=== PATIENT | female | born 1950 | race Caucasian/White ===

== ENCOUNTER 2023-10-06 15:30 | Observation (INO) | payer MEDICARE, SELFPAY ==
[2023-10-06] VITALS (23 sets, daily range): BP systolic 102–136; BP diastolic 52–66; PULSE 75–94; RESP 16–20; TEMP 36.4–36.8; O2SAT 95–100; BMI 24.4; BMI 25.4
--- NOTE | 2023-10-06 16:07 | CRLHL7_ITS ---
For Patients: As a result of the Century Cures Act, medical imaging exams and procedure reports are released immediately into your electronic medical record. You may view this report before your referring provider. If you have questions, please contact your health care provider. CLINICAL HISTORY: Left facial droop. TECHNIQUE: Standard helical CT image acquisition through the head following the administration of intravenous contrast was performed. 3D and MIP reconstructions were performed at a separate workstation and permanently archived. COMPARISON: None available. FINDINGS: No intracranial proximal large vessel occlusion or flow-limiting luminal stenosis. No evidence of cerebral aneurysm. No findings to suggest an arterial-venous shunting lesion. IMPRESSION: No intracranial proximal large vessel occlusion, flow-limiting luminal stenosis, or cerebral aneurysm. Please note that all CT scans at this facility use dose modulation, iterative reconstruction, and/or weight-based dosing when appropriate to reduce radiation dose to as low as reasonably achievable. Dictated by Osmany Hope MD @ 10/06/2023 5:03:05 PM (Electronically Signed)
--- NOTE | 2023-10-06 16:07 | CRLHL7_ITS ---
For Patients: As a result of the Century Cures Act, medical imaging exams and procedure reports are released immediately into your electronic medical record. You may view this report before your referring provider. If you have questions, please contact your health care provider. CLINICAL HISTORY: Left facial droop. TECHNIQUE: Standard helical CT image acquisition through the neck was performed after intravenous contrast bolus enhancement. 3D and MIP reconstructions were performed at a separate workstation and permanently archived. COMPARISON: None available. FINDINGS: The origins of the great vessels from the aortic arch are patent. The common carotid arteries are patent. 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 No significant stenosis of the proximal right ICA. The more distal cervical segments of the ICAs are patent. The origins and cervical segments of the vertebral arteries are patent. Note is made of corrugated morphology of the mid to distal cervical ICAs which may reflect underlying fibromuscular dysplasia IMPRESSION: 1. 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 2. Findings in the cervical arterial vasculature are suggestive of fibromuscular dysplasia. Please note that all CT scans at this facility use dose modulation, iterative reconstruction, and/or weight-based dosing when appropriate to reduce radiation dose to as low as reasonably achievable. Dictated by Osmany Hope MD @ 10/06/2023 5:01:28 PM (Electronically Signed)
--- NOTE | 2023-10-06 16:07 | CRLHL7_ITS ---
For Patients: As a result of the Century Cures Act, medical imaging exams and procedure reports are released immediately into your electronic medical record. You may view this report before your referring provider. If you have questions, please contact your health care provider. CLINICAL HISTORY: Left facial droop. TECHNIQUE: Standard helical CT image acquisition through the head was performed. COMPARISON: None available. FINDINGS: No acute intracranial hemorrhage, extra-axial collection, mass effect or midline shift. Leonard-white matter differentiation is preserved. Very mild generalized parenchymal volume loss with resulting mild prominence of cerebral sulci and the ventricular system. Mild patchy hypoattenuation in the white matter of both hemispheres likely reflect sequela of chronic small vessel ischemia. Intracranial atherosclerotic calcification. The calvarium is unremarkable. Thinning of the ocular lenses. The paranasal sinuses and mastoid air cells are well aerated. IMPRESSION: No CT evidence of acute intracranial abnormality. Please note that all CT scans at this facility use dose modulation, iterative reconstruction, and/or weight-based dosing when appropriate to reduce radiation dose to as low as reasonably achievable. Dictated by Osmany Hope MD @ 10/06/2023 4:55:55 PM (Electronically Signed)
--- NOTE | 2023-10-06 16:09 | ED_ITS ---
HPI - General Adult General Date Seen: 10/06/23 Chief complaint: Neuro Symptoms/Altered Deficit Stated complaint: headache, painful, not feeling well Time Seen by Provider: 10/06/23 15:47 Source: patient Mode of arrival: ambulatory Limitations: no limitations History of Present Illness HPI narrative: Patient is a 73-year-old female presenting to emergency department for multiple complaints. Main complaint is a headache, nausea, heart racing, neck pain. Symptoms started last night around midnight and have persisted throughout the day. She also feels unsteady walking. When they arrived her friend noticed a left facial droop but states she was not pain and tension earlier in does not know this just occurred or has been going on since yesterday. Initially a code stroke was called by staff but this was canceled due to how long symptoms have been going on for. Patient states she initially thought this was a migraine but she now says this is not feel like previous migraines. Denies symptoms like this before. Denies fevers, chills, abdominal pain. Has not noticed any specific weakness in her extremities. Denies weakness, vision changes. Is having some chest pain that does not radiate. Neck pain is on the lateral aspect of the neck in does not hurt with movement or raising of the legs. No other concerns noted. Related Data Home Medications ?Medication ?Instructions ?Recorded ?Confirmed bupropion HCl 300 mg 24 hr tablet, 300 mg PO DAILY 10/06/23 10/06/23 extended release clonazepam 1 mg tablet 1 mg PO 3XD PRN 10/06/23 10/06/23 famotidine 40 mg tablet 40 mg PO QPM 10/06/23 10/06/23 lubiprostone 24 mcg capsule PO 10/06/23 metoclopramide HCl 10 mg tablet PO 10/06/23 omeprazole 40 mg capsule,delayed 40 mg PO BID 10/06/23 10/06/23 release potassium chloride 20 mEq oral 20 meq PO Q1D 10/06/23 10/06/23 packet (Klor-Con) topiramate 100 mg tablet 100 mg PO QPM 10/06/23 10/06/23 topiramate 25 mg tablet 25 mg PO DAILY 10/06/23 10/06/23 Allergies Allergy/AdvReac Type Severity Reaction Status Date / Time amoxicillin [From Augmentin] Allergy Verified 10/06/23 16:18 clavulanic acid Allergy Verified 10/06/23 16:18 [From Augmentin] duloxetine [From Cymbalta] Allergy Verified 10/06/23 16:18 nitrofurantoin Allergy Verified 10/06/23 16:18 [From Macrobid] Review of Systems Status of ROS: Reports: 10 or more systems reviewed and unremarkable except as noted in History and below [facility] Social History Smoking Status: Never smoker Do you use any of these nicotine containing products: None Second hand tobacco smoke exposure: No How often do you have a drink containing alcohol: never AUDIT-C Alcohol total score: 0 Non-prescribed substance use: denies use Exam Narrative: Exam Narrative: Const: Well-nourished, Well-developed, in moderate distress Eyes: PERRL, no conjunctival injection, and symmetrical lids HENT: Atraumatic external nose and ears. Moist mucous membranes. Neck: Symmetric, trachea midline, No thyromegaly. CVS: RRR, No murmurs or gallops. Peripheral pulses 2+ and equal in all extremities RESP: Unlabored respiratory effort. Clear to auscultation bilaterally. GI: Nontender/Nondistended, No rebound or guarding. MSK:Extremities w/o deformity, Normal Active ROM Skin: Warm, Dry. No rashes or lesions. Neuro: Normal Muscle tone, Cranial nerves 2-12 grossly intact other than noted left facial droop just involving the lower half of the face when she tries to smile, normal [id number], normal [id number], slight unsteady gait, normal strength 5/5 right upper and lower extremities. Left upper extremity 4+/5 strength, left lower extremity 3/5, normal sensation upper and lower extremities bilaterally, normal rapid alternating movements. Negative Kernig's and Brudzinski sign Psych: Awake, Alert, & Oriented x3. Appropriate mood and affect. Const: Vital Signs, click to edit/add: Vital Signs - 24 hr 10/06/23 15:40 Temperature 97.7 F Pulse Rate [Pulse Oximeter] 94 Respiratory Rate 20 Blood Pressure [Le ft Upper Arm] 136/62 Pulse Oximetry 95 Oxygen Delivery Me thod Room Air Course Vital Signs Vital signs: Initial Vital Signs Temperature 97.7 F 10/06/23 15:40 Temperature Source Temporal Artery Scan 10/06/23 15:40 Pulse Rate 94 10/06/23 15:40 Respiratory Rate 20 10/06/23 15:40 Blood Pressure 136/62 10/06/23 15:40 Blood Pressure Mean 86 10/06/23 15:40 Blood Pressure Position Semi-Fowlers 10/06/23 15:40 Pulse Oximetry 95 10/06/23 15:40 Oxygen Delivery Method Room Air 10/06/23 15:40 Vital Signs Temperature 97.7 F 10/06/23 15:40 Pulse Rate 94 10/06/23 15:40 Respiratory Rate 20 10/06/23 15:40 Blood Pressure 136/62 10/06/23 15:40 Pulse Oximetry 95 10/06/23 15:40 Oxygen Delivery Method Room Air 10/06/23 15:40 Temperature 97.7 F 10/06/23 15:40 Pulse Rate 94 10/06/23 15:40 Respiratory Rate 20 10/06/23 15:40 Blood Pressure 136/62 10/06/23 15:40 Pulse Oximetry 95 10/06/23 15:40 Oxygen Delivery Method Room Air 10/06/23 15:40 Medications Administered Medications: Discontinued Medications Generic Name Dose Route Start Last Admin Trade Name Freq PRN Reason Stop Dose Admin Diphenhydramine HCl 25 mg 10/06/23 16:07 10/06/23 16:42 Diphenhydramine 50 Mg/Ml Inj IVP 10/06/23 16:08 25 mg ONCE ONE Administration Lactated Ringer's 1,000 mls @ 1,000 mls/hr 10/06/23 16:07 10/06/23 16:42 Lactated Ringers 1000 Ml IV 10/06/23 17:06 1,000 mls/hr .Q1H ONE Administration Metoclopramide HCl 10 mg 10/06/23 16:07 10/06/23 16:42 Metoclopramide Hcl 5 Mg/Ml Inj IVP 10/06/23 16:08 10 mg ONCE ONE Administration Medical Decision Making MDM Narrative Medical decision making narrative: Patient is a 73-year-old female here for multiple complaints. When she 1st arrived there was some concern about left facial droop and a code stroke was called but this was canceled as her symptoms have been going on since at least midnight. She is not candidate for tPA at this time. She is also pleural headache, nausea, neck pain, heart racing. She has negative Kernig's and Brudzinski's and no obvious signs of meningitis at this time. Will treat her headache with a migraine cocktail including Reglan, Benadryl, 1 L of fluids. Also do CT scan of the head without contrast lung CTA of the head and neck. CBC, CMP, COVID/flu/RSV, magnesium, urinalysis, troponin, EKG all ordered. CBC, CMP returned showing no concerning abnormalities. COVID/flu/RSV is negative. Point of care troponin is 1.2 along with a point care troponin that is 0. EKG shows no concerning findings. Patient has finished her medications in the still having slight headache but states it is better. She is no longer noticing the chest discomfort. CT and CTA showed no acute abnormalities other than mild arthrosclerotic stenosis the proximal left ICA along with findings of the cervical arterial vascular dissect justify fibromuscular dysplasia. I spoke to [facility] about the patient's left leg weakness and left facial droop and while this seems like an odd combination for a stroke they do recommend MRI in the morning. The facial weakness does spare the forehead in seems unlikely to be Sams's palsy. Patient will be admitted to the hospitalist service Lab Data Labs: Lab Results 10/06/23 10/06/23 Range/Units 15:45 16:13 WBC 7.37 (4.50-11.00) K/uL RBC 3.99 L (4.00-5.20) m/uL Hgb 12.1 (12.0-16.0) gm/dL Hct 37.0 (33.0-51.0) % MCV 93 (80-100) fL MCH 30 (26-34) pg MCHC 33 (32-36) gm/dL RDW Coeff of Krystina 13.0 (11.5-15.5) % Plt Count 270 (140-440) K/uL Neut % (Auto) 56.6 (42.0-72.0) % Lymph % (Auto) 33.4 (20-44) % [place] % (Auto) 8.8 (0.0-11.0) % Eos % (Auto) 0.8 (0.0-7.0) % Baso % (Auto) 0.3 (0.0-3.0) % Neut # (Auto) 4.17 (1.7-7.0) K/uL Lymph # (Auto) 2.46 (0.90-2.90) K/uL [place] # (Auto) 0.60 (0.00-0.90) K/UL Eos # (Auto) 0.06 (0.00-0.50) K/uL Baso # (Auto) 0.02 (0.00-0.30) K/uL Abs Immat Gran (auto) 0.01 (0.00-0.30) K/uL Imm/Tot Granulo (auto) 0.1 % Sodium 137 (135-149) mmol/L Potassium 3.7 (3.6-5.1) mmol/L Chloride 105 (96-114) mmol/L Carbon Dioxide 21 (20-32) mmol/L Anion Gap 11 (7-15) mEq/L BUN 16 (7-30) mg/dL Creatinine 1.0 (0.5-1.5) mg/dL Estimated Creat Clear 42.07 Estimated GFR 60 ml/min Glucose 103 (60-115) mg/dL Calcium 9.6 (8.4-10.6) mg/dL Magnesium 1.9 (1.5-2.6) mg/dL Total Bilirubin 0.4 (0.1-1.5) mg/dL AST 35 (12-35) U/L ALT 22 (4-35) U/L Alkaline Phosphatase 70 (40-150) U/L Total Protein 7.4 (6.0-8.3) g/dL Albumin 4.6 (3.3-5.0) g/dL SARS-CoV-2 (PCR) Negative SARS-CoV-2 (Negative) Influenza Type A (PCR) Negative PCR FLU A (Negative) Influenza Type B (PCR) Negative PCR FLU B (Negative) RSV (PCR) Negative PCR RSV (Negative) POC Creatinine 1.2 (0.6-1.3) mg/dl POC Troponin I 0.00 L (0.01-0.04) ng/ml Imaging Data CT scan head: Attestation: I have reviewed the pertinent imaging results. Radiologist's impression: No CT evidence of acute intracranial abnormality. Please note that all CT scans at this facility use dose modulation, iterative reconstruction, and/or weight-based dosing when appropriate to reduce radiation dose to as low as reasonably achievable. Dictated by Osmany Hope MD @ 10/06/2023 4:55:55 PM CTA head: Attestation: I have reviewed the pertinent imaging results. Radiologist's impression: No intracranial proximal large vessel occlusion, flow-limiting luminal stenosis, or cerebral aneurysm. Please note that all CT scans at this facility use dose modulation, iterative reconstruction, and/or weight-based dosing when appropriate to reduce radiation dose to as low as reasonably achievable. Dictated by Osmany Hope MD @ 10/06/2023 5:03:05 PM CTA neck: Attestation: I have reviewed the pertinent imaging results. Radiologist's impression: 1. 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 2. Findings in the cervical arterial vasculature are suggestive of fibromuscular dysplasia. Please note that all CT scans at this facility use dose modulation, iterative reconstruction, and/or weight-based dosing when appropriate to reduce radiation dose to as low as reasonably achievable. Dictated by Osmany Hope MD @ 10/06/2023 5:01:28 PM ECG Data Attestation: I personally reviewed and interpreted this ECG as follows: Prior ECG tracings: not available for review Interpretation: Normal sinus rhythm with rate 91 beats per minute, normal intervals, normal axis, no ST or T-wave abnormalities Discharge Plan Discharge Clinical Impression: Left leg weakness, Facial droop Patient Disposition: Admitted As Observation Condition: Stable Prescriptions: No Action famotidine 40 mg tablet 40 mg PO QPM clonazepam 1 mg tablet 1 mg PO 3XD PRN topiramate 25 mg tablet 25 mg PO DAILY omeprazole 40 mg capsule,delayed release(DR/EC) 40 mg PO BID potassium chloride [Klor-Con] 20 mEq packet 20 meq PO Q1D topiramate 100 mg tablet 100 mg PO QPM metoclopramide HCl 10 mg tablet PO bupropion HCl 300 mg tablet extended release 24 hr 300 mg PO DAILY lubiprostone 24 mcg capsule PO Follow Up/Referrals: Maria Luisa Gant MD [Primary Care Provider] -
--- OUTSIDE RECORDS SUMMARY | 2023-10-06 16:18 | XMS_ITS | Continuity of Care Document ---
Author Organization [facility] Address [address] [place] [address] Phone Care Team Providers Care Transmitter Chief Name Role Phone Ryan Goldberg MD Unavailable Unavailable Advance Directives Directive Yes / No Effective Date File Name No Information Encounters Encounter Description Practice Location Reason(s) For Visit Diagnoses Date Provider Providers Copied on Encounter [facility], [address], [place], [address], [place] tel:[phone] [facility], No Information Jun-2 2-201 3 Ashlyn Davis. [facility] [address], [place], [address], [place]. tel:[phone] Family History Family Member Type Diagnosis Age At Onset No Information Payers Payer name Insurance type Covered republican ID Authoriza tion(s) No Information Social History Type Description Quantity Date Captured Comments Sex Female Smoking Status No Information Chief Complaint And Reason For Visit No Information Reason For Referral Reason For Referral No Information History Of Present Illness Encounter Date Complaint History Of Prese nt Illness No Information Functional Status Date Functional Assessmen t No Information Instructions Date Instruction Additional Infor mation No Information Assessments Type Assessment Date No Information Patient Care Teams Name Effective Dates (start - stop) Status Members No Information
--- OUTSIDE RECORDS SUMMARY | 2023-10-06 16:18 | XMS_ITS | Continuity of Care Document ---
Author Organization [facility] Address [address] [place] [address] Phone Care Team Providers Care Suction Roller Name Role Phone Fred Larkin Unavailable Unavailable Allergies, Adverse Reactions, Alerts Substance Reaction Status Criticality amitriptyline Active No Information nitrofurantoin Active No Informatio n duloxetine Active No Information codeine Active No Information Medications Medication Instructions Dosage Effective Dates (start - stop) Status Comments ZOMIG (unknown strength) Not Available - Active VALTREX (unknown strength) Not Available - Active TOPIRAMATE (unknown strength) Not Available - Active OMEPRAZOLE (unknown strength) Not Available - Active LEVOTHYROXINE SODIUM (unknown strength) Not Available - Active CLONAZEPAM (unknown strength) Not Available - Active VITAMIN D3 (unknown strength) Not Available - Active EXCEDRIN MIGRAINE (unknown strength) Not Available - Active TIZANIDINE HCL (unknown strength) Not Available - Active Procedures Procedure Date Office/Outpatient Visit,Est, Mod 2018 Office/Outpatient Visit,New, Mod 2018 Advance Directives Directive Yes / No Effective Date File Name No Information Encounters Encounter Description Practice Location Reason(s) For Visit Diagnoses Date Provider Providers Copied on Encounter [facility], [address], [place], [id number], [place] tel:[phone] [facility] No Information [address] [facility], [address], [place], [id number] , [place]. [phone] Office/Outpat ient Visit,Est, Mod [facility], [address], [place], [id number], [place] tel:[phone] [facility] Other spondylosis, cervical region 9 Julio Ibarra. [facility], [address] [facility] [address], [place], [place], [id number] , . [phone] Referring Provider: [facility] [address], [place], [address]. tel:[phone] Office/Outpat ient Visit,New, Mod [facility], [address], [place], [place], [id number], tel:[phone] [facility] Other spondylosis, cervical region [address] [facility], [address], [place], [place], [id number] , [place]. [phone] Referring Provider: [facility] Bello [facility] [address], [place], [address]. tel:[phone] Family History Family Member Type Diagnosis Age At Onset No Information Payers Payer name Insurance type Covered democrat ID Authoriza tion(s) No Information Social History [...]
[2023-10-06 16:19] LABS: Basophils Absolute Auto 0.02 K/uL (0.00-0.30); Basophils Percent Auto 0.3 % (0.0-3.0); Eosinophils Absolute Auto 0.06 K/uL (0.00-0.50); Eosinophils Percent Auto 0.8 % (0.0-7.0); Hemoglobin* 12.1 gm/dL (12.0-16.0); Immature Granulocytes Abs Auto 0.01 K/uL (0.00-0.30); Immature Granulocytes Pct Auto 0.1 %; Lymphocytes Absolute Auto 2.46 K/uL (0.90-2.90); Lymphocytes Percent Auto 33.4 % (20-44); Mean Corpuscular HGB Conc 33 gm/dL (32-36); Mean Corpuscular Hemoglobin 30 pg (26-34); Mean Corpuscular Volume 93 fL (80-100); Monocytes Percent Auto 8.8 % (0.0-11.0); Neutrophils Absolute Auto 4.17 K/uL (1.7-7.0); Neutrophils Percent Auto 56.6 % (42.0-72.0); Platelet Count* 270 K/uL (140-440); Red Blood Count 3.99 m/uL (4.00-5.20); White Blood Count* 7.37 K/uL (4.50-11.00)
--- OUTSIDE RECORDS SUMMARY | 2023-10-06 16:19 | XMS_ITS | Clinical Summary ---
Author Organization [facility] Address [place], [place] [address] Care Team Providers Care Safety Net Maker Name Role Phone Dawsonkaran Tameka Coello MANAGER GOVERNMENT Unavailable [phone] Larry Cole MD Unavailable Marcy Escobar RN Unavailable Hola Michael MD Unavailable Sadie Santana MANAGER GOVERNMENT Unavailable [phone] Malika Cortes TITLE CURATOR Unavailable [phone] Medardo Escamilla DO Unavailable Maria Luisa Gant MD Primary Care Provider Allergies Active Allergy Reactions Criticality Noted Date Comments Amitriptyline Mental Status Change,*Unknown - Follow up needed 03/02/2014 Amoxicillin-Pot Clavulanate Stomach Upset 01/28/2014 Duloxetine Anxiety 09/17/2011 Induced suicidal thoughts Duloxetine Hcl Emotional Disturbance 10/06/2012 Nitrofurantoin Palpitations High 07/16/2012 Other reaction(s): Adverse reaction heart races Ondansetron Other - Describe In Comment Field Not sure if allergic or not Medications Medication Sig Dispensed Refills Start Date End Date Status omeprazole (PRILOSEC) 40 mg Delayed-Release capsule Take one capsule twice a day. 0 02/16/2019 Active LINZESS 290 mcg cap capsule 12/27/2019 Active AMITIZA 24 mcg capsule 12/17/2019 Active metoclopramide HCl (REGLAN) 10 mg tablet Take 10 mg by mouth. 05/18/2020 Active cholecalciferol (Vitamin D) 1,000 unit capsuleIndications:Vi tamin D deficiency Take 2 Capsules (2,000 units) by mouth once daily. 180 Capsule 3 03/02/2021 Active acetaminophen (TYLENOL EXTRA STRGTH) 500 mg tablet MAY TAKE 1-2 TABLETS BY MOUTH EVERY 4-6 HOURS NEEDED FOR PAIN 03/14/2021 Active topiramate (TOPAMAX) 100 mg tablet Take 100 mg by mouth at bedtime. 06/06/2022 Active Nurtec ODT 75 mg orally disintegrating tablet DISSOLVE 1 TABLET ON THE TONGUE AT ONSET OF MIGRAINE. NO MORE THAN 1 TABLET IN 24 HOURS. NO MORE THAN 8 PILLS PER MONTH 05/31/2022 Active dextroamphetamine-amp hetamine (AdderalL) 10 mg tabletIndications:Dep ression, unspecified depression type Take 1 Tablet (10 mg) by mouth 2 times daily at 7 AM and Noon. 180 Tablet 08/15/2023 Active buPROPion (WELLBUTRIN XL) 300 mg Extended-Release tabletIndications:Dep ression, unspecified depression type Take 1 Tablet (300 mg) by mouth once daily. 90 Tablet 3 08/15/2023 Active clonazePAM (KLONOPIN) 1 mg tabletIndications:Gen eralized anxiety disorder Take 1 Tablet (1 mg) by mouth 3 times daily if needed for Anxiety or Agitation (akathisia). 270 Tablet 1 08/15/2023 Active sennosides-docusate (SENOKOT S) (8.6-50 mg) tabletIndications:S/P laparoscopic cholecystectomy Take 1 Tablet by mouth 2 times daily if needed for Constipation. 20 Tablet 08/15/2023 Active potassium chloride (K-RAO) 20 mEq packetIndications:Hyp okalemia Mix one packet with liquid and take by mouth every other day. 45 Packet 1 08/15/2023 Active cetirizine (ZYRTEC) 10 mg tabletIndications:[place] allergic rhinitis due to pollen Take 1 Tablet (10 mg) by mouth once daily if needed for Allergy Symptoms. 90 Tablet 08/15/2023 Active tiZANidine (ZANAFLEX) 2 mg tabletIndications:Chr onic TMJ pain TAKE 1 TABLET BY MOUTH DAILY FOR MUSCLE TIGHTNESS IN JAW AND NECK. MAY TAKE 1 ADDITIONAL TABLET DAILY NEEDED FOR HEADACHE OR TMJ PAIN. 30 Tablet 1 08/15/2023 Active valACYclovir (VALTREX) 500 mg tabletIndications:HSV -1 (herpes simplex virus 1) infection Take 1 Tablet (500 mg) by mouth once daily. 90 Tablet 2 08/15/2023 Active topiramate (TOPAMAX) 25 mg tabletIndications:[place] without status migrainosus, not intractable, unspecified migraine type 1 tablet daily with 100 mg tablet to make 125 mg daily 100 Tablet 3 08/15/2023 Active doxycycline 100 mg tabletIndications:Acu te non-recurrent maxillary sinusitis Take 1 Tablet (100 mg) by mouth two times daily before meals for 10 days. 20 Tablet 08/30/2023 4 Active Problems Problem Noted Date Diagnosed Date Chronic cholecystitis 07/23/2023 Persistent depressive disorder 05/16/2022 Steatosis 10/21/2021 Adenomatous polyp of colon 01/11/2020 Overview: Dec 2019- repeat 5 years. Prediabetes 12/30/2019 Overview: Dx Dec 2019. A1c 5.7 Esophageal dysmotility 04/27/2019 Overview: Nov 2018 swallow study: Esophageal dysmotility, Reflux Following with [facility] esophagus expert Dr. Sherman Chronic GERD 02/01/2019 Overview: Confirmed on endoscopy by GI. Ok to continue BID PPI> Actinic keratosis 02/02/2018 Overview: Derm exam with biopsies JAN 2018 and September 2018 TMJ (temporomandibular joint disorder) 8 Overview: Evaluated by ENT as well as TMJ specialist at [facility] 07/18/17. Depression, major, recurrent, mild 04/01/2017 Panic disorder without agoraphobia 05/08/2016 Sensorineural hearing loss, bilateral 08/30/2014 Overview: Has hearing aids Osteoporosis 06/02/2013 Overview: Dx 2013: started Reclast sometime after that. Improvement on subsequent Dexa scans (2015, 2017, 2019). Got Reclast yearly (2014, 2015, 2016, 2018, 2019) through immunology clinic but as of 2021 they were no longer doing this for an unknown reason. Transferred managemetn to PCP but as she had >5 years of Reclast this was not continued. Offered Endo consult to determine if other reason to continue medication. Dexa 2022 - 12% worsening in BMP at spine. Discussed referral to Endo for further review given hx. Chronic Pain Syndrome: effec mental health and is exacerbated by M.H. 05/26/2012 Migraine headache 05/22/2012 Overview: Follows with [facility]. Liver disease 11/26/2011 Overview: Moderated steatohepatitis based on 2017 biopsies Autoimmune hepatitis mananged through [place] (Dr Valero) Osteoarthritis 09/20/2011 Overview: Knees, feet, hands, neck. Not rheumatoid. HSV-1 (herpes simplex virus 1) infection 011 Overview: Takes Valtrex daily to prevent outbreak Degeneration of cervical intervertebral disc Overview: Has seen [facility] Sjogren's syndrome 04/26/2008 Overview: Follows with [facility] Dr Camacho every 6 months. Generalized anxiety disorder 2006 Selective IgA immunodeficiency Overview: Follows with [facility] Dr Camacho every 6 months. Fibromyalgia Resolved Problems Problem Noted Date Diagnosed Date Resolved Date Protein-calorie malnutrition , unspecified severity 10/21/2021 06/24/2023 Dysthymic disorder 10/15/2014 6 CRPS (complex regional pain syndrome), lower limb 03/02/2014 04/30/2014 Overview: EMG Right lower extremity Nov 2013: Normal. Anemia 06/25/2013 11/20/2013 Generalized anxiety disorder 11/19/2012 11/19/2012 Rule out Panic disorder without agoraphobia 05/26/2012 07/09/2014 Major depressive disorder in partial remission 09/20/2011 04/01/2017 Shoulder impingement syndrome 09/17/2011 04/27/2019 Mild right patellofemoral osteoarthritis 09/17/2011 09/20/2011 Headache(784.0) 09/17/2011 05/22/2012 Adjustment disorder with depressed mood 2006 09/20/2011 Encounters Date Type Department Care Team Description 09/25/2023 1:30 PM CDT Telemedicine [facility] [address] [place] [address] Hola Michael MD Telehealth; Medication Management (Follow up) 09/23/[address] [address] Hola Michael MD ETTA ([facility] for ANITRA Letter/) 09/21/2023 Travel 09/19/2023 11:30 AM CDT Ancillary Procedure [facility] [address] [place] [address] 09/19/2023 Telephone [facility] [address] [place] [address] Maria Luisa Gant MD Referral (stomach x-ray) 09/18/2023 1:00 PM CDT Telemedicine [facility] [address] [place] [address] Deepti Roberts PsyD, PÉREZ Telehealth; Trmt Plan 09/18/2023 Travel 09/05/2023 2:30 PM CDT Telemedicine [facility] [address] [place] [address] Hola Michael MD Telehealth; Medication List Update (Not using Senokot) 09/03/2023 Travel 08/30/2023 2:05 PM CDT Office Visit [facility] [address] [place] [address] Lisa Mclean PA URI 08/30/2023 Travel 08/19/2023 Telephone [facility] [address] [place] [address] Oswald Pastor AuD Hearing Aid (Batteries) 08/07/2023 10:45 AM CDT Office Visit [facility] [address] [place] [phone] Keyla Mtz PA Surgical Followup (GS S/P Lap Julieta) 08/06/2023 Travel 08/01/2023 2:30 PM CDT Telemedicine [facility] [address] [place] [address] Hola Michael MD Telehealth; Medication List Update 07/31/2023 Travel 07/29/2023 1:05 PM CDT Office Visit [facility] [address] [place] [address] Maria Luisa Gant MD Establish Care 07/29/2023 10:10 AM CDT Nurse/Clinic Staff Only [facility] [address] [facility] [address] [facility] [address] [place] [phone] Nurse, Yo Surgical Followup (07/23/23 ROBOTIC ASSISTED LAPAROSCOPIC CHOLECYSTECTOMY AND LYSIS OF ADHESIONS//) 07/29/2023 Travel 07/29/2023 Telephone [facility] [address] [facility] [address] [place] [phone] Moises Jain ra, MD Surgical Followup 07/26/2023 Travel 07/26/2023 Telephone [facility] [address] [place] [address] Rafal Rodríguez MD Package 07/25/2023 Telephone [facility] [address] [place] [address] Rafal Rodríguez MD Refill Request (Hearing aids) 07/23/2023 2:54 PM CDT Anesthesia Event [facility] [address] [place] [address] Donya Shipley, Joey Del Cid MD 07/23/2023 2:03 PM CDT - 07/23/2023 4:04 PM CDT Surgery [facility] [address] [place] [address] Moises Jain ra, MD ROBOTIC ASSISTED LAPAROSCOPIC CHOLECYSTECTOMY AND LYSIS OF ADHESIONS 07/23/2023 12:17 PM CDT - 07/23/2023 6:15 PM CDT Hospital Encounter [address] [place] [address] Moises Jain ra, MD S/P laparoscopic cholecystectomy (Primary Dx) Discharge Disposition: Home Self Care 07/23/2023 Travel 07/19/2023 Travel 07/18/2023 Telephone [facility] [address] [place] [address] Deepti Roberts PsyD, PÉREZ Virtual visit 07/16/2023 Travel 07/08/2023 3:05 PM CDT Preop Visit [facility] [address] [place] [address] Rafal Rodríguez MD Pre-Op Exam (DOS 07/22 Robotic assisted laparoscopic cholecystectomy @[facility] ) 07/08/2023 Travel from Last 3 Months Immunizations Name Administration Dates Next Due AMB Influenza, IIV3 (Age >=3 years)(Flu Clinic Only) 12/29/2012 AMB Influenza, IIV4 PF (=>6 mos Flulaval,Fluzone Fluarix)(Flu Clinic Only) 01/05/2014 COVID-19 vaccine (Pfizer-Bio NTech 30mcg/0.3mL) 12YO+ BIVALENT PF, MDV 02/05/2022 COVID-19 vaccine (Pfizer-Bio NTech 30mcg/0.3mL) 12YO+ STEFANIE-SUCROSE PF, MDV 07/25/2021 COVID-19 vaccine (Pfizer-Bio NTech 30mcg/0.3mL) PF, MDV 12/28/2020,07/09/2020,2020 Influenza A (H1N1), Inactiva lamont (Age >=3 Years) 02/08/2009 Influenza, IIV3 (Age 6-35 mos) 01/16/2011,2009 Influenza, IIV3 (Age >=3 years) 12/29/2012,02/24,02/05/2006 Influenza, IIV4 01/05/2016,01/20/2015,01/05/2014 Influenza, Inactivated AIIV4 (Age 65+ Years) Preserv Free 01/14/2023,02/05/2022,12/28/2020,2019 Influenza, Inactivated IIV3 (Age 65+ Years) Preserv Free 12/24/2018,01/01/2018,01/07/2017 Pneumococcal Poly,23-Valent (Pneumovax) 02/19/2018 Pneumococcal conj 13-Valent (Prevnar 13) 12/24/2018,01/07/2017 Pneumococcal, Unspecified 01/13/2017 Td (Age >=7 Years) 09/11/2017 Tdap 06/03/2006 Zoster (Shingrix-RZV, recombinant) 01/21/2019, Family History Medical History Relation Name Comments Alcohol/Drug Brother 1 oldest brother alcohol issues Diabetes Brother 2 Heart Disease Father Psychiatric illness Mother anxiety and depression symptoms Dystonia Other Cancer-breast No Family History Relation Name Status Comments Brother 1 Brother 2 Father Maternal Grandfather Maternal Grandmother Mother Other Alive Niece Paternal Grandfather Paternal Grandmother Sister Son 1 Alive Son 2 Alive Son 3 Alive Social History Tobacco Use Types Packs/Day Years Used Date Smoking Tobacco: Never Smokeless Tobacco: Never Tobacco Cessation:Counseling Given: Yes Alcohol Use Standard Drinks/Week Comments Not Currently 0 (1 standard drink = 0.6 oz pur e alcohol) does not drink alcohol PHQ-2 Answer Date Recorded PHQ-2 TOTAL SCORE 6 09/25/2023 Social Connections Answer Date Recorded Frequency of Communication with Friends and Fami ly 4 04/10/2023 Financial Resource Strain Answer Date R ecorded Difficulty of Paying Living Expenses 3 04/10/2023 Difficulty of Paying Living Expenses Not on file 04/10/2023 Food Insecurity Answer Date Recorded Worried About Running Out of Food in the Last Ye ar 1 04/10/2023 Transportation Needs Answer Date Record ed Lack of Transportation (Medical) 2 04/10/2023 Housing Stability Answer Date Recorded Unable to Pay for Housing in the Last Year 2 04/10/2023 Sex and Gender Information Value Date Recorded Sex Assigned at Not on file Gender Identity Not on file Sexual Orientation Not on file Obstetrics History Para Term AB IAB SAB Ectopic Multiple Livin g Live Births 5 3 3 0 2 1 1 0 0 3 0 Date Outcome GA Total Labor Labor/2nd/3rd Weight Sex Type Anes PTL Michaelle A1 A5 Name Clin Term Term Term SAB IAB Last Filed Vital Signs Vital Sign Reading Time Taken Comments Blood Pressure 113/75 08/30/2023 2:02 PM CDT Pulse 103 08/30/2023 2:02 PM CDT Temperature 37.2 ??C (99 ??F) 08/30/2023 2:02 PM CDT Respiratory Rate 14 08/07/2023 11:0 3 AM CDT Oxygen Saturation 97% 08/30/2023 2:02 PM CDT Inhaled Oxygen Concentration - - Weight 62.5 kg (137 lb 12.8 oz) 08/30/2023 2:02 PM CDT Height 160 cm (5' 3) 08/07/2023 11:03 AM CDT Body Mass Index 24.41 08/07/2023 11:03 AM CDT Plan of Treatment Upcoming Encounters Date Type Department Care Team (Late st Contact Info) Description 10/09/2023 8:00 AM CDT Office Visit [facility] [address] [place] [address] Dionte Jyotsna, [facility] [address] [place] [address] 10/24/2023 3:00 PM CDT Telemedicine [facility] [address] [place] [address] Deepti Roberts, Darek, [address] [place] [address] 10/28/2023 12:10 PM CDT Phone Office Visit [facility] [address] [place], [place] [phone] Medardo Escamilla DO [address] [place], [place] [phone] 11/05/2023 9:30 AM CDT Telemedicine [facility] [address] [place] [address] Hola Micahel MD [address] [place] [address] 12/05/2023 10:30 AM CDT Telemedicine [address] [address] Hola Michael MD [address] [place] [phone] 01/02/2024 10:30 AM CDT Telemedicine [address] [address] Hola Michael MD [address] [place] [phone] 01/30/2024 2:00 PM CDT Telemedicine [facility] [address] [place] [address] Deepti Roberts PsyD, [address] [place] [address] 05/19/2024 11:00 AM QUALITY DIRECTOR Office Visit [facility] [address] [facility] [address] [place] [address] Health Maintenance Due Date Last Done Comments Influenza for age 65+ 12/15/2023 01/14/2023 , 02/05/2022, 12/28/2020, Additional history exists Medicare Wellness for age 65+ 01/15/2024 01/14/2023, 10/18/2021, 12/28/2019, Additional history exists Mammogram for age 45-75 02/05/2024 02/05/20 23, 12/07/2021, 11/29/2020, Additional history exists BMI (ht and wt on same day) for age 18+ 08/06/2024 08/07/2023, 07/29/2023, 07/08/2023, Additional history exists Depression screening for age 12+ 09/24/2024 09/25/2023, 09/19/2023, 09/18/2023, Additional history exists Colonoscopy through age 75 01/03/202501/03, 07/07/2012 (Completed outside of [facility]) COVID-19 vaccine series (2022- season) 2025 02/04/2023, 02/05/2022, 07/25/2021, Additional history exists Postponed from 04/01/2023 (Other) Lipids for age 45-75 10/18/2026 10/18/2021, 10/19/2020, 01/05/2016, Additional history exists Tetanus booster 09/12/2027 09/11/2017, 05/16, 06/03/2006 (Completed outside of [facility]) Tdap Completed 06/03/2006 Hepatitis C screening for age 18-79 Completed 05/13/2013 Pneumococcal series for age 65+ Completed 12/24/2018, 02/19/2018, 01/13/2017, Additional history exists Zoster (shingles) series for age 50+ Completed 01/21/2019, 11/19/2018 DEXA/DXA scan for age 65+ Completed 2022, 02/16/2020, 01/20/2018, Additional history exists Procedures Procedure Name Priority Date/Time Associated Diagnosis Comments XR ABDOMEN 1 VIEW PAPITO 09/19/2023 11:34 AM CDT Bloating Diarrhea, unspecified type PATH TISSUE EXAM Today 07/23/2023 3:51 PM CDT ENDOTRACHEAL TUBE Routine 07/23/2023 3:2 3 PM CDT ENDOTRACHEAL TUBE Routine 07/23/2023 3:2 3 PM CDT ENDOTRACHEAL TUBE Routine 07/23/2023 3:2 3 PM CDT ROBOTIC ASSISTED LAPAROSCOPIC CHOLECYSTECTOMY XI Elective 07/23/2023 2:39 PM CDT Recurrent biliary colic Case Notes 90 MINS - T/FROBOTPA TO ASSIST Special Needs 5' 3 65.2 kg BMI 25.48 SCAN-CARDIAC STRIP 07/23/2023 12:00 AM CDT XR DXA BONE DENSITY 2 SITES AXIAL Routine 02/04/2023 1:48 PM CDT Osteoporosis, unspecified osteoporosis type, unspecified pathological fracture presence XR MAMMO PHILLY BILAT SCREEN Routine 02/04/2023 1:18 PM CDT Visit for screening mammogram LIPID PANEL Routine 10/18/2021 2:30 PM CDT Medicare annual wellness visit, subsequent SCAN-COLONOSCOPY 01/04/2020 1:00 PM CDT ANTI HCV Routine 05/13/2013 10:35 AM QUALITY DIRECTOR Need for hepatitis C screening test from Last 3 Months or Most Recently Relevant to Health Maintenance Results * XR ABDOMEN 1 VIEW (09/19/2023 11:34 AM CDT) Anatomical Region Laterality Modality Abdomen Computed Radiogr aphy 09/19/2023 3:25 PM CDT Narrative 09/19/2023 3:25 PM CDT For Patients: ??As a result of the Cures Act, medical imaging exams and procedure reports are released immediately into your electronic medical record. ??You may view this report before your referring provider. ??If you have questions, please contact your health care provider. Indication: Diarrhea, unspecified type Bloating Technique: 2 AP views of the abdomen. Comparison: 10/01/2022 Findings: Nonobstructive bowel gas pattern. No large pneumoperitoneum. Visualized lung bases are clear. Mild degenerative changes of the bilateral hips. Moderate degenerative changes of the visualized spine. Impression: Nonobstructive bowel gas pattern. No significant stool burden. Dictated by Jeff Mccoy MD @ 09/19/2023 3:25:34 PM (Electronically Signed) Procedure Note Osmany Mccoy MD - 06/06/2024 For Patients: As a result of the Cures Act, medical imagingexams and procedure reports are released immediately into your electronicmedical record. You may view this report before your referring provider.If you have questions, please contact your health care provider. Indication: Diarrhea, unspecified type Bloating Technique: 2 AP views of the abdomen. Comparison: 10/01/2022 Findings: Nonobstructive bowel gas pattern. No large pneumoperitoneum. Visualized lung bases are clear. Mild degenerative changes of the bilateral hips. Moderate degenerative changes of the visualized spine. Impression: Nonobstructive bowel gas pattern. No significant stool burden. Dictated by Jeff Mccoy MD @ 09/19/2023 3:25:34 PM (Electronically Signed) Sadie Santana NP GENERAL IMAGING * PATH TISSUE EXAM (07/23/2023 3:51 PM CDT) Case Report Pathology Report ?Case: [id number] ? Authorizing Provider: ??Moises Mcqueen ? Collected: ? 07/23/2023 1551 ? MD Jeff ? Ordering Location: ? [facility] ?Received: ?07/24/2023 0717 ? Pathologist: ? Danielito Tyler, ? MD ? Specimen: ?Gallbladder ? 07/25/2023 2:24 PM CDT [facility] Final Diagnosis A) GALLBLADDER, CHOLECYSTECTOMY: 1. Chronic cholecystitis 2. Cholelithiasis 3. Negative for dysplasia and malignancy 07/25/2023 2:24 PM T [facility] Clinical Information Chronic cholecystitis 07/25/2023 2:24 PM CDT [facility] Gross Description A) Received fresh labeled with the patient's name and gallbladder, is an intact gallbladder with attached cystic duct, 9.0 x 4.0 x 4.0 cm. The lumen contains multiple dark green smooth stones, 5.0 x 3.0 x 0.9 cm in aggregate. The mucosa is dark green and velvety. The wall is uniformly 0.1 cm in thickness. No polyp or mass is identified. No lymph node is identified. [employer] Builder sections to include inked en face cystic duct margin are submitted in 1 cassette. TTP 07/24/2023 07/25/2023 2:[address] [facility] Microscopic Description The final diagnosis is based on microscopic examination of appropriate sections of all specimens. 07/25/2023 2:24 PM CDT [facility] Additional Information Interpreted at [facility], Central Laboratory - [address], [place] [address] 07/25/2023 2:24 PM CDT [facility] Tissue SPECIMEN FROM GALLBLADDER / Unknown 07/23/2023 3:51 PM CDT 07/24/2023 7:17 AM CDT Moises Campos MD PATHOLOGY/ CYTOLOGY [facility] [address] [place] [address], [facility] SENDOUT INTERNAL ZIP [id number] [place] [id number] * HCHG TUBE PR1, HCHG STYLET PR1, HCHG MOUTHPIECE PR1 (07/23/2023 3:23 PM CDT) Narrative Donya Shipley CRNA - 07/23/2023 3:23 PM CDT Donya Shipley CRNA ? 07/23/2023 ??3:24 PM Procedure: ETT Patient location during procedure: OR ETT Properties Mask Ventilation: easy Final Technique: direct laryngoscopy Type: straight Location: oral Cuffed: yes Tube Size: 7.0 mm Stylet: yes Laryngoscope Blade: Roldan Blade Size: 2 Cormack-Lehane Grade View: 1 Insertion Attempts: 1 Placement Verification: auscultation, end tidal CO2 and symmetrical chest wall movement Assessment: pharynx clear, atraumatic and dentition unchanged Secured at: 23 Measured From: teeth Tooth guard used and removed: yes Difficulty: 0 (not difficult) Gila Nelsno MD ANESTHESIA PX NOTE ORDERABLES * SCAN-CARDIAC STRIP (07/23/2023 12:00 AM CDT) Narrative 07/23/2023 12:00 AM CDT Ordered by an unspecified provider. Other Clinical Staff OTHER * XR DXA BONE DENSITY 2 SITES AXIAL (02/04/2023 1:48 PM CDT) Anatomical Region Laterality Modality Spine, HIPS, HIPL, HIPR Computed Radiography 02/04/2023 1:48 PM CDT Impressions 02/05/2023 7:33 AM CDT OSTEOPOROSIS. T-score meets the WHO criteria for osteoporosis at one or more measured sites. The risk of osteoporotic fracture increases approximately two-fold for each standard deviation decrease in T-score. Narrative 02/05/2023 7:33 AM CDT For Patients: As a result of the Cures Act, medical imaging exams and procedure reports are released immediately into your electronic medical record. You may view this report before your referring provider. If you have questions, please contact your health care provider. EXAM: XR DXA BONE DENSITY 2 SITES AXIAL LOCATION: [facility] DATE: 02/04/2023 INDICATION: D. osteoporosis (must be documented by previous exam) - m81.0 Osteoporosis, Unspecified Osteoporosis Type, Unspecified Pathological Fracture Presence DEMOGRAPHICS: Age- 72 years. Gender- Female. Menopausal status- Postmenopausal. COMPARISON: 02/16/2020 TECHNIQUE: Dual-energy x-ray absorptiometry (DXA) performed with routine technique. FINDINGS: DXA RESULTS -Lumbar Spine: L1-L4: BMD: 0.876 g/cm2. T-score: -2.5. Z-score: -0.4. -RIGHT Hip Total: BMD: 0.829 g/cm2. T-score: -1.4. Z-score: 0.4. -RIGHT Hip Femoral neck: BMD: 0.780 g/cm2. T-score: -1.9. Z-score: 0.2. -LEFT Hip Total: BMD: 0.698 g/cm2. T-score: -2.5. Z-score: -0.6. -LEFT Hip Femoral neck: BMD: 0.721 g/cm2. T-score: -2.3. Z-score: -0.3. WHO T-SCORE CRITERIA -Normal: T-score at or above -1 SD -Osteopenia: T-score between -1 and -2.5 SD -Osteoporosis: T-score at or below -2.5 SD The World Health Organization (WHO) criteria is applicable to perimenopausal females, postmenopausal females, and men aged 50 years or older. INTERVAL CHANGE -There has been a 12% decrease in lumbar spine BMD. -There has been a 4% decrease in the right hip BMD. -There has been a 1% increase in the left hip BMD. FRACTURE RISK -FRAX Results: The 10 year probability of major osteoporotic fracture is 20.6%, and of hip fracture is 8.5%, based on left femoral neck BMD. RECOMMENDATIONS: Consider treatment if major osteoporotic fracture score is greater than or equal to 20%, or if the hip fracture score is greater than or equal to 3%. Procedure Note Rivera Singh MD - 02/05/2023 For Patients: As a result of the Cures Act, medical imagingexams and procedure reports are released immediately into your electronicmedical record. You may view this report before your referring provider.If you have questions, please contact your health care provider. EXAM: XR DXA BONE DENSITY 2 SITES AXIAL LOCATION: [facility] DATE: 02/04/2023 INDICATION: D. osteoporosis (must be documented by previous exam) - m81.0Osteoporosis, Unspecified Osteoporosis Type, Unspecified PathologicalFracture Presence DEMOGRAPHICS: Age- 72 years. Gender- Female. Menopausal status-Postmenopausal. COMPARISON: 02/16/2020 TECHNIQUE: Dual-energy x-ray absorptiometry (DXA) performed with routinetechnique. FINDINGS: DXA RESULTS -Lumbar Spine: L1-L4: BMD: 0.876 g/cm2. T-score: -2.5. Z-score: -0.4. -RIGHT Hip Total: BMD: 0.829 g/cm2. T-score: -1.4. Z-score: 0.4. -RIGHT Hip Femoral neck: BMD: 0.780 g/cm2. T-score: -1.9. Z-score: 0.2. -LEFT Hip Total: BMD: 0.698 g/cm2. T-score: -2.5. Z-score: -0.6. -LEFT Hip Femoral neck: BMD: 0.721 g/cm2. T-score: -2.3. Z-score: -0.3. WHO T-SCORE CRITERIA -Normal: T-score at or above -1 SD -Osteopenia: T-score between -1 and -2.5 SD -Osteoporosis: T-score at or below -2.5 SD The World Health Organization (WHO) criteria is applicable toperimenopausal females, postmenopausal females, and men aged 50 years orolder. INTERVAL CHANGE -There has been a 12% decrease in lumbar spine BMD. -There has been a 4% decrease in the right hip BMD. -There has been a 1% increase in the left hip BMD. FRACTURE RISK -FRAX Results: The 10 year probability of major osteoporotic fracture is20.6%, and of hip fracture is 8.5%, based on left femoral neck BMD. RECOMMENDATIONS: Consider treatment if major osteoporotic fracture scoreis greater than or equal to 20%, or if the hip fracture score is greaterthan or equal to 3%. IMPRESSION: OSTEOPOROSIS. T-score meets the WHO criteria for osteoporosis at one ormore measured sites. The risk of osteoporotic fracture increasesapproximately two-fold for each standard deviation decrease in T-score. Rafal Rodríguez MD DEXA * XR MAMMO PHILLY BILAT SCREEN (02/04/2023 1:18 PM CDT) Anatomical Region Laterality Modality BREASTS, Breast Left, Breast Right Bilateral Mammography Impressions 02/05/2023 11:32 AM CDT ??There is no radiographic evidence for malignancy. ??Recommend annual mammograms. MAMMOGRAM ASSESSMENT: ??ACR 1 Negative PATIENTS: You will also receive a letter with your examination results in an easy to read format. ??If you have questions about your results, please contact your referring provider. Narrative 02/05/2023 11:32 AM CDT For Patients: As a result of the 21st Century Cures Act, medical imaging exams and procedure reports are released immediately into your electronic medical record. You may view this report before your referring provider. If you have questions, please contact your health care provider. XR MAMMO PHILLY BILAT SCREEN [[id number]] CLINICAL HISTORY: ??This is an asymptomatic 72 y.o. patient. INDICATION FOR EXAM: Mammogram Screening. TECHNIQUE: CC & MLO views were obtained. ??This study was evaluated with the assistance of Computer-Aided Detection. Breast Tomosynthesis was used in interpretation. COMPARISON FILM: Yes 12/07/21 [employer] [facility] 11/29/20 [employer] FINDINGS: ??The breasts have scattered areas of fibroglandular density. There are no dominant masses, suspicious micro calcifications or areas of architectural distortion. Rafal Rodríguez MD MAMMO * (ABNORMAL) LIPID PANEL (10/18/2021 2:30 PM CDT) CHOLESTEROL,TOTAL 203(H) 100 - 199 mg/dL 10/18/2021 9:02 PM CDT [facility] TRIGLYCERIDES 73 <150 mg/dL 10/18/2021 9:02 PM CDT [facility] HDL CHOLESTEROL 75 >40 mg/dL 9:02 PM CDT [facility] NON-HDL CHOLESTEROL 128 <145 mg/dl 10/18/2021 9:02 PM CDT [facility] CHOL/HDL RATIO 2.71 <4.50 10/18/2021 9:02 PM CDT [facility] LDL CHOLESTEROL 113 <=130 mg/dL 10/18/2021 9:02 PM CDT [facility] VLDL CHOLESTEROL 15 <=30 mg/dL 10/18/2021 9:02 PM CDT [facility] PROVIDER ORDERED STATUS RANDOM 10/18/2021 9:02 PM CDT [facility] Blood BLOOD SPECIMEN / Unknown Venipuncture / Unknown 10/18/2021 2:30 PM CDT 10/18/2021 2:31 PM CDT Rafal Rodríguez MD CHEMISTRY [facility] [address] [place] [address], [place] * SCAN-COLONOSCOPY (01/04/2020 1:00 PM CDT) Narrative Procedure Note Nirmala Ellison MD - 01/04/2020 12:10 PM CDT [facility] [address], [address], [place] [address] Patient Name: Elizabeth Peñaloza Gender: Female Exam Date: 01/04/2020 Visit Number: [id number] Age: 69 Years Date of : 1950 Attending MD: Nirmala Ellison MD Medical Record#: [id number] Procedure: Colonoscopy Indications: Constipation Abdominal pain Family history of polyps in patient's mother. Age diagnosed: 50-59. Referring MD: Referral Self Primary MD: Rafal Rodríguez MD Medications: Admitting Medications: 0.9% Normal Saline at [employer] Intra Procedure Medications: Patient received monitored anesthesia care. Complications: No immediate complications Procedure: An examination of the heart and lungs was performed and found to be withinacceptable limits. The patient was therefore deemed a reasonablecandidate for endoscopy and sedation. The risks and benefits of the procedure were explained to the patient.After obtaining informed consent, the patient received monitoredanesthesia care and I passed the scope without difficulty via the rectum to the ileum. The appendiceal orificeand ic valve were identified. The scope was retroflexed during theexamination The quality of the prep was good (Miralax/Gatorade DoublePrep). This was a complete examination throughout the entire colon. Findings: Polyp location: rectum. Quantity: 2. Size: 2 mm. Polyp shape:sessile. Maneuver: polypectomy was performed with a cold biopsy forceps. Removal: complete. Retrieval: complete. Bleeding: none. Melanosis coli. Location - entire colon. Remainder of the exam is normal. Impression: Colorectal polyps Melanosis coli Preliminary Plan: Repeat colonoscopy in 5 years Pathology Results: A: RECTUM, POLYPS: 1. Hyperplastic polyps (2) MICROSCOPIC A: Performed Electronically signed by: Osmani Mcknight MD Interpreted at [facility] Digestive [facility], [address] [place], [place] [id number] Orders Instruction(s)/Education: Instruction/Education Timeframe Assessment Colon Cancer Prevention K63.5 Colon Polyps K63.5 Final Plan: Return for a colonoscopy in 5 years. We will attempt to contact you at appropriate intervals via U.S. mail. Wemay not be able to find you or contact you at that time, therefore youshould know that the responsibility for following our recommendation restswith you. If you don't hear from us at the time your procedure is due,please contact our office to schedule an appointment. If your contactinformation should change, please contact our office so that we can updateyour record. _Electronically signed by: Nirmala Ellison MD 01/04/2020 cc: Rafal Rodríguez MD cc: Referral Self cc: Tameka Barrow NP Nirmala Ellison MD OTHER * ANTI HCV [[id number]] (05/13/2013 10:35 AM QUALITY DIRECTOR) ANTI HCV Non-reacti ve [facility] Blood specimen (specimen) BLOOD SPECIMEN / Unknown 05/13/2013 10:35 AM QUALITY DIRECTOR 05/13/2013 10:32 AM QUALITY DIRECTOR Drea Carrizales DO SEND OUTS [facility] INTERNAL ZIP [id number] [place] [phone] from Last 3 Months or Most Recently Relevant to Health Maintenance Advance Directives Documents on File Type Date Recorded 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 Healthcare Directive 07/23/2023 12:25 PM Healthcare Directive 05/05/2019 11:29 AM * Full Code (Latest Code Status on File) Date Activated Date Inactivated Comments 07/23/2023 12:39 PM 07/23/2023 8:20 PM Question Answer Comments Code Status Discussion: Reviewed Preferences Care Teams Safety Net Maker Relationship Specialty Start Date End Date Maria Luisa Gant MD [address] [place] [address] PCP - General Family Practice 07/29/23 Tameka Barrow NP Rheumatology Nurse Practitioner 09/11/17 Larry Cole MD Neurology Neurology 09/11/17 Marcy Escobar, RN [address] [place], [place] [id number] Registered Nurse 07/30/19 Hola Michael MD [address] [place], [place] [phone] Psychiatry Psychiatry 12/28/19 Sadie Santana, RAHEL [address] [place], [place] [id number] Gastroenterology Gastroenterology 12/28/19 Malika Cortes TITLE CURATOR [address] [place], [place] [phone] Nickel Plant Operator 06/01/20 Medardo Escamilla DO [address] [facility] [address] [place] [address] Endocrinology 04/16/23
--- OUTSIDE RECORDS SUMMARY | 2023-10-06 16:19 | XMS_ITS | Clinical Summary ---
Author Organization [facility] Address [address] [place] [address]. [place] [address] Care Team Providers Care Plant Chief Name Role Phone aRfal Rodríguez MD Primary Care Provider [phone] Allergies Active Allergy Reactions Criticality Noted Date Comments Amitriptyline 09/20/2014 Amoxicillin-Pot Clavulanate GI Disturbance 11/2014 Codeine 09/20/2014 Duloxetine Hcl 09/20/2014 Fentanyl 09/20/2014 Nitrofurantoin 09/20/2014 Ondansetron 09/20/2014 Medications Medication Sig Dispensed Refills Start Date End Date Status Cholecalciferol (VITAMIN D3 PO) Take 4,000 Units by mouth every evening Active clonazePAM (KLONOPIN) 0.5 MG tablet Take 0.5 mg by mouth 3 times daily as needed for anxiety Active Multiple Vitamins-Minerals (MULTIVITAMIN PO) Take by mouth daily Active polyethylene glycol (MIRALAX/GLYCOLAX ) powder Take 17 g by mouth daily as needed Active valACYclovir (VALTREX) 500 MG tablet Take 500 mg by mouth At Bedtime Active cycloSPORINE (RESTASIS) 0.05 % ophthalmic emulsion Place 1 drop into both eyes At Bedtime Active levothyroxine (SYNTHROID/LEVOTH ROID) 25 MCG tablet Take 25 mcg by mouth daily Active tiZANidine (ZANAFLEX) 2 MG tablet Take 2 mg by mouth 3 times daily as needed for muscle spasms Active LATUDA 20 MG TABS tablet Take 60 mg by mouth At Bedtime 01/28/2020 Active NURTEC 75 MG TBDP Take 75 mg by mouth as needed for migraine 05/23/2020 Active methylphenidate (METADATE ER) 20 MG CR tablet Take 20 mg by mouth daily AT 1000 DAILY 05/19/2020 Active methylphenidate (RITALIN) 10 MG tablet Take 10 mg by mouth 2 times daily as needed AT 0700 & 1200 03/28/2020 Active topiramate (TOPAMAX) 100 MG tablet Take 100 mg by mouth At Bedtime Active buPROPion (WELLBUTRIN XL) 300 MG 24 hr tablet Take 300 mg by mouth every morning Active LINZESS 290 MCG capsule Take 290 mcg by mouth every morning 06/03/2020 Active AMITIZA 24 MCG capsule Take 24 mcg by mouth every morning 04/19/2020 Active metoclopramide (REGLAN) 10 MG tablet Take 10 mg by mouth as needed for nausea 06/08/2020 Active pyridostigmine (MESTINON) 60 MG tablet Take 120 mg by mouth 2 times daily 05/11/2020 Active omeprazole (PRILOSEC) [address] capsule Take 1 capsule (20 mg) by mouth daily 31 capsule 12/31/2022 Active promethazine (PHENERGAN) [address] 1 suppository (25 mg) rectally every 6 hours as needed for nausea (ab pain, vomiting) 5 suppository 12/31/2022 Active Active Problems Problem Noted Date Diagnosed Date Dehydration 06/13/2020 Hypokalemia 06/13/2020 Dizziness 06/13/2020 Weakness 06/13/2020 Prolonged QT interval 06/13/2020 Social History Tobacco Use Types Packs/Day Years Used Date Smoking Tobacco: Never Adolescent Education Answer Date Record ed Getting School Help Needed Not on file 01/04 Sex and Gender Information Value Date Recorded Sex Assigned at Not on file Gender Identity Not on file Sexual Orientation Not on file Last Filed Vital Signs Vital Sign Reading Time Taken Comments Blood Pressure 125/59 12/31/2022 6:30 PM CDT Pulse 79 12/31/2022 6:30 PM CDT Temperature 37.3 ??C (99.2 ??F) 12/31/2022 3:04 PM CD T Respiratory Rate 16 12/31/2022 3:04 PM CDT Oxygen Saturation 100% 12/31/2022 6:30 PM CDT Inhaled Oxygen Concentration - - Weight 61.7 kg (136 lb) 05/22/2023 12:54 PM PLATE PUT IN WORKER Height 160 cm (5' 3) 12/31/2022 3:04 PM CDT Body Mass Index 24.09 12/31/2022 3:04 PM CDT Plan of Treatment Health Maintenance Due Date Last Done Comments ANNUAL REVIEW OF HM ORDERS 1950 CT COLONOGRAPHY 1950 DEXA 1950 FIT 1950 FLEX SIG 1950 sDNA (Cologuard) 1950 COLONOSCOPY 06/17/1961 COLORECTAL CANCER SCREENING 06/17/1961 HEPATITIS C SCREENING 06/17/1969 LIPID 1991 RSV VACCINE ( & 60+) (1 - 1-dose 60+ series) 2011 FALL RISK ASSESSMENT 06/17/2016 TSH W/FREE T4 REFLEX 06/13/2021 06/13/2020 PHQ-2 (once per calendar year) 2023 COVID-19 Vaccine ( season) 2023 02/04/2023, 02/05/2022, 07/25/2021, Additional history exists MEDICARE ANNUAL WELLNESS VISIT 01/15/2024 01/14/2023, 10/18/2021, 12/28/2019 MAMMO SCREENING 02/04/2025 02/04/2023, 01/14, 12/07/2021, Additional history exists ADVANCE CARE PLANNING 06/30/2025 06/30/2020 GLUCOSE 12/31/2025 12/31/2022, 0305/2020, 06/13/2020, Additional history exists DTAP/TDAP/TD IMMUNIZATION (3 - Td or Tdap) 09/12/2027 09/11/2017, 06/03/2006 Pneumococcal Vaccine: 65+ Years Completed 12/24/2018, 02/19/2018, 01/13/2017, Additional history exists ZOSTER IMMUNIZATION Completed 01/21/2019, 9 INFLUENZA VACCINE Completed 01/14/2023, , 12/28/2020, Additional history exists HPV IMMUNIZATION Aged Out No longer e ligible based on patient's age to complete this topic IPV IMMUNIZATION Aged Out No longer e ligible based on patient's age to complete this topic MENINGITIS IMMUNIZATION Aged Out No l onger eligible based on patient's age to complete this topic RSV MONOCLONAL ANTIBODY Aged Out No l onger eligible based on patient's age to complete this topic Procedures Procedure Name Priority Date/Time Associated Diagnosis Comments MA SCREENING BILATERAL W/ PHILLY Routine 02/04/2023 1:18 PM CDT COMPREHENSIVE METABOLIC PANEL STAT 12/31/2022 4:12 PM CDT TSH WITH FREE T4 REFLEX STAT 06/13/2020 2:39 PM PLATE PUT IN WORKER Prolonged QT interval from Last 3 Months or Most Recently Relevant to Health Maintenance Results * (ABNORMAL) Comprehensive metabolic panel (12/31/2022 4:12 PM CDT) Sodium 145 136 - 145 mmol/L 12/31/2022 4:47 PM T [facility] Potassium 3.8 3.4 - 5.3 mmol/L 12/31/2022 4:47 PM T [facility] Chloride 111(H) 98 - 107 mmol/L 12/31/2022 4:47 PM CDT [facility] Carbon Dioxide (CO2) 25 22 - 29 mmol/L 12/31/2022 4:47 PM CDT [facility] Anion Gap 9 7 - 15 mmol/L 12/31/2022 4:47 PM CDT [facility] Urea Nitrogen 7.5(L) 8.0 - 23.0 mg/dL 12/31/2022 4:47 PM T [facility] Creatinine 1.09(H) 0.51 - 0.95 mg/dL 12/31/2022 4:47 PM CDT [facility] Calcium 9.6 8.8 - 10.2 mg/dL 12/31/2022 4:47 PM T [facility] Glucose 83 70 - 99 mg/dL 12/31/2022 4:47 PM CDT [facility] Alkaline Phosphatase 70 35 - 104 U/L 12/31/2022 4:47 PM CDT [facility] AST 27 0 - 45 U/L 12/31/2022 4:[address] [facility] Comment:Reference intervals for this test were updated on 09/24/2022 to more accurately reflect our healthy population. There may be differences in the flagging of prior results with similar values performed with this method. Interpretation of those prior results can be made in the context of the updated reference intervals. ALT 12 0 - 50 U/L 12/31/2022 4:47 PM T [facility] Comment:Reference intervals for this test were updated on 09/24/2022 to more accurately reflect our healthy population. There may be differences in the flagging of prior results with similar values performed with this method. Interpretation of those prior results can be made in the context of the updated reference intervals. Protein Total 7.1 6.4 - 8.3 g/dL 12/31/2022 4:47 PM CDT [facility] Albumin 4.6 3.5 - 5.2 g/dL 12/31/2022 4:47 PM T [facility] Bilirubin Total 0.3 <=1.2 mg/dL 12/31/2022 4:47 PM T [facility] GFR Estimate 54(L) >60 mL/min/1. 73m2 12/31/2022 4:47 PM CDT [facility] Blood VENOUS LINE / Unknown Venipuncture / Unknown 12/31/2022 4:12 PM CDT 12/31/2022 4:15 PM CDT Natacha De Oliveira MD LAB - BLOOD ORDERABL ES [facility] [address] [facility] [place] [address], [facility] [phone] * TSH with free T4 reflex (06/13/2020 2:39 PM PLATE PUT IN WORKER) TSH 0.46 0.40 - 4.00 mU/L 06/13/2020 3:52 PM PLATE PUT IN WORKER [facility] Blood specimen (specimen) 06/13/2020 2:39 PM PLATE PUT IN WORKER 06/13/2020 3:06 PM PLATE PUT IN WORKER Rivera Allen MD LAB - BLOOD ORDERABL ES [facility] [address] [place], [place] [address] [phone] from Last 3 Months or Most Recently Relevant to Health Maintenance Advance Directives For more information, please contact: [phone] Documents on File Type Date Recorded Patient Accounts Payable Analyst Expl anation Advance Directives and Living Will 06/30/2020 11:38 AM Invalid Directive datred 04-27-19 received * Full Code (Latest Code Status on File) Date Activated Date Inactivated Comments 06/14/2020 12:02 PM 12/31/2022 2:58 PM Question Answer Comments Code status determined by: Discussion with kennethe nt/ legal decision maker * Full Code Date Activated Date Inactivated Comments 06/13/2020 7:35 PM 06/14/2020 12:02 PM All basic and advanced life-sustaining interventions are performed as appropriate Question Answer Comments Code status determined by: Discussion with patie nt/ legal decision maker Care Teams Plant Chief Relationship Specialty Start Date End Date Rafal Rodríguez MD PCP - General 10/26/18
--- OUTSIDE RECORDS SUMMARY | 2023-10-06 16:19 | XMS_ITS | Continuity of Care Document ---
Author Organization [facility] Address [address] [address] [place] [address] Phone Care Team Providers Care Mentally Impaired Teacher Name Role Phone Esther MCGINNIS, Sadie Unavailable Unavailable Allergies, Adverse Reactions, Alerts Substance Reaction Status Criticality AMOXICILLIN TRIHYDRATE Sick Active No In formation POTASSIUM CLAVULANATE Sick Active No Inf ormation amitriptyline Unknown Active No Information DULOXETINE HCL Suicidal Active No Informatio n NITROFURANTOIN MACROCRYSTALLINE Adverse reaction Activ e No Information nitrofurantoin Adverse reaction Active No Inform ation Medications Medication Instructions Dosage Effective Dates (start - stop) Status Comments lactulose 10 gram/15 mL oral solution take 30 milliliter by oral route three times per week - Active Linzess 290 mcg capsule take 1 Tablet by Oral route every day 1 Tablet - Active Reglan 10 mg tablet Take 1 tablet twice daily before breakfast and dinner - Active omeprazole 40 mg capsule,delayed release take 1 capsule by oral route 2 times every day before a meal 40 MG - Active Amitiza 24 mcg capsule take 1 capsule by oral route 2 times every day with food and water 24 MCG - Active famotidine 40 mg tablet take 1 tablet by oral route every day at bedtime 40 MG - Active guanfacine 1 mg tablet take 1 tablet by oral route every day at bedtime 1 MG - Active metoclopramide 10 mg tablet take one tablet before breakfast and dinner. - Active Prozac 20 mg capsule take 1 capsule by oral route every day in the morning 20 MG - Active BUPROPION HCL (unknown strength) take 350 mg one time aily Not Available - Active clonazepam 1 mg tablet take 1 tablet by ORAL route 3 times every day as needed 1 MG - Active topiramate 100 mg tablet take 1 Tablet by oral route every day 100 MG - Active ipratropium bromide 42 mcg (0.06 %) nasal spray spray 2 spray by intranasal route 4 times every day in each nostril 2 spray - Active tizanidine 2 mg capsule take 1 capsule by oral route every day 2 MG - Active valacyclovir 500 mg tablet take 1 tablet by oral route every day 500 MG - Active Vitamin D3 100 mcg (4,000 unit) capsule take 1 tablet by oral route every day - Active Procedures Procedure Date Offic/outpt E&m Estab Mod-hi 4 24 Established Level 5 Offic/outpt E&m Estab Mod-hi 4 24 Offic/outpt E&m Estab Mod-hi 4 23 Established Level 5 Ugi Endo; W/insrt Guide Wire Ugi Endo; W/bx 1/mx Level Iv-surg Path Gross/micro Special Stains; Grp I Microorg 23 Offic/outpt E&m Estab Low-mod 3 Routine Serum Collection Offic/outpt E&m Estab Mod-hi 2 23 Offic/outpt E&m Estab Mod-hi 4 23 Established Level 4 FibroScan Offic/outpt E&m Estab Low-mod 2 Routine Serum Collection Established Level 3 Established Level 4 Offic/outpt E&m Estab Low-mod 1 Established Level 3 Telephone E&M II 11-20 Min MD ALYSE Established Level 3 Established Level 3 or 15-24 min 2019 Established Level 4 or 25-39 min 2019 Established Level 4 or 25-39 min 2019 Established Level 4 or 25-39 min 2019 Dietitian New Virtual Visit Telephone E&M II 11-20 Min MD ALYSE Colonoscopy Flex; W/bx /mx Level Iv-surg Path Gross/micro 20 Established Level 3 or 15-24 min 2019 Routine Serum Collection Bld Ct; Hg & Platelet Ct Autom Comp Metabolic Panel Prothrombin Time Established Level 5 or 40 min 0 Telephone E&M II 11-20 Min MD ALYSE Offic/outpt E&m Estab Mod-hi 2 19 Najera PH Monitor Najera Placement Offic/outpt E&m Estab Mod-hi 2 19 Esophageal Motility Study Offic/outpt E&m Estab Mod-hi 2 19 Ugi Endo; W/bx 1/mx Level Iv-surg Path Gross/micro 19 Offic/outpt E&m Estab Mod-hi 2 19 Routine Serum Collection Hepatic Function Panel Offic/outpt E&m Estab Mod-hi 2 17 Routine Serum Collection Thyroid Stim Hormone Offic/outpt E&m Estab Mod-hi 2 17 Routine Serum Collection Gg; Iga, Igd, Igg, Igm, Ea Hepatic Function Panel Offic/outpt E&m Estab Low-mod 6 Routine Serum Collection Iron Iron Binding Capacity Thyroid Stim Hormone Vitamin D; 25 Hydroxy Cyanocobalamin Hepatic Function Panel Offic/outpt E&m Estab Mod-hi 2 14 Routine Serum Collection Bld Ct; Hg/pltlt Ct Auto/compl 14 Bilirubin; Direct Comp Metabolic Panel Prothrombin Time Offic/outpt E&m Estab Mod-hi 2 13 Routine Serum Collection Bld Ct; Hg/pltlt Ct Auto/compl 13 Hepatic Function Panel Basic Metabolic Panel Prothrombin Time Offic/outpt E&m Estab Mod-hi 2 13 Routine Serum Collection Bld Ct; Hg/pltlt Ct Auto/compl 13 Hepatitis C Antibody; Hepatitis A Antibody; Igg & Ig 13 Ag-immunoassay; Hep B Surface 3 Hepatic Function Panel Basic Metabolic Panel Lipid Panel Colonoscopy Flex; Dx (dec Pro) 13 Advance Directives Directive Yes / No Effective Date File Name No Information Encounters Encounter Description Practice Location Reason(s) For Visit Diagnoses Date Provider Providers Copied on Encounter [facility], [address] [address], [place], [place], [id number], [place] tel:[phone] [facility] No Information 4 Esther Noel. [address], [id number], [place]. tel:[phone] Offic/outpt E&m Estab Mod-nh 4 [facility], [address] [address], [place], [place], [id number], [place] tel:[phone] [facility] GI Symptoms or Concerns (chief complaint) Irritable bowel syndrome with constipationG astroparesisG astroesophage al reflux disease, unspecified whether esophagitis presentNausea 4 Esther Noel. 3001 [facility] [address], [place], [id number], [place]. tel:[phone] Tameka Barrow NP. tel:[phone] erring Provider: Referral Self, USE FOR SELF REFERRALS. [facility], [address] [address], [place], [id number], [place] tel:[phone] [facility] BloatingDiarr hea, unspecified Ian-0 4 Esther Noel. 3001 [facility], [facility] [address], [place], [place], [id number], [place]. tel:[phone] [facility], [address] [address], [place], [address], [place] tel:[phone] [place] [address] No Information 4 Spilman PAC Catia. [address] [place] [address], [id number], [place]. tel:[phone] [facility], [address] [address], [place], [id number], [place] tel:[phone] [place] [address] No Information 4 Esther Noel. [address] [place] [address], [id number], [place]. tel:[phone] Established Level 5 [facility], [address] [address], [place], [address], [place] tel:[phone] [place] [address] GI Symptoms or Concerns (chief complaint) Irritable bowel syndrome with constipationG astroparesisB loating Apr-2 4 Esther Noel. [address] [place] [address], [id number], [place]. tel:[phone] Tameka Barrow NP. tel:[phone] erring Provider: Referral Self, USE FOR SELF REFERRALS. [facility], [address] [address], [place], [id number], [place] tel:[phone] [facility] Gallstones Fe- 4 Esther Noel. 3001 [facility], [address], [id number], [place]. tel:[phone] [facility], [address] [address], [place], [id number], [place] tel:[phone] [facility] No Information 4 Jairo Casiano. [address] [place] [address], [id number], [place]. tel:[phone] Offic/outpt E&m Estab Mod-hi 4 [facility], [address] [address], [place], [id number], [place] tel:[phone] [facility] GI Symptoms or Concerns (chief complaint) NauseaGastrop aresisIrritab le bowel syndrome with constipationC onstipation, unspecified constipation typeVitamin D deficiencyVit eric B12 deficiencySlo w transit constipationB loating 4 Jairo Casiano. [address] [place] [address], [id number], [place]. tel:[phone] Tameka Barrow NP. tel:[phone] erring Provider: Referral Self, USE FOR SELF REFERRALS. [facility], [address] [address], [place], [id number], [place] tel:[phone] [facility] Right upper quadrant pain 4 Esther Noel. [facility], [id number], [place]. tel:[phone] [facility], [address] [address], [place], [id number], [place] tel:[phone] [place] [address] No Information 3 Esther Noel. [address] [place] [address], [id number], [place]. tel:[phone] Offic/outpt E&m Estab Mod-hi 4 [facility], [address] [address], [place], [id number], [place] tel:[phone] [facility] GI Symptoms or Concerns (chief complaint) Gastroesophag eal reflux disease, unspecified whether esophagitis presentBloati ngIrritable bowel syndrome with constipationE pigastric painGastropar esis 3 Esther Noel. [address] [place] [address], [id number], [place]. tel:[phone] Tameka Barrow NP. tel:[phone] erring Provider: Referral Self, USE FOR SELF REFERRALS. [facility], [address] [address], [place], [id number], [place] tel:[phone] [facility] No Information 3 Esther Noel. [address] [place] [address], [id number], [place]. tel:[phone] Established Level 5 [facility], [address] [address], [place], [address], [place] tel:[phone] [facility] GI Symptoms or Concerns (chief complaint) Esophageal dysphagiaIrri table bowel syndrome with constipationG astroesophage al reflux disease, unspecified whether esophagitis presentGastro paresis 3 Esther Noel. [address] [place] [address], [id number], [place]. tel:[phone] Tameka Barrow NP. tel:[phone] erring Provider: Referral Self, USE FOR SELF REFERRALS. [facility], [address] [address], [place], [id number], [place] tel:[phone] [facility] GI Symptoms or Concerns (chief complaint) Esophageal dysphagiaOthe r dysphagia 3 Franklyn Briceno. [address] [place] [address], [id number], [place]. tel:[phone] Tameka Barrow NP. tel:[phone] sulting Provider: Alberto Quick MD, [address] [place] [address], [facility] [place], [address]. tel:[phone] erring Provider: Referral Self, USE FOR SELF REFERRALS. Offic/outpt E&m Estab Low-mod [facility], [address] [address], [place], [id number], [place] tel:[phone] [facility] GI Symptoms or Concerns (chief complaint) Elevated liver enzymes August-0 3 Fara Bernardo. [address], [id number], [place]. tel:[phone] Tameka Barrow NP. tel:[phone] erring Provider: Referral Self, USE FOR SELF REFERRALS. Offic/outpt E&m Estab Mod-hi 2 [facility], [address] [address], [place], [id number], [place] tel:[phone] [facility] GI Symptoms or Concerns (chief complaint) Esophageal dysmotilityGa stroesophagea l reflux disease, unspecified whether esophagitis present 3 Abdelrahman Dominguez. [address] [address], [place], [address], [place]. tel:[phone] Tameka Barrow NP. tel:[phone] erring Provider: Referral Self, USE FOR SELF REFERRALS. [facility], [address] [address], [place], [id number], [place] tel:[phone] [facility] No Information 3 Esther Noel. [address] [address], [place], [place], [id number], [place]. tel:[phone] Offic/outpt E&m Estab Mod-hi 4 [facility], [address] [address], [place], [id number], [place] tel:[phone] [facility] GI Symptoms or Concerns (chief complaint) Gastroesophag eal reflux disease, unspecified whether esophagitis presentEsopha geal dysmotilityAb normal liver function testIrritable bowel syndrome with constipationN ausea Apr- 3 Esther Noel. [address], [id number], [place]. tel:[phone] Tameka Barrow NP. tel:[phone] erring Provider: Referral Self, USE FOR SELF REFERRALS. [facility], [address] [address], [place], [id number], [place] tel:[phone] [facility] No Information 3 Esther Noel. [address], [id number], [place]. tel:[phone] [facility], [address] [address], [place], [id number], [place] tel:[phone] [facility] Constipation, unspecified constipation type 2 Esther Noel. [address] [place] [address], [id number], [place]. tel:[phone] Referring Provider: Referral Self, USE FOR SELF REFERRALS. Established Level 4 [facility], [address] [address], [place], [id number], [place] tel:[phone] [facility] GI Symptoms or Concerns (chief complaint) Irritable bowel syndrome with constipationS low transit constipationN ausea 2 Esther Noel. [facility], [id number], [place]. tel:[phone] Tameka Barrow NP. tel:[phone] erring Provider: Referral Self, USE FOR SELF REFERRALS. [facility], [address] [address], [place], [id number], [place] tel:[phone] [facility] Fatty (change of) liver, not elsewhere classified 2 Fara Bernardo. [address], [id number], [place]. tel:[phone] Tameka Barrow NP. tel:[phone] erring Provider: Referral Self, USE FOR SELF REFERRALS. Offic/outpt E&m Estab Low-mod [facility], [address] [address], [facility] [place], [id number], [place] tel:[phone] [facility] GI Symptoms or Concerns (chief complaint) TAPIA (nonalcoholic steatohepatit is) 2 Fara Bernardo. 3001 [facility], [address], [id number], [place]. tel:[phone] Tameka Barrow NP. tel:[phone] erring Provider: Referral Self, USE FOR SELF REFERRALS. [facility], [address] [address], [facility] [place], [id number], [place] tel:[phone] [facility] No Information 2 Kendell Ardon. [address], [id number], [place]. tel:[phone] Established Level 3 [facility], [address] [address], [facility] [place], [id number], [place] tel:[phone] [facility] GI Symptoms or Concerns (chief complaint) Elevated liver enzymesGastro esophageal reflux disease, unspecified whether esophagitis present 2 Maryellen Noel. [facility], [id number], [place]. tel:[phone] Tameka Barrow NP. tel:[phone] erring Provider: Rafal Rodríguez MD L, [address], [place], [address]. tel:[phone] Established Level 4 [facility], [address] [address], [facility], [address], [place] tel:[phone] [facility] GI Symptoms or Concerns (chief complaint) Irritable bowel syndrome with constipationN auseaBloating Weight loss 1 Esther Noel. [address], [id number], [place]. tel:[phone] Barrow NP. tel:[phone] erring Provider: Referral Self, USE FOR SELF REFERRALS. [facility], [address] [address], [place], [id number], [place] tel:[phone] [facility] No Information 1 Maryellen Noel. 3001 [facility], [facility] 500, [place], [place], [id number], [place]. tel:[phone] Offic/outpt E&m Estab Low-mod [facility], [address] [address], [place], [id number], [place] tel:[phone] [facility] Comment (chief complaint) Gastroesophag eal reflux disease, unspecified whether esophagitis presentFatty liverBloating Irritable bowel syndrome with constipation Jul- 1 Esther Noel. 3001 [facility], [facility] 500[place], [place], [id number], [place]. tel:[phone] Tameka Barrow NP. tel:[phone] erring Provider: Referral Self, USE FOR SELF REFERRALS. Established Level 3 [facility], [address] [address], [place], [id number], [place] tel:[phone] [facility] GI Symptoms or Concerns (chief complaint) Dysphagia, oropharyngeal phase Jun- 1 Maryellen Noel. 3[address] [facility], [address], [id number], [place]. tel:[phone] Tameka Barrow NP. tel:[phone] erring Provider: Referral Self, USE FOR SELF REFERRALS. [facility], [address] [address], [place], [id number], [place] tel:[phone] [facility] No Information 1 Maryellen Noel. 3001 [facility], [facility] [address], [place], [id number], [place]. tel:[phone] Telephone E&M II 11-20 Min MD ALYSE [facility], [address] [address], [place], [id number], [place] tel:[phone] [facility] GI Symptoms or Concerns (chief complaint) Dysphagia, oropharyngeal phase 1 Maryellen Noel. [address], [id number], [place]. tel:[phone] [facility] Tameka Barrow FI[employer] APPLICATIONS SPECIALIST. tel:[phone] erring Provider: Rafal Darden, [address], [place], [address]. tel:[phone] Established Level 3 [facility], [address] [address], [place], [id number], [place] tel:[phone] [facility] Comment (chief complaint) Irritable bowel syndrome with constipationN auseaBloating Fatty liverGastroes ophageal reflux disease, unspecified whether esophagitis present 1 Esther Noel. [address] [place] [address], [id number], [place]. tel:[phone] [facility] Tameka Barrow NP. tel:[phone] erring Provider: Referral Self, USE FOR SELF REFERRALS. Established Level 3 or 15-24 min [facility], [address] [address], [place], [address], [place] tel:[phone] [facility] Comment (chief complaint) Fatty liver 0 Tracie Fernando. [address], [id number], [place]. tel:[phone] [facility] Tameka Barrow FI[employer] APPLICATIONS SPECIALIST. tel:[phone] erring Provider: Rafal Darden, [address], [place], [address]. tel:[phone] Established Level 4 or 25-39 min [facility], [address] [address], [place], [id number], [place] tel:[phone] [facility] GI Symptoms or Concerns (chief complaint) Dysphagia, oropharyngeal phase 0 Maryellen Noel. 3001 [facility], [place] [address], [place], [id number], [place]. tel:[phone] Tameka Barrow NP. tel:[phone] erring Provider: Referral Self, USE FOR SELF REFERRALS. Established Level 4 or 25-39 min [facility], [address] [address], [place], [id number], [place] tel:[phone] [facility] GI Symptoms or Concerns (chief complaint) Esophageal dysphagiaFatt y liver Oct-2 0 Maryellen Noel. [address] [facility], [place] [address], [place], [id number], [place]. tel:[phone] Tameka Barrow NP. tel:[phone] erring Provider: Rafal Rodríugez MD L, [address], [place], [address]. tel:[phone] [facility], [address] [address], [place], [id number], [place] tel:[phone] [facility] No Information Jan- 0 Esther Noel. [address] [facility], [facility] [address], [place], [id number], [place]. tel:[phone] Established Level 4 or 25-39 min [facility], [address] [address], [place], [id number], [place] tel:[phone] [facility] Comment (chief complaint) Constipation, unspecifiedNa useaIrritable bowel syndrome with constipationD ysphagia, unspecified typeNAFLD (nonalcoholic fatty liver disease) Jan-2 0 Esther Noel. [address] [facility], [facility] [address], [place], [id number], [place]. tel:[phone] Tameka Barrow NP. tel:[phone] erring Provider: Referral Self, USE FOR SELF REFERRALS. [facility], [address] [address], [place], [id number], [place] tel:[phone] [facility] Gastroparesis 0 Jean Longyn. 3001 [facility], [address], [id number], [place]. tel:[phone] Tameka Barrow NP. tel:[phone] erring Provider: Rafal Rodríguez MD L, [address], [place], [address]. tel:[phone] Telephone E&M II 11-20 Min ALYSE [facility], [address] [address], [facility] [place], [id number], [place] tel:[phone] [facility] Comment (chief complaint) Dysphagia, unspecified typeGastropar esisElevated liver enzymes Dec- 0 Maryellen Noel. [address], [id number], [place]. tel:[phone] Tameka Barrow FI[employer] APPLICATIONS SPECIALIST. tel:[phone] erring Provider: Referral Self, USE FOR SELF REFERRALS. [facility], [address] [address], [facility], [address], [place] tel:[phone] [facility] Colorectal polypsMelanos is coliUnspecifi ed abdominal painConstipat ion, unspecifiedUn specified abdominal painPolyp of colonConstipa tion, unspecified Dec- 0 Scot Silvestre. [address], [id number], [place]. tel:[phone] Tameka Barrow FIELD APPLICATIONS SPECIALIST. tel:[phone] erring Provider: Referral Self, USE FOR SELF REFERRALS. Established Level 3 or 15-24 min [facility], [address] [address], [place], [id number], [place] tel:[phone] [facility] GI Symptoms or Concerns (chief complaint) Abnormal liver chemistryNAFL D (nonalcoholic fatty liver disease) Dec- 0 Karl Swain. [address], [id number], [place]. tel:[phone] Barrow NP. tel:[phone] erring Provider: Referral Self, USE FOR SELF REFERRALS. [facility], [address] [address], [place], [place], [id number], [place] tel:[phone] [facility] No Information Dec- [address] [place] [address], [address], [id number], [place]. tel:[phone] [facility], [address] [address], [place], [id number], [place] tel:[phone] [facility] Abnormal LFTs Dec- 0 Esther Noel. [address] [place] [address], [id number], [place]. tel:[phone] Tameka Barrow NP. tel:[phone] [facility], [address] [address], [place], [place], [id number], [place] tel:[phone] [place] [address] Nausea Dec- 0 Esther Noel. [address] [place] [address], [address], [id number], [place]. tel:[phone] Tameka Barrow NP. tel:[phone] erring Provider: Referral Self, USE FOR SELF REFERRALS. Established Level 5 or 40 min [facility], [address] [address], [place], [place], [id number], [place] tel:[phone] [facility] Additional Narrative (chief complaint) NauseaGastroe sophageal reflux disease, esophagitis presence not specifiedDysp hagia, unspecified typeSlow transit constipationS teatosisLeft upper quadrant painFamily history of colon cancer 0 Esther Noel. [address]001 [facility], [address], [id number], [place]. tel:[phone] Barrow NP. tel:[phone] erring Provider: Referral Self, USE FOR SELF REFERRALS. Telephone E&M II 11-20 Min ALYSE [facility], [address] [address], [place], [id number], [place] tel:[phone] [facility] GI Symptoms or Concerns (chief complaint) Gastroesophag eal reflux disease, esophagitis presence not specifiedEsop hageal dysmotilityGa stroparesis 0 Brayan Aguilar. 3001 [facility], [facility] [address] [place], [id number], [place]. tel:[phone] Tameka Barrow NP. tel:[phone] erring Provider: Rafal Rodríguez MD L, [address], [place], [address]. tel:[phone] Offic/outpt E&m Estab Mod-hi 2 [facility], [address] [address], [place], [id number], [place] tel:[phone] [facility] GI Symptoms or Concerns (chief complaint) GERD without esophagitisDi etary counseling and surveillanceE ssential (primary) hypertension 9 Brayan Aguilar. [address] [facility], [facility] [address], [place], [id number], [place]. tel:[phone] Tameka Barrow NP. tel:[phone] erring Provider: Referral Self, USE FOR SELF REFERRALS. [facility], [address] [address], [place], [id number], [place] tel:[phone] [facility] No Information 9 Leda Chambers. [address] [facility], [facility] [address], [place], [id number], [place]. tel:[phone] [facility], [address] [address], [place], [id number], [place] tel:[phone] [facility] Cough 9 Noe Art. [address] [facility], [facility] [address], [place], [id number], [place]. tel:[phone] Tameka Barrow NP. tel:[phone] erring Provider: Referral Self, USE FOR SELF REFERRALS. [facility], [address] [address], [place], [id number], [place] tel:[phone] [facility] Dysphagia, unspecifiedCo ugh 9 Cindy Ibarra. [address], [id number], [place]. tel:[phone] Tameka Barrow FI[employer] APPLICATIONS SPECIALIST. tel:[phone] erring Provider: Referral Self, USE FOR SELF REFERRALS. Offic/outpt E&m Estab Mod-hi 2 [facility], [address] [address], [place], [id number], [place] tel:[phone] [facility] GI Symptoms or Concerns (chief complaint) HeartburnEsop hageal dysphagiaDiet julianna counseling and surveillance 9 Shaheen Carvalho. [address] [place] [address], [id number], [place]. tel:[phone] Referring Provider: Referral Self, USE FOR SELF REFERRALS. [facility], [address] [address], [place], [id number], [place] tel:[phone] [facility] GI Symptoms or Concerns (chief complaint) Dysphagia, oropharyngeal phase 9 Noe Art. [address] [facility], [address], [id number], [place]. tel:[phone] Referring Provider: Rafal Rodríguez MD L, [address], [place], [address]. tel:[phone] [facility], [address] [address], [place], [id number], [place] tel:[phone] [facility] Oropharyngeal dysphagia Dec-0 9 Leda Chambers. [address] [facility], [address], [id number], [place]. tel:[phone] [facility], [address] [address], [place], [id number], tel:[phone] [facility] CoughOrophary ngeal dysphagia Shaheen Carvalho. [address], [id number], [place]. tel:[phone] Offic/outpt E&m Estab Mod-hi 2 [facility], [address] [address], [place], [place], [id number], tel:[phone] [facility] GI Symptoms or Concerns (chief complaint) CoughUnspecif ied constipationO ropharyngeal dysphagia Shaheen Carvalho. [address] [place] [address], [id number], [place]. tel:[phone] Referring Provider: Rafal Rodríguez MD L, [address], [place], [address]. tel:[phone] [facility], [address] [address], [place], [place], [id number], tel:[phone] [facility] Hiatal herniaGastrit is without bleeding, unspecified chronicity, unspecified gastritis typeDiarrhea, unspecifiedOt her specified congenital malformations of stomachGastri tis, unspecified, without bleedingOther specified congenital malformations of stomachDiarrh ea, unspecifiedDi aphragmatic hernia without obstruction or gangrene Shaheen Carvalho. [address] [place] [address], [id number], [place]. tel:[phone] Referring Provider: Referral Self, USE FOR SELF REFERRALS. Offic/outpt E&m Estab Mod-hi 2 [facility], [address] [address], [place], [place], [id number], [place] tel:[phone] [facility] GI Symptoms or Concerns (chief complaint) Dietary counseling and surveillanceE levated blood-pressur e reading, w/o diagnosis of htnHeartburnU nspecified constipationE levated liver enzymesCough 9 Shaheen Carvalho. [address] [place] [address], [id number], [place]. tel:[phone] Referring Provider: Rafal Rodríguez MD L, [address], [place], [address]. tel:[phone] Offic/outpt E&m Estab Mod-hi 2 [facility], [address] [address], [place], [id number], [place] tel:[phone] [facility] GI Symptoms or Concerns (chief complaint) Abnormal laboratory testDietary counseling and surveillance Shaheen Carvalho. [address] [place] [address], [id number], [place]. tel:[phone] Rick Jerez MD. tel:[phone] erring Provider: Floridalma HILL, [address] [place] [address], [address]. tel:[phone] [facility], [address] [address], [place], [id number], [place] tel:[phone] [facility] Abnormal LFTs Candelaria Haroahim. [address] [place] [address], [id number], [place]. tel:[phone] Rick Jerez MD. tel:[phone] Offic/outpt E&m Estab Mod-hi 2 [facility], [address] [address], [place], [id number], [place] tel:[phone] [facility] GI Symptoms or Concerns (chief complaint) HepatitisAbno rmal LFTsDietary counseling and surveillance Candelaria Lim. [address] [place] [address], [id number], [place]. tel:[phone] Rick Jerez MD. tel:[phone] erring Provider: Referral Self, USE FOR SELF REFERRALS. [facility], [address] [address], [place], [id number], [place] tel:[phone] [facility] Elevated liver enzymes 7 No Information Offic/outpt E&m Estab Low-mod [facility], [address] [address], [place], [id number], [place] tel:[phone] [facility] GI Symptoms or Concerns (chief complaint) Elevated liver enzymesFatigu e, unspecified typeDietary counseling and surveillanceV itamin D deficiencyVit eric B12 deficiency 6 No Information Rick Jerez MD. tel:[phone] erring Provider: Thai Camacho MD S, [address], [place], [address]. tel:[phone] Offic/outpt E&m Estab Mod-hi 2 [facility], [address] [address], [place], [id number], [place] tel:[phone] [facility] Liver Symptoms or Concerns (chief complaint) Abn Blood Chemistry Nec 4 No Information Rick Jerez MD. tel:[phone] erring Provider: Referral Self, USE FOR SELF REFERRALS. Offic/outpt E&m Estab Mod-hi 2 [facility], [address] [address], [place], [id number], [place] tel:[phone] [facility] Abnormal LFT's (chief complaint) Abn Blood Chemistry Nec 3 No Information Referring Provider: Thai Camacho MD S, [address], [place], [address]. tel:[phone] Offic/outpt E&m Estab Mod-hi 2 [facility], [address] [address], [facility] [place], [id number], [place] tel:[phone] [facility] Abnormal LFT's (chief complaint) Abn Blood Chemistry Nec 3-201 3 No Information Referring Provider: Thai Camacho MD S, [address], [place], [address]. tel:[phone] [facility], [address] [address], [place], [place], [id number], [place] tel:[phone] [facility] Colon Cancer ScreeningProc tosigmoiditis /melanosis ColiColon Cancer ScreeningProc tosigmoiditis /melanosis Coli Mar-2 0 3 Adolfo Stock. [address] [facility], [address], [place], [place], [id number], [place]. tel:[phone] Referring Provider: Thai Camacho MD S, [address], [place], [address]. tel:[phone] Family History Family Member Type Diagnosis Age At Onset Brother Problem (finding) alcoholism Brother Problem (finding) Maternal histo ry of diabetes mellitus Problem (finding) Family history of Diabetes mellitus Sister Problem (finding) Maternal histo ry of diabetes mellitus Brother Problem (finding) Renal disease Maternal grandmother Problem (finding) Cancer, unknown Brother Problem (finding) malignant neoplasm of p harynx Sister Problem (finding) Cancer, unknown Father Problem (finding) Cardiovascular disease Son Problem (finding) Liver disease Brother Problem (finding) malignant neop lasm of urinary bladder Mother Problem (finding) diverticulitis of colon Son Problem (finding) Alive and well Mother Problem (finding) Colon polyps Maternal uncle Problem (finding) Leukemia Brother Problem (finding) Cancer, unknown Mother Problem (finding) gallbladder disease Immunizations Vaccine Date Status Comments SARS-COV-2 (COVID-19) vaccin e, mRNA, spike protein, LNP, preservative free, stefani-sucrose, 30 mcg/0.3 mL dose administered Note: [facility] bi-direct ional interface ; Source: Other Registry influenza, seasonal vaccine, quadrivalent, adjuvanted, 0.5mL dose, preservative free administered Note: [facility] bi-di rectional interface ; Source: Other Registry SARS-COV-2 (COVID-19) vaccin e, mRNA, spike protein, LNP, bivalent, preservative free, 30 mcg/0.3 mL dose, stefani-sucrose formulation administered Note: [facility] bi-direct ional interface ; Source: Other Registry influenza, seasonal vaccine, quadrivalent, adjuvanted, 0.5mL dose, preservative free administered Note: [facility] bi-di rectional interface ; Source: Other Registry influenza, seasonal vaccine, quadrivalent, adjuvanted, .5mL dose, preservative free administered Note: [facility] bi-di rectional interface ; Source: Other Registry SARS-COV-2 (COVID-19) vaccin e, mRNA, spike protein, LNP, bivalent booster, preservative free, 30 mcg/0.3 mL dose, stefani-sucrose formulation administered Note: [facility] bi-d irectional interface ; Source: Other Registry SARS-COV-2 (COVID-19) vaccin e, mRNA, spike protein, LNP, preservative free, 30 mcg/0.3mL dose, stefani-sucrose formulation administered Note: MII C bi- directional interface ; Source: Other Registry influenza, seasonal vaccine, quadrivalent, adjuvanted, 0.5mL dose, preservative free administered Note: [facility] bi-di rectional interface ; Source: Other Registry influenza, seasonal vaccine, quadrivalent, adjuvanted, .5mL dose, preservative free administered Note: [facility] bi-di rectional interface ; Source: Other Registry SARS-COV-2 (COVID-19) vaccin e, mRNA, spike protein, LNP, preservative free, 30 mcg/0.3mL dose administered Note: [facility] bi-direct ional interface ; Source: Other Registry SARS-COV-2 (COVID-19) vaccin e, mRNA, spike protein, LNP, preservative free, 30 mcg/0.3mL dose administered Note: [facility] bi-direct ional interface ; Source: Other Registry SARS-COV-2 (COVID-19) vaccin e, mRNA, spike protein, LNP, preservative free, 30 mcg/0.3mL dose administered Note: [facility] bi-direct ional interface ; Source: Other Registry influenza, seasonal vaccine, quadrivalent, adjuvanted, 0.5mL dose, preservative free administered Note: [facility] bi-di rectional interface ; Source: Other Registry influenza, seasonal vaccine, quadrivalent, adjuvanted, .5mL dose, preservative free administered Note: [facility] bi-di rectional interface ; Source: Other Registry zoster vaccine recombinant administered N ote: [facility] bi-directional interface ; Source: Other Registry Seasonal trivalent influenza vaccine, adjuvanted, preservative free administered Note: [facility] bi-direct ional interface ; Source: Other Registry Prevnar 13 administered Note: [facility] bi-d irectional interface ; Source: Other Registry zoster vaccine recombinant administered S ource: Other Provider Pneumovax 23 administered Note: [facility] bi-d irectional interface ; Source: Other Registry Pneumo (2 yrs or older)(PPV) administered Source: Other Provider Influenza, injectable, MDCK, preservative free Flucelvax Quad 2017-2018Y administered Source: Other Provid er Seasonal trivalent influenza vaccine, adjuvanted, preservative free administered Note: [facility] bi-direct ional interface ; Source: Other Registry tetanus and diphtheria toxoi ds, adsorbed, preservative free, for adult use (2 Lf of tetanus toxoid and 2 Lf of diphtheria toxoid) administered Note: [facility] bi-direct ional interface ; Source: Other Registry Seasonal trivalent influenza vaccine, adjuvanted, preservative free administered Note: [facility] bi-direct ional interface ; Source: Other Registry Prevnar 13 administered Note: [facility] bi-d irectional interface ; Source: Other Registry Pneumococcal conjugate PCV 13 administere d Source: Other Provider Afluria Qd administered Note: M [facility] bi-directional interface ; Source: Other Registry Afluria Qd administered Note: M [facility] bi-directional interface ; Source: Other Registry Fluzone Quad 6mo or older administered Note: [facility] bi-direct ional interface ; Source: Other Registry Influenza, injectable, quadrivalent, preservative free, 3 yrs or older administered Source: Other Provi yaneli Afluria Qd administered Note: M [facility] bi-directional interface ; Source: Other Registry Afluria Qd administered Note: M [facility] bi-directional interface ; Source: Other Registry Fluzone Quad 6mo or older administered Note: [facility] bi-direct ional interface ; Source: Other Registry Afluria Qd administered Note: M [facility] bi-directional interface ; Source: Other Registry Afluria Qd administered Note: M [facility] bi-directional interface ; Source: Other Registry Fluzone Quad 6mo or older administered Note: [facility] bi-direct ional interface ; Source: Other Registry Flu (split) (3 yrs or older) administered Note: Invalid documented admin date was . ; Source: Other Provider Influenza, seasonal, injectable, preservative free administered Note: [facility] bi-directional interface ; Source: Other Registry Influenza, seasonal, injectable, preservative free administered Note: [facility] bi-directional interface ; Source: Other Registry Novel [id number], injectable administered Note: [facility] bi-direct ional interface ; Source: Other Registry tetanus toxoid, reduced diphtheria toxoid, and acellular pertussis vaccine, adsorbed administered Note: [facility] bi-direct ional interface ; Source: Other Registry Influenza, seasonal, injectable administe red Note: [facility] bi- directional interface ; Source: Other Registry Payers Payer name Insurance type Covered green party ID Authoriza tijohn(s) [facility] [id number] Social History Type Description Quantity Date Captured Comments Sex Female Smoking Status No Information Chief Complaint And Reason For Visit No Information Reason For Referral Reason For Referral No Information Plan Of Treatment Date Type Action Status Goal Lifestyle education regardin g diet completed Goal Lifestyle education regardin g diet completed Goal Lifestyle education regardin g diet completed Goal Lifestyle education regardin g diet completed Goal Lifestyle education regardin g diet completed Goal Lifestyle education regardin g diet completed Referral Ordered: referred to Surgery [facility] Appointment date/timeframe: 06/26/2023 ordered Referral Ordered: Xray Abdomen; Limited (AP View Only) (KUB) Appointment date/timeframe: 09/25/2022 ordered Referral Ordered: EGD With Dilation Appointment date/timeframe: 08/27/2022 ordered Referral Ordered: follow-up visit with az chaudhari md liver team 1 Day Appointment date/timeframe: 1 Day ordered Referral Ordered: FibroScan With CAP Appointment date/timeframe: First Available ordered Referral Ordered: follow-up visit with liver clinic first available ordered Referral Ordered: follow-up visit with Sadie HUGHES in 1 Year or by 07/13/2021 Appointment date/timeframe: 1 Year ordered Referral Ordered: follow-up visit with Sadie Bojorquez PAC in 2 Months or by 07/09/2020 Appointment date/timeframe: 2 Months ordered Referral Ordered: Hepatic Function Panel Appointment date/timeframe: 09/28/2020 ordered Referral Ordered: follow-up visit with Sadie Bojorquez PAC in 2 Months or by 05/09/2020 Appointment date/timeframe: 2 Months ordered Referral Ordered: follow-up visit with Maryellen peoples in 1 Month or by 03/07/2020 Appointment date/timeframe: 1 Month ordered Referral Ordered: follow-up visit with Melissa televisit in 1 Month or by 03/07/2020 Appointment date/timeframe: 1 Month ordered Referral Ordered: referred to housing counselor gastroparesis ordered Referral Ordered: Ultrasound Abdomen Appointment date/timeframe: 01/13/2020 ordered Referral Ordered: Colonoscopy Appointment date/timeframe: 01/04/2020 ordered Referral Ordered: Gastric Emptying Study (4 Hours) Appointment date/timeframe: 04/06/2019 ordered Referral Ordered: referred to Rivka Willis, TROUBLE CLERK at [place] Speech pathologist OP TROUBLE CLERK for dysphagia ordered Referral Ordered: Esoph Motility Study; Appointment date/timeframe: 01/13/2019 ordered Referral Ordered: Najera PH Monitor Appointment date/timeframe: 01/27/2019 ordered Referral Ordered: Video Swallow With Speech Pathologist/Occupational Therapist Appointment date/timeframe: 12/10/2018 ordered Referral Ordered: Liver Biopsy Image Guided Appointment date/timeframe: -today ordered Referral Ordered: follow-up visit with Raphael Gaona MD 6 Months Appointment date/timeframe: 6 Months ordered Referral Ordered: PT/INR Appointment date/timeframe: -today ordered Referral Ordered: follow-up visit 6 Months Appointment date/timeframe: 6 Months ordered Referral Ordered: FibroScan Appointment date/timeframe: -today ordered History Of Present Illness Encounter Date Complaint History Of Prese nt Illness GI Symptoms or Concerns This is a 73-year-old female who is present today in the [facility]. Forty minutes were spent on this encounter. Her medical history includes migraine headaches, Sjogren's disease, connective tissue disease, irritable bowel syndrome, constipation predominant, esophageal dysmotility, chronic nausea, gastroesophageal reflux disease and gastroparesis. She follows with her hepatology team for fatty liver. She has significant depression that is poorly controlled and follows with Psychiatry. She is not sleeping well at night. She has been under more stress recently moving into her own place in [place]. She no longer has a car. She was living with her son. Her weight has been stable. Due to GI symptoms, she recently underwent a cholecystectomy for potential biliary dyskinesia and this has not changed her symptoms.Her most problematic symptom is nausea with bloating, which is worse in the evening. She has been started on metoclopramide taking 10 mg in the morning and 10 mg before di GI Symptoms or Concerns This is a 73-year-old female who is present today via a virtual visit in the [facility] 42 minutes were spent on this encounter. Her medical history includes migraine headaches, Sjogren's, connective tissue disease. She has irritable bowel syndrome constipation predominant, esophageal dysmotility, chronic nausea, gastroesophageal reflux disease, and gastroparesis. She was followed in the liver clinic with Dr. Az Valencia for abnormal liver functioning and is followed in the esophageal Clinic for ineffective esophageal swallowing on therapy. She is currently under more stress since her son is requesting that she move into her own place with plans to relocate to [place]. She will no longer have a car. She is concerned about her 20 lb weight gain but BMI within normal range. She has been following in our clinic for intermittent bouts of right upper quadrant pain and ongoing bowel irregularity. She also has chronic bloating that is not changed with bowel cleanses. Her constipation continues to be poorly managed. She reports that she has daily bowel movements that are loose. She passes about 3-5 stools throughout the morning. The bowel frequency incapacitated her until about 1 p.m.. Despite this she does not leave the house very often. Her constipation patient therapies have included is parabola, Senokot, miralax, milk of magnesia, suppository, lactulose, benefiber. She currently is on Linzess 290 micrograms daily and Amitiza 24 micrograms 2 times daily. she has tried to stop and decreased the dose of both the Linzess and Amitiza which have resulted in worsening constipation. She did undergo a cholecystectomy 2 weeks ago and feels postop pain. the severe incapacitating pain worse after eating is better but she continues to feel bloating. the bloating incapacitating. Can be worse with eating but is present all of the time. No change with dicyclomine or two weeks of doxycycline. No correlation with bowel pattern. She has used metoclopramide occasionally but has not noted benefit. HIDA scan normal. US showed gallstones, CT scan showed normal GI tract and gallstones. CTE negative. GI Symptoms or Concerns 72-year- old female with history of migraine headaches, Sjogren's, connective tissue disease presenting to [facility] for follow-up. She is also seen by our liver clinic. 1. Reflux. She takes omeprazole 40 milligrams twice a day and famotidine 40 milligrams once daily with good control of her symptoms. 2. Gastroparesis. Symptoms of nausea intermittently. Gastric emptying study in 2019 showed 20 percent retention at 4 hours. Reglan improves her symptoms and she likes to take this intermittently. Erythromycin did not improve her symptoms, promethazine did not improve her symptoms. There is note in the chart of tardive dyskinesia from another medication. Patient does not remember having any such side effect, nor does her son Rogerio with her today. She does note a history of TMJ. She has tolerated Reglan in the past. 3. Irritable bowel syndrome with constipation. She is taking Amitiza 24 micrograms twice a day and Linzess 290 micrograms daily. With this she is carmen GI Symptoms or Concerns Elizabeth fulton is a 72-year-old female who is present today via virtual visit in the [facility] for ongoing management of nausea, esophageal dysmotility, gastroesophageal reflux disease, irritable bowel syndrome constipation predominant, and gastroparesis. She is followed in Liver Clinic with Dr. Az Chaudhari for abnormal liver functioning and is followed in the Esophageal Clinic for ineffective esophageal swallowing on therapy.She follows up for management of IBS-C poorly controlled, nausea. She has chronic migraine headaches for which she has been using excederine daily up until her ER visit this weekend where she was noted to be dehydrated, given reglan and IV fluids and discharged to home. She continues to have significant bowel irregularity with post prandial bloating. She had a recent xray due to diarrhea and found to have formed stool on linzess 290 mcg daily and amitiza 24 mcg two times daily. Her diet is low in fiber, appetite poor. She has been using dicyclomine which helps with abdominal pain. She has days without a bowel movement. The pain is typically in the upper abdomen. This pain is incapacitating at times. Worse in the evening and present but less severe if not eating. She has 2 to 5 BM per day that are loose with a sense of incomplete defecation. She completed a miralax bowel cleanse last saturday which did not change the bloating or pain. She always has a sense of incomplete emptying. She has tried benefiber which worsens bloating. When the bloating is severe she has difficulty burping. She has tried suppositories which fall out. She has sjogrens. she has metoclopramide prescribed for nausea which she rarely uses. She has tardive dyskinesia from psychiatric medications. Given her severe nausea responds to metoclopramide she chooses to continue this sparingly. She carries a history of gastroparesis found on GES in 2019 with a four hour retention of 20% retention. Gastric neurostimulator deferred due to irregular bowel pattern. Erythromycin has been deferred due to liver abnormalities. Past constipation therapies include senna, lactulose, miralax. Colonoscopy in 2019 normal. no fecal incontinence. Depression poorly controlled. Her son is supportive and present with her. 40 minutes spent on this encounter. GI Symptoms or Concerns Elizabeth fulton is a 72-year-old female who is present today via virtual visit in the [facility] for ongoing management of nausea, esophageal dysmotility, gastroesophageal reflux disease, irritable bowel syndrome constipation predominant, and gastroparesis. She is followed in Liver Clinic with Dr. Az Chaudhari for abnormal liver functioning and has been followed in the Esophageal Clinic for ineffective esophageal swallowing.Her symptoms have impacted her quality of life. Irritable bowel syndrome with diarrhea predominance has been an ongoing problem. She uses dicyclomine as needed for abdominal cramping, which is helpful. She has diarrhea on a daily basis using Linzess and Amitiza 2 times daily. If she tries to decrease the dose of Amitiza, then she will go without a bowel movement. She has a sense of incomplete emptying and feels bloated.She has been evaluated for ineffective swallowing with our esophageal team, previously on bethanechol and then switched to Mestinon. GI Symptoms or Concerns GI Symptoms or Concerns CHIEF CO MPLAINTFollowup abnormal liver enzymes and likely ilfw-yk-dswdwwal fibrosis.HISTORY OF PRESENT ILLNESSI had the pleasure of seeing Ms. Elizabeth Peñaloza in an established patient consultation. Seen here specifically today for elevations in liver enzymes and concern for fibrosis. She has had issues with dysphagia and slow transit constipation addressed by Dr. Quick and we can direct respectively, I refer to their documentation for these issues. We did discuss these briefly and previous impressions were confirmed. As such, we spent a lot of today discussing her liver enzymes. Of importance, however, for the past 2-3 weeks, the patient has had issues with low blood pressure. In addition to this, she has had dizziness and lightheadedness. She has had times where she has had presyncopal episodes with standing. She has been eating and drinking, and it has been somewhat less than normal, although not significantly. She has not had any recent illnesses and denies fever GI Symptoms or Concerns Elizabeth fulton is a 72-year-old female who is an established patient of our GI practice, who comes in for followup visit regarding gastroesophageal reflux disease and esophageal dysmotility.Elizabeth was last seen in the Esophageal Clinic for telephone consultation on July 07, 2021, by my colleague, SAUL Solano, please see her note from that date for details.Briefly, Elizabeth has a longstanding history of GI symptoms including a diagnosis of gastroparesis, gastroesophageal reflux disease, ineffective esophageal dysmotility. In addition, she also suffers from chronic constipation, fibromyalgia, IgA deficiency, Sjogren's disease, and also has been documented to have hepatic steatosis with the possible fibrosis.At this point, she does follow up in the [facility] with my colleague, Sadie Santana NP, for management of her chronic constipation as well as gastroparesis, and is scheduled for a followup appointment coming up next month. She was actually last seen in GI Symptoms or Concerns Elizabeth fulton is a 71-year-old female, who is present today with her son, Rogerio, to discuss symptoms on esophageal dysmotility, GERD, gastroparesis, irritable bowel syndrome with constipation, abnormal liver function testing, and nausea.She is very frustrated over her symptoms and the impact that they have on her life. She follows in our Hepatology Clinic with Dr. Az Chaudhari for abnormal liver function tests and with Sadie Bojorquez for esophageal dysmotility and GERD management. She follows with me in the clinic for management of irritable bowel syndrome, constipation predominant and gastroparesis. She has chronic nausea as well.Her constipation has been very difficult to manage, her current bowel regimen is Linzess 290 mcg daily and Amitiza 24 mcg 2 times daily. She reports with this regimen, she will have bowel movements that are urgent and loose with frequent trips to the bathroom over a couple of hour period before she completes a defecation. She will skip her m GI Symptoms or Concerns Elizabeth fulton is a 71-year-old female who is present today via virtual visit. She has verified her date and address consented to this visit. In a private location, able to conduct this visit privately. Twenty-five minutes were spent on this encounter. She follows with me in the clinic for management of irritable bowel syndrome, constipation predominant, and intermittent nausea. She is followed in the Esophageal Clinic for gastroesophageal reflux disease and esophageal dysmotility on bethanechol. She follows in our Liver Clinic for fatty liver management.She carries a history of gastroparesis diagnosed with gastric emptying study that showed a 4-hour retention of 20%, gastroesophageal reflux disease, ineffective esophageal motility, fibromyalgia, IgA deficiency, Sjogren's disease, hepatic steatosis, anxiety and depression, which is poorly controlled. She was having difficulties with weight loss secondary to poor mental health management. On 01/04/2020, she weighed 1 GI Symptoms or Concerns CHIEF CO MPLAINTFollowup metabolic associated liver disease.I had the pleasure of seeing Ms. Elizabeth Peñaloza along with her son in established patient consultation. She is referred to our clinic from Sadie Bojorquez PA-C, for evaluation of elevation in liver enzymes and concerned for fatty liver disease. Ms. Peñaloza is a 71-year-old female with complex past medical history who has a longstanding diagnosis of metabolic associated liver disease. She states she had a liver biopsy performed in 2017 for elevations in liver enzymes. Also noted in her history was heterozygosity for gepny-[id number] with MZ phenotype and a low level of [id number] and the serum at 69. She has had stable elevations in liver enzymes far back as 2013. She has had a serologic workup for other forms of liver disease that are similarly unremarkable. Her last liver biopsy again approximately 5 years ago showed steatohepatitis with moderate steatosis and actually minimal necroinflammatory acti GI Symptoms or Concerns This is a very pleasant 71-year-old female who I am seeing today via televisit. She has a history of abdominal pain, nausea, constipation, gastroparesis, gastroesophageal reflux disease, ineffective esophageal motility, fibromyalgia, IgA deficiency, Sjogren''s disease, hepatic steatosis with possible fibrosis, anxiety, depression, and aspiration pneumonia related to GERD. She follows in [facility] Clinic with regards to the constipation and gastroparesis. She just had a colonoscopy on January 04, 2020 that showed 2 hyperplastic polyps.Today, I am seeing her in esophageal clinic because of continued difficulty swallowing liquids and pills. Solids are typically not problematic. She is taking omeprazole 40 mg twice daily and is doing well from a heartburn standpoint. She had a Najera pH study in 2019 that showed a DeMeester score of 56 and 16% acid exposure time. High resolution manometry in 2019 showed ineffective esophageal motility. I started her on bethanechol 25mg BID but she didn't think she's noticed a difference. She tried increasing to 50mg BID but didn't notice any improvement. Mestinon was then tried at 60mg TID which has helped a little, no side effects. We tried up to 120mg TID but she got jittery so she has settled on 120mg BID.She is overall doing well with her swallowing. There are minor problems with pills and liquids but it's manageable and she feels like she's settled on an appropriate dose. There's no abd pain and no n/v. GI Symptoms or Concerns Elizabeth fulton is a 70-year-old female who is present today for telephone consult. She has verified her date, address, consented to this visit, in a private location, able to conduct this visit safely. She follows up today with me for ongoing management of IBS-C and intermittent nausea. She is followed in our Esophageal Clinic for gastroesophageal reflux disease and esophageal dysmotility. She is followed in our Liver Clinic for fatty liver. She carries a history of gastroparesis diagnosed with gastric emptying study that showed a 4-hour retention of 20%, gastroesophageal reflux disease, ineffective esophageal motility, fibromyalgia, IgA deficiency, Sjogren's disease, hepatic steatosis, and possibly fibrosis. Her history also includes anxiety and depression, which is poorly controlled.Her constipation is currently managed with Linzess 290 mcg and Amitiza 24 mcg 2 times daily. She finds that MiraLax is not beneficial for stimulating larger bowel movements. She has go Comment Elizabeth Peñaloza i s a 70-year-old female who is present today for a telephone consult for ongoing management of symptoms most consistent with constipation-predominant irritable bowel syndrome and intermittent nausea. She is followed in our Esophageal Clinic for gastroesophageal reflux disease and esophageal dysmotility. She is also followed in our Liver Clinic for fatty liver. She carries a history of gastroparesis diagnosed with a gastric emptying study with a 4-hour retention of 20%, gastroesophageal reflux disease, ineffective esophageal motility, fibromyalgia, IgA deficiency, Sjogren's disease, hepatic steatosis and possibly fibrosis, anxiety and depression which she reports are poorly controlled.She has verified her birthday and address and has consented to this visit.She feels her constipation, bloating, and nausea symptoms are fairly well controlled at this time. She is having 2 to 3 soft mushy stools per day. She takes dicyclomine in the morning and does not niles GI Symptoms or Concerns This is a 70-year-old female who I am seeing today via televisit. She has a history of abdominal pain, nausea, constipation, gastroparesis, gastroesophageal reflux disease, ineffective esophageal motility, fibromyalgia, IgA deficiency, Sjogren''s disease, hepatic steatosis with possible fibrosis, anxiety, depression, and aspiration pneumonia related to GERD. She follows in [facility] with regards to the constipation and gastroparesis. She just had a colonoscopy on January 04, 2020 that showed 2 hyperplastic polyps.Today, I am seeing her in esophageal clinic because of continued difficulty swallowing liquids and pills. Solids are typically not problematic. She is taking omeprazole 40 mg twice daily and is doing well from a heartburn standpoint. She had a Najera pH study in 2019 that showed a DeMeester score of 56 and 16% acid exposure time. High resolution manometry in 2019 showed ineffective esophageal motility. I started her on bethanechol 25mg BID but she didn't think she's noticed a difference. She tried increasing to 50mg BID but didn't notice any improvement. Mestinon was then tried at 60mg TID which has helped a little, no side effects. We tried up to 120mg TID but she got jittery so she has settled on 120mg BID.She is overall doing well with her swallowing. There are minor problems with pills and liquids but it's manageable and she feels like she's settled on an appropriate dose. There's no abd pain and no n/v. GI Symptoms or Concerns This is a 69-year-old female who I am seeing today via televisit. She has a history of abdominal pain, nausea, constipation, gastroparesis, gastroesophageal reflux disease, ineffective esophageal motility, fibromyalgia, IgA deficiency, Sjogren''s disease, hepatic steatosis with possible fibrosis, anxiety, depression, and aspiration pneumonia related to GERD. She follows in [facility] with regards to the constipation and gastroparesis. She just had a colonoscopy on January 04, 2020 that showed 2 hyperplastic polyps.Today, I am seeing her in esophageal clinic because of continued difficulty swallowing liquids and pills. Solids are typically not problematic. She is taking omeprazole 40 mg twice daily and is doing well from a heartburn standpoint. She had a Najera pH study in 2018 that showed a DeMeester score of 56 and 16% acid exposure time. High resolution manometry in 2019 showed ineffective esophageal motility. I started her on bethanechol 25mg BID but she didn't think she's noticed a difference. She tried increasing to 50mg BID but didn't notice any improvement. Mestinon was then tried at 60mg TID which has helped a little, no side effects. Comment Elizabeth Peñaloza i s a 69-year-old female who is present today via a telephone consult for ongoing management of symptoms most consistent with constipation predominant irritable bowel syndrome and intermittent nausea. She carries a history of gastroparesis diagnosed with a gastric emptying study 4 hour retention of 20%, gastroesophageal reflux disease, ineffective esophageal motility, followed by our esophageal team, fibromyalgia, IgA deficiency, Sjogren's disease, hepatic steatosis and possibly fibrosis followed by our Hepatology team, anxiety, depression, and aspiration pneumonia related to GERD. She has been seen in our Motility Clinic in the past and presents to the general GI Clinic today. She has verified her date and address and has consented to this visit.She was reporting migratory abdominal pain and ongoing incidence of bowel irregularity when I saw her in the clinic in January. She was placed on Benefiber and dicyclomine. She presents today reporting that Comment The patient is a very pleasant 69-year-old woman whom I had a telephone visit with today for her history of fatty liver and elevated liver tests.Of note, the patient also follows in our GI Motility Clinic as well as our Esophageal Clinic for problems with ongoing abdominal pain and dysphagia.The patient's past medical history includes Sjogren's syndrome, selective IgA immunodeficiency, osteoarthritis, depression, esophageal dysmotility, and diabetes.Over the years, she has been seen by our Liver Clinic several times for elevation in liver tests. She has undergone 3 total liver biopsies and the 1st two never showed specific cause. It was thought her liver tests at that time could be elevated due to trazodone. However, her most recent liver biopsy was completed in November 2016. That biopsy did show steatohepatitis with minimal inflammatory activity grade 0 to 1/3 and no sign of fibrosis stage 0/4.The patient has been told she is prediabetic and says diabetes runs GI Symptoms or Concerns This is a 69-year-old female who I am seeing today via tele visit. She has a history of abdominal pain, nausea, constipation, gastroparesis, gastroesophageal reflux disease, ineffective esophageal motility, fibromyalgia, IgA deficiency, Sjogren''s disease, hepatic steatosis with possible fibrosis, anxiety, depression, and aspiration pneumonia related to GERD. She follows in [facility] Clinic with regards to the constipation and gastroparesis. She just had a colonoscopy on January 04, 2020 that showed 2 hyperplastic polyps.Today, I am seeing her in esophageal clinic because of continued difficulty swallowing liquids and pills. Solids are typically not problematic. She is taking omeprazole 40 mg twice daily and is doing well from a heartburn standpoint. She had a Najera pH study in 2019 that showed a DeMeester score of 56 and 16% acid exposure time. High resolution manometry in 2019 showed ineffective esophageal motility. I started her on bethanechol 25mg BID but she doesn't think she's noticed a difference. She tried increasing to 50mg BID, although only for 2 weeks, but didn't notice any improvement. GI Symptoms or Concerns This is a 69-year-old female who I am seeing today via tele visit. She has a history of abdominal pain, nausea, constipation, gastroparesis, gastroesophageal reflux disease, ineffective esophageal motility, fibromyalgia, IgA deficiency, Sjogren''s disease, hepatic steatosis with possible fibrosis, anxiety, depression, and aspiration pneumonia related to GERD. She follows in [facility] with regards to the constipation and gastroparesis. She just had a colonoscopy on January 04, 2020 that showed 2 hyperplastic polyps.Today, I am seeing her in esophageal clinic because of continued difficulty swallowing liquids and pills. Solids are typically not problematic. She is taking omeprazole 40 mg twice daily and still occasionally has heartburn and nausea. There is no vomiting. She has had hiccups lately and her voice has been more hoarse, along with cough. She had a Najera pH study in 2019 that showed a DeMeester score of 56 and 16% acid exposure time. High resolution manometry in 2019 showed ineffective esophageal motility. I started her on bethanechol 25mg BID but she doesn't think she's noticed a difference. Comment Elizabeth Peñaloza i s a 69-year-old female, who was present today for a telephone consult. She is alone and has consented to this visit. She is following up for symptoms of constipation predominant irritable bowel syndrome, nausea and carries a diagnosis of constipation. She also follows in our Esophageal Clinic for dysplasia and our Hepatology Clinic for fatty liver. She carries a history of fibromyalgia, IgA deficiency, Sjogren's disease. Her anxiety and depression is managed on clonazepam and Wellbutrin. She also has hypothyroidism managed on levothyroxine.She was last seen in the clinic the middle of November. At that time, she was given instructions for a GoLYTELY bowel cleanse and to start Linzess at 290 mcg daily. She is currently on Linzess 290 mcg in addition to Amitiza 24 mcg 2 times per day. She reports the consistency of the stool is from loose to watery 2 times per day with a sense of complete defecation. She does report sometimes she has urgent stools. She describ Comment This is a 69-yea r-old female who I am seeing today via tele visit. She has a history of abdominal pain, nausea, constipation, gastroparesis, gastroesophageal reflux disease, ineffective esophageal motility, fibromyalgia, IgA deficiency, Sjogren''s disease, hepatic steatosis with possible fibrosis, anxiety, depression, and aspiration pneumonia related to GERD. She follows in [facility]ility Clinic with regards to the constipation and gastroparesis.Today, I am seeing her in esophageal clinic because of continued difficulty swallowing liquids and pills. Solids are typically not problematic. She is taking omeprazole 40 mg twice daily and still occasionally has heartburn and nausea. There is no vomiting. She has had hiccups lately and her voice has been more hoarse, along with cough. She had a Najera pH study in 2019 that showed a DeMeester score of 56 and 16% acid exposure time. High resolution manometry in 2019 showed ineffective esophageal motility.In addition to this, she does GI Symptoms or Concerns Telemedi cine visit held via a telephone call. Verbal consent was obtained prior to the visit. Visit attended by the patient and the physician. Total time spent in medical discussion was 15 minutes.A 69-year-old female with extensive medical history including fibromyalgia, IgA deficiency, Sjogrens disease, hepatic steatosis, mood/anxiety disorder, chronic constipation, prior history of aspiration pneumonia, gastroesophageal reflux disease, and esophageal dysphagia secondary to ineffective esophageal motility with telemedicine visit today for evaluation of elevated liver chemistry.Patient usually followed by various [facility] providers in gastroparesis and esophageal clinics for ongoing GI symptoms. She also carries prior history of elevated liver chemistry at least since 2012. Extensive prior work up for chronic liver disease notable for positive GUSTAVO and A1AT phenotype of MZ. Liver biopsy in 2017 with moderate steatosis and negative for fibrosis - stage 0. MR elastography in 2017 with diffuse hepatic steatosis with possible early stages of fibrosis. Patient with persistent mild elevation of AST and ALT in 40-50 range until recent blood work with AST 76 and ALT 83 with normal ALP 102 and T.Bili 0.3. Normal CBC and PT/INR. Patient without any current or prior history of clinical liver decompensation. Denies jaundice, overt GI bleeding, or confusion. Notes mild lower extremity swelling that resolved after initiation of hydrochlorothiazide by primary care provider. Prior EGD in 07/2018 with hiatal hernia but no evidence of varices. No history of ascites on prior imaging.Regarding chronic constipation, patient currently on Linzess once daily in the morning along with Amitiza twice daily. Reports bowel habits have improved and currently having twice daily bowel movements. Stools loose but not watery. No overt GI bleeding. Over the past few days, patient also reports a small amount of stool passage with every episode of urination. Separately patient reports chronic upper abdominal pressure has improved but not resolved. Nausea has also improved and no episode of emesis. Remains on Omeprazole twice daily and Famotidine as needed at night time. No typical heartburn. Has stable history of dysphagia with increased work of swallowing with large bites of food or eating/drinking too fast. Patient has an outpatient colonoscopy scheduled for the next week. Additional Narrative Elizabeth granda is a 69 year old female who is present today for a telephone consult for symptoms of abdominal pain, nausea, constipation. She carries a history of fibromyalgia, IGA deficiency, sjogrens disease, hepatic steatosis with possible fibrosis, anxiety/depression on clonazepam, chronic constipation, aspiration pneumonia related to GERD, esophageal dysphagia with high resolution esophageal manometry consistent with ineffective esophageal motility. She presents today via a telephone consult, she has verified her birthdate and address. She has consented to this visit. She was seen by Dr. Schmidt for dysphagia, increased reflux and aspiration pneumonia 07/2019. Her PPI was increased to 40 mg two times daily. She reports this has helped with the reflux symptoms but she continues to struggle with dysphagia to solids and liquids. She inquires about seeing an esophageal provider at [facility] for further recommendations. She has been following reflux precautions. She has lost about 25 lbs due to GI symptoms over the last few months. EGD 08/11/2018 with findings of gastritis and small HH with normal small bowel and gastric biopsies. She has difficulties with left upper quadrant pain that waxes and wanes, worse after eating, lasting up to three hours. She underwent a gastric emptying study with findings of four hour retention of 20% with normal being less than 10%. She reports nausea every morning, usually improving later in the day. No vomiting. She has an allergy to zofran. She complains of bloating and gas with sense of incomplete defecation despite senna on a daily basis with almost daily bowel movements.She has known history of fatty liver previously evaluated by Dr. Crump with thoughts of autoimmune hepatitis, Alpha 1 anti tripsyn deficiency. But liver biopsy in 2017 confirmed steatosis. She denies alcohol or tobacco. She currently walks one mile per day and eats a low fat diet. She has limited fiber due to her post prandial pain. MRI elastography in 2017 with findings of diffuse hepatic steatosis with elastography findings of steatohepatitis with possible early stages of fibrosis. There was also some concerns of celiac disease but she did not improve on a gluten free diet and eventually small bowel biopsies on gluten were normal.Family history of colon cancer in her Aunt. Colonoscopy normal in 2012. GI Symptoms or Concerns Violeta g [employer] for Ms. Darrell Johnson, consent was obtained over the phone for the televisit. The patient agreed with this and the limitations of it. Total time spent in the televisit was 15 minutes. Reason for calling is reflux, esophageal dysmotility, gastroparesis.A 69-year-old female with history of Sjogren's with oropharyngeal dysphagia as well as significant reflux, who underwent high resolution esophageal manometry test that showed ineffective esophageal motility and significant amount of reflux who has been well controlled on omeprazole 40 mg twice a day. Overall, the patient states that she has been doing really well. Denies any odynophagia and no dysphagia, no regurgitation, no nausea, no vomiting. Occasionally, when she eats quickly, she will feel things go down slowly, but does not have any consistent recurrent reproducible symptoms of dysphagia, odynophagia. She did have a gastric emptying study, which showed mild delay in emptying and overall has been w GI Symptoms or Concerns This is a 68-year-old female with scleroderma who has been having significant gastroesophageal reflux as well as cough for which she has undergone an extensive workup including upper endoscopy, high resolution esophageal manometry as well as Najera studies and esophagram and video swallow studies which showed significant amount of reflux mainly in the recumbent position up to the cervical area with positive Najera and high DeMeester score as well as high-resolution esophageal manometry showing ineffective esophageal motility. She is here to establish care at the [facility]. The patient was significantly worse while doing all this testings as she had to be off the low-dose PPI that she was on. She says that she has had this for several years and has gradually gotten worse. She has symptoms of regurgitation, reflux, burning, backup that leads her to have this cough that she has been having. She denies any melena, hematochezia, or vomiting, no coffee-ground emesis either. O GI Symptoms or Concerns This is a 68-year-old female who comes back in the clinic for a cough and esophageal dysphagia, regurgitation. EGD from 08/11/2018 showed a small hiatal hernia, no esophagitis. She has been on a PPI (omeprazole 40 mg a day), which has helped. She notes that when she bends over she gets free fluid regurgitating upwards. She has had problems with dysphagia to solids occurring intermittently. Video swallowing study done on 12/11/2018 shows mild delayed emptying of the esophagus with intraesophageal reflux. Mild penetration without aspiration. Supine reflux is seen. Prominent passage of a 13 mm barium tablet. They noted that with a chin tuck, this did not achieve full laryngeal closure, did not seem to help much. She has been given some exercises to continue trying at home. Esophageal manometry study just read today shows LES pressure normal at 21.9 mmHg. Resting LES pressure normal at 13.5 mmHg. However, there is ineffective esophageal motility with 60% failed or hypotensive swa GI Symptoms or Concerns GI Symptoms or Concerns This is a 68-year-old female, who comes back in for followup for several issues including cough, altered bowel habits with mainly constipation and choking after swallowing. She had EGD done by me on August 11, 2018. There was a small hiatal hernia, otherwise minimal gastritis seen. Biopsies obtained from the stomach were normal, no H. pylori. Duodenal biopsies did not show any evidence of celiac (there was potential concern regarding this because of a minimally elevated tTG, no symptoms on gluten, please refer to my previous clinic note for further details).The patient reports that she had pneumonia recently. She is unsure why that was. She is IgA deficient. She was on antibiotics and while on antibiotics, reports that her cough got better. The cough has been occurring again. She also relates that she chokes once or twice a week after swallowing. She reports other episodes where she will have an episode of choking or coughing that comes up out of the blue and she has di GI Symptoms or Concerns This is a 68-year-old female who was referred by Dr. Rafal Rodríguez for consultation for a variety of symptoms. Her main issue is coughing. This has apparently been a chronic cough, but it has been worsening. She also has wheezing when she exerts herself. The coughing and also choking can worsen with laughing. When she laughs, this can cause choking. She also reports nocturnal episodes of regurgitation, waking up coughing and choking at that time. She has gained quite a bit of weight, about 35 pounds. Apparently has underactive thyroid, but has been started on thyroid replacement. She has been less active, as well. She notes when she talks she gets hoarse and also short of breath. She states she has bad heartburn. She feels burning coming up. She takes omeprazole 40 mg in the morning and has been on that for a few years. She also takes a lot of Tums. She does not have any esophageal dysphagia. She does cough after drinking liquids and that has been occurring intermittently over GI Symptoms or Concerns This is a 66-year-old female with longstanding issues with her liver, possibly autoimmune liver disease or other etiology. Recently, she has been seen by Dr. Gaona who is helping to investigate this. She had recent MRI with elastography and also repeat liver biopsy. Results are pending. As part of her workup, she had tTG IgG that was slightly elevated at 6 (normal 0 to 5). She has IgA deficiency. She did have EGD by Dr. Refugio Crump in 2003 and duodenal biopsies obtained at that time were normal. There was suspicion of possible celiac because of the IgA deficiency. She has been on a gluten-containing diet for many years. When she got the results of the tTG IgG back in late November, she was told to be on a gluten-free diet. She did somewhat restrict her gluten, but still has not been very good about that and continues on a gluten-containing diet for the most part. She does not have diarrhea. In fact, she is usually constipated and takes senna for that (MiraLax does not help GI Symptoms or Concerns Ms. Jaspreet granda is a pleasant 66-year-old woman who presents for followup to elevated liver enzymes AST/ALT x1-2 ULN. She has been seen by Dr. Refugio Crump for many years, and more recently was seen by [facility]. She has undergone two liver biopsies in the past. These have revealed mild lobular hepatitis, but without specific cause. At one point, the biopsy revealed that trazodone as an issue. This was discontinued with no major improvement in LFTs. She continues to have abnormal AST and ALT x1-2 ULN. 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 Antinuclear antibodies were also noted to be positive, but without a ratio given. SMA negative. The patient presents to clinic feeling overall okay at baseline, although she does complain of extreme fatigue. She is up to date on her colonoscopy which was done in 2012 and she is not due for repeat 2022. She reports feeling fatigued all the time. She has not, however, had any issues with jaundice, scleral icterus, abdominal distention, or leg edema. She was seen by rheumatology for what appears to be fibromylagia for which she's currently on prednisone 20 mg daily. The possibilty of treatment with MTX has been raised but no proceeded due to abnormal liver tests. Patient's BMI is 28, and has gained 10 pounds over the past year or so. GI Symptoms or Concerns Ms. Jaspreet granda is a pleasant 65-year-old female who presents to Hepatology Clinic today for followup to elevated liver enzymes. She has been seen by Dr. Refugio Crump for many years, but he is no longer with [facility], so she is now establishing care with a new provider.She has been followed by him last being seen in 2013 for elevated liver enzymes for many years. She has undergone two liver biopsies in the past. These have revealed mild lobular hepatitis, but without specific cause. At one point, the biopsy revealed that trazodone as an issue. This was discontinued. The patient also has a history of an IgA deficiency and is being followed by Immunology for this. Her transaminases continue to fluctuate. 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 Antinuclear antibodies were also noted to be positive, but w Liver Symptoms or Concerns This is a 63-year-old female seen in the accompany of her son on 12/28/2013. She initially presented to me eight or nine years ago to evaluate abnormal liver tests. Workup at that time revealed mild lobular hepatitis on a biopsy, but no specific cause was found. Whether this was related to medication was considered and the only possibility was trazodone. This would be a very uncommon cause of liver abnormalities. She does have other medical issues and is being followed by Dr. Camacho because of her IgA deficiency and is being managed by him for this. The transaminases have fluctuated. However, her liver function as measured by albumin, bilirubin, and INR has remained normal. There is no evidence of hepatitis B or C positive serologies. Other cause of liver disease were negative and her hematology including a platelet count remains normal. She is a carrier. She does have a positive antinuclear antibody, the significance of which is unclear in a female of this age. Her alpha-1 Functional Status Date Functional Assessmen t No Information Instructions Date Instruction Additional Infor alysha 1. Elevation in live r enzymes:Recheck laboratories today.FibroScan in 2-3 years.Continue to avoid alcohol. Keep normal weight and increase physical activity.2. Dizziness, presyncopal, and orthostasis:CBC, BMP, and additional laboratory. She is to seek care either at Urgent Care or clinic and she will need evaluation and improvement of this condition before she could have an upper endoscopy.Follow up with me in 6 months. Related to Elevated liver enzymes 1. She will disconti nue the Mestinon as discussed.2. She should eat small bites and chew her food well as well as drink plenty of water with meals.3. We will be scheduling her for an upper endoscopy for possible esophageal dilation as well as esophageal biopsies as discussed with her.4 She will continue the omeprazole 1 pill twice a day 30 minutes prior to breakfast and dinner. 5. She will use Pepcid or famotidine at bedtime. 6. She can certainly use Reglan or metoclopramide as needed. She will follow up in the clinic with Sadie Santana, nurse practitioner, as well as Dr. Az Chaudhari as scheduled. 7. She will call or e-mail with questions or concerns and will follow up with her primary provider as scheduled. Related to Esophageal dysmotility Gastroesophageal Reflux Disease Related to Gastroesophageal reflux disease, unspecified whether esophagitis present 1. Elevated liver en zymes, suspect steatohepatitis.2. FibroScan with CAP.3. Repeat liver enzymes.4. Up to 4 cups of regular coffee daily.5. Especially if she has evidence of advanced or progressive fibrosis, we did discuss enrolling in a clinical trial for fatty liver disease.6. Follow up with me in 6 months. Related to TAPIA (nonalcoholic steatohepatitis) 1. Continue Mestinon 120 mg b.i.d.2. Continue omeprazole 40 mg b.i.d.3. Follow up in both Motility Clinic and Liver Clinic.4. Follow up in Esophageal Clinic in 1 year. Related to Gastroesophageal reflux disease, unspecified whether esophagitis present Continue Linzess 290 mcg daily Continue Amitiza 24 mcg two times daily Start Benefiber 1 tablespoon one time daily- if still with problems then two times daily Start magnesium 400 mg - 1 to 2 tablets two times daily update me in a couple of weeks, if still with problems then I will start Lactulose 30 ml daily Consider again evaluation through the pelvic center. diet of frequent high protein meals, if needed ensure or boost 1 to 2 bottles per day Related to Irritable bowel syndrome with constipation Continue dicyclomine one time daily - can take up to four times daily as needed for abdominal paincontinue linzess 290 mcg daily continue Amitiza 24 mcg daily continue miralax as neededfollow up in 6 months, contact me if you continue to have problems with potassium levels, we would then need to consider alternative medications for your bowels Related to Irritable bowel syndrome with constipation 1. Continue Mestinon 120 mg b.i.d.2. Continue omeprazole 40 mg b.i.d.3. Follow up in both Motility Clinic and Liver Clinic.4. Follow up in Esophageal Clinic in 1 year. Related to Dysphagia, oropharyngeal phase 1. Increase the Mest inon to 180mg BID2. Continue omeprazole 40 mg b.i.d.3. Follow up in both Motility and Liver Clinic.4. Plan for an appointment in Esophageal Clinic in 2 months. Related to Dysphagia, oropharyngeal phase continue fatty liver management with the hepatology group and esophageal disorder management with Sadie HUGHES. continue dicyclomine two times daily, metoclopramide two times weekly ( black box warnings discussed)continue linzess 290 mcg daily, amitiza 24 mcg two times daily start miralax one capful every day to every other dayincrease fiber to three tabs ( chews) two times daily continue dietary fiber as you are talk to your psychiatrist regarding nortriptyline use for abdominal pain/nausea. Related to Irritable bowel syndrome with constipation 1. Repeat liver test s in about 6 months2. Keep up the good work with walking and diet with goal of weight loss3. If liver tests improved, they can be checked annually Related to Fatty liver 1. Stop the bethanec hol.2. Trial of Mestinon 60 mg t.i.d.3. Continue omeprazole 40 mg b.i.d.4. Follow up in both Motility and Liver Clinic.5. Plan for an appointment in Esophageal Clinic in 2 months. Related to Dysphagia, oropharyngeal phase 1. Continue omeprazo le 40mg twice daily2. Increase bethanechol to 50mg twice daily3. Schedule another televisit with me in one month4. Schedule a televisit with liver clinic to discuss fatty liver Related to Esophageal dysphagia Start benefiber 1 ta blespoon daily start dicyclomine 10 to 20 mg before breakfast every morning then up to four times daily as needed for nausea and bowel urgency. continue metoclopramide as needed for nausea. continue linzess 290 mcg daily and amitiza 24 mcg two times daily Follow up in the hepatology clinic in 6 months as plannedFollow up in the esophageal clinic in one month as planned for ongoing management of dysphagia Related to Constipation, unspecified Gastroparesis Folder Related to Gastroparesis 1. Continue omeprazo le 40mg twice daily2. Start bethanechol 25mg twice daily3. Schedule an appt with our dietician4. Schedule a follow up televisit in 4 weeks Related to Dysphagia, unspecified type Gastroparesis Soft Diet Related to Gastroparesis Gastroparesis Folder Related to Gastroparesis Colon Polyps Related to Color ectal polyps Colon Cancer Prevention Related to Colorectal polyps 1. Abdominal ultraso und for evaluation of elevated liver chemistry. No recent abdominal imaging.2. Repeat liver chemistry every 3 to 6 months.3. No other acute interventions indicated from hepatology standpoint. Given patient without any symptoms of decompensating liver disease. No prior radiologic or laboratory evidence of liver cirrhosis. Liver biopsy in 2017 with steatosis but no fibrosis.4. Continue follow up with other [facility] providers for ongoing and chronic symptoms of slow transit constipation and ineffective esophageal manometry.5. Follow up with me or hepatology clinic for management of NAFLD in 6 months. Related to Abnormal liver chemistry bowel cleanse with g olytely drinking 8 oz every 15 minutes until gonereglan 10 mg before the cleanse then every 6 hours as neededthen start linzess 290 mcg 1/2 hour before breakfast. You will have 3 to 4 BM per day for the first week then daily, if less than this then amitiza 24 mcg two times daily fatty liver of diet, exercisecolonoscopy for family history of colon cancercontinue omeprazole 40 mg two times daily - if sill with reflux problems after the bowel regulation then will add famotidine at bedtime. for ongoing symptoms I would review a gastroparesis diet. Related to Nausea Dyspepsia Related to Nause a fatty liver Related to Nause a reflux disease Related to Nause a Lifestyle education regarding di et Related to Dietary counseling and surveillance Lifestyle education regarding di et Related to Dietary counseling and surveillance 1. Check video swall ow study.2. Set up Najera study (off acid victorino medications).3. Try increasing Miralx to 1 1/2 capfuls each morning. Related to Cough Gastritis Related to Gastr itis without bleeding, unspecified chronicity, unspecified gastritis type Hiatal Hernia Related to Hiata l hernia At this point, we wi ll set up an upper endoscopy to assess her cough, see if she has evidence of reflux, has a hiatal hernia. We will get small bowel biopsies to look for possible celiac, if that is positive then a comprehensive celiac panel. We will try flushing out her colon with MiraLax-Gatorade prep and then after that continue on MiraLax daily. She should stop the Tums. If she is having ongoing heartburn, reflux-type symptoms, we may need to change the timing of the medication, use something else, etc. I will set up a followup appointment in clinic. Related to Heartburn Lifestyle education regarding di et Related to Dietary counseling and surveillance Constipation Bowel Cleanse (Adul t) Related to Unspecified constipation 1. Check labs today. 2. Resume gluten. Set up EGD for ~3 weeks w/ SB biopsies.3. F/U in celiac clinic to discuss results. Related to Abnormal laboratory test Lifestyle education regarding di et Related to Dietary counseling and surveillance Lifestyle education regarding di et Related to Dietary counseling and surveillance MRI Elastography WIT HOUT And WITH Contrast Ms. Peñaloza presents to clinic today for followup to elevated liver enzymes. Her liver enzymes have continued to fluctuate over the past several years, but biopsy has never revealed any cause. Her son does have fatty liver and was also present today and it is possible that she has some degree, even though this has not been noted on biopsy.Last year, it was recommended that she have a FibroScan for further evaluation to see if there is any fibrosis and she deferred. I did discuss MR elastography with her and she will be willing as long as her insurance covers this. We would have to check.I asked her today we will check labs to include iron studies, TSH, vitamin B12, and vitamin D. INR will be ordered as well and liver functions will be repeated. Depending on those results, I may suggest MR elastography, although not clear. I will update her once I have the labs available to me. Related to Elevated liver enzymes Lifestyle education regarding di et Related to Dietary counseling and surveillance Assessments Type Assessment Date No Information Patient Care Teams Name Effective Dates (start - stop) Status Members No Information
--- OUTSIDE RECORDS SUMMARY | 2023-10-06 16:19 | XMS_ITS | Continuity of Care Document ---
Author Organization [facility] Address [address] [place] [address] Phone Care Team Providers Care Trade Specialist Name Role Phone Ryan Goldberg MD Unavailable Unavailable Advance Directives Directive Yes / No Effective Date File Name No Information Encounters Encounter Description Practice Location Reason(s) For Visit Diagnoses Date Provider Providers Copied on Encounter [facility], [address], [place], [address], [place] tel:[phone] [facility], No Information Jun-2 2-201 3 Ashlyn Davis. [facility] [address], [place], [address], [place]. tel:[phone] Family History Family Member Type Diagnosis Age At Onset No Information Payers Payer name Insurance type Covered constitution party ID Authoriza tion(s) No Information Social History [...]
--- OUTSIDE RECORDS SUMMARY | 2023-10-06 16:19 | XMS_ITS | Referral Summary ---
Author Organization [facility] Address [address] [place] [address]. [place] [address] Care Team Providers Care Assistance Representative Name Role Phone Rafal Rodríguez MD Primary Care Provider [phone] Allergies Active Allergy Reactions Criticality Noted Date [...] 61.7 kg (136 lb) 05/22/2023 12:54 PM CLOTH TEARER Height 160 cm (5' 3) 12/31/2022 3:04 PM CDT Body Mass Index 24.09 12/31/2022 3:04 PM CDT Plan of Treatment Not on file Procedures Procedure Name Priority Date/Time Associated Diagnosis Comments MA SCREENING BILATERAL W/ PHILLY Routine 02/04/2023 1:18 PM CDT COMPREHENSIVE METABOLIC PANEL STAT 12/31/2022 4:12 PM CDT TSH WITH FREE T4 REFLEX STAT 06/13/2020 2:39 PM CLOTH TEARER Prolonged QT interval from Last 3 Months or Most Recently Relevant to Health Maintenance Results * (ABNORMAL) Comprehensive metabolic panel (12/31/2022 4:12 PM CDT) Sodium 145 136 - 145 mmol/L 12/31/2022 4:47 PM [facility] Potassium 3.8 3.4 - 5.3 mmol/L 12/31/2022 4:47 PM [facility] Chloride 111(H) 98 - 107 mmol/L 12/31/2022 4:47 PM [facility] Carbon Dioxide (CO2) 25 22 - 29 mmol/L 12/31/2022 4:47 PM [facility] Anion Gap 9 7 - 15 mmol/L 12/31/2022 4:47 PM [facility] Urea Nitrogen 7.5(L) 8.0 - 23.0 mg/dL 12/31/2022 4:47 PM [facility] Creatinine 1.09(H) 0.51 - 0.95 mg/dL 12/31/2022 4:47 PM [facility] Calcium 9.6 8.8 - 10.2 mg/dL 12/31/2022 4:47 PM [facility] Glucose 83 70 - 99 mg/dL 12/31/2022 4:47 PM [facility] Alkaline Phosphatase 70 35 - 104 U/L 12/31/2022 4:47 PM [facility] AST 27 0 - 45 U/L 12/31/2022 4:47 PM [facility] Comment:Reference intervals for this test were updated on 09/24/2022 to more accurately reflect our healthy population. There may be differences in the flagging of prior results with similar values performed with this method. Interpretation of those prior results can be made in the context of the updated reference intervals. ALT 12 0 - 50 U/L 12/31/2022 4:47 PM [facility] Comment:Reference intervals for this test were updated on 09/24/2022 to more accurately reflect our healthy population. There may be differences in the flagging of prior results with similar values performed with this method. Interpretation of those prior results can be made in the context of the updated reference intervals. Protein Total 7.1 6.4 - 8.3 g/dL 12/31/2022 4:47 PM CDT [facility] Albumin 4.6 3.5 - 5.2 g/dL 12/31/2022 4:47 PM T [facility] Bilirubin Total 0.3 <=1.2 mg/dL 12/31/2022 4:47 PM T [facility] GFR Estimate 54(L) >60 mL/min/1. 73m2 12/31/2022 4:47 PM CDT [facility] Blood VENOUS LINE / Unknown Venipuncture / Unknown 12/31/2022 4:12 PM CDT 12/31/2022 4:15 PM CDT Natacha De Oliveira MD LAB - BLOOD ORDERABL ES Performing Organization Address City/[facility]/ZIP Co de Phone Number [facility] [address] [phone] * TSH with free T4 reflex (06/13/2020 2:39 PM CLOTH TEARER) TSH 0.46 0.40 - 4.00 mU/L 06/13/2020 3:[address] [facility] Blood specimen (specimen) 06/13/2020 2:39 PM CLOTH TEARER 06/13/2020 3:06 PM CLOTH TEARER Rivera Allen MD LAB - BLOOD ORDERABL ES Performing Organization Address City/[facility]/ZIP Co de Phone Number [facility] [address] [place] [address], [facility] [phone] from Last 3 Months or Most Recently Relevant to Health Maintenance Advance Directives For more information, please contact: [phone] Documents on File Type Date Recorded Patient Media Associate Expl anation Advance Directives and Living Will 06/30/2020 11:38 AM Invalid Directive datred 04-27-19 received * Full Code (Latest Code Status on File) Date Activated Date Inactivated Comments 06/14/2020 12:02 PM 12/31/2022 2:58 PM Question Answer Comments Code status determined by: Discussion with sen nt/ legal decision maker * Full Code Date Activated Date Inactivated Comments 06/13/2020 7:35 PM 06/14/2020 12:02 PM All basic and advanced life-sustaining interventions are performed as appropriate Question Answer Comments Code status determined by: Discussion with sen nt/ legal decision maker Care Teams Assistance Representative Relationship Specialty Start Date End Date Rafal Rodríguez MD PCP - General 10/26/18
--- OUTSIDE RECORDS SUMMARY | 2023-10-06 16:20 | XMS_ITS | Continuity of Care Document ---
Author Organization [facility] Address [address] [place] [address] Phone Care Team Providers Care Fruit Worker Name Role Phone Fred Larkin Unavailable Unavailable Allergies, Adverse Reactions, Alerts Substance Reaction Status Criticality amitriptyline Active No Information nitrofurantoin Active No Informatio n duloxetine Active No Information codeine Active No Information Medications Medication Instructions Dosage Effective Dates (start - stop) Status Comments TIZANIDINE HCL (unknown strength) Not Available - Active EXCEDRIN MIGRAINE (unknown strength) Not Available - Active VITAMIN D3 (unknown strength) Not Available - Active CLONAZEPAM (unknown strength) Not Available - Active LEVOTHYROXINE SODIUM (unknown strength) Not Available - Active OMEPRAZOLE (unknown strength) Not Available - Active TOPIRAMATE (unknown strength) Not Available - Active VALTREX (unknown strength) Not Available - Active ZOMIG (unknown strength) Not Available - Active Procedures Procedure Date Office/Outpatient Visit,Est, Mod 2018 Office/Outpatient Visit,New, Mod 2018 Advance Directives Directive Yes / No Effective Date File Name No Information Encounters Encounter Description Practice Location Reason(s) For Visit Diagnoses Date Provider Providers Copied on Encounter [facility], [address], [place], [id number], [place] tel:[phone] [facility] No Information 9 Julio Ibarra. [facility], [address], [place], [id number] , [place]. [phone] Office/Outpat ient Visit,Est, Mod [facility], [address], [place], [id number], [place] tel:[phone] [facility] Other spondylosis, cervical region 9 Julio Ibarra. [facility], [address], [place], [place], [id number] , . [phone] Referring Provider: [facility] [address], [place], [address]. tel:[phone] Office/Outpat ient Visit,New, Mod [facility], [address], [place], [place], [id number], tel:[phone] [facility] Other spondylosis, cervical region 9 Julio Ibarra. [facility], [address], [place], [place], [id number] , [place]. [phone] Referring Provider: [facility] [address], [place], [address]. tel:[phone] Family History Family Member Type Diagnosis Age At Onset No Information Payers Payer name Insurance type Covered alliance party ID Authoriza tion(s) No Information Social [...]
--- OUTSIDE RECORDS SUMMARY | 2023-10-06 16:20 | XMS_ITS | Continuity of Care Document ---
Author Organization [facility] Address [address] [address] [place] [address] Phone Care Team Providers Care Chronic Care Nurse Name Role Phone Esther MCGINNIS, Sadie Unavailable [...] Diagnoses Date Provider Providers Copied on Encounter [facility], [address] [address], [place], [place], [id number], [place] tel:[phone] [facility] No Information 4 Esther Noel. [address], [id number], [place]. tel:[phone] Offic/outpt E&m Estab Mod-nd 4 [facility], [address] [address], [place], [place], [id number], [place] tel:[phone] [facility] GI Symptoms or Concerns (chief complaint) Irritable bowel syndrome with constipationG astroparesisG astroesophage al reflux disease, unspecified whether esophagitis presentNausea 4 Esther Noel. 3001 [facility] [address], [place], [address], [place]. tel:[phone] Tameka Barrow NP. tel:[phone] erring Provider: Referral Self, USE FOR SELF REFERRALS. [facility], [address] [address], [place], [address], [place] tel:[phone] [facility] BloatingDiarr hea, unspecified Ian-0 4 Esther Noel. [address]001 [facility], [facility] [address], [place], [place], [address], [place]. tel:[phone] [facility], [address] [address], [place], [address], [place] tel:[phone] [place] [address] No Information 4 [facility] Catia. [address] [place] [address], [id number], [place]. tel:[phone] [facility], [address] [address], [place], [address], [place] tel:[phone] [place] [address] No Information 4 Esther Noel. [address] [place] [address], [id number], [place]. tel:[phone] Established Level 5 [facility], [address] [address], [place], [address], [place] tel:[phone] [place] [address] GI Symptoms or Concerns (chief complaint) Irritable bowel syndrome with constipationG astroparesisB loating Apr-2 4 Esther Noel. [address] [place] [address], [id number], [place]. tel:[phone] Tameka Barrow NP. tel:[phone] erring Provider: Referral Self, USE FOR SELF REFERRALS. [facility], [address] [address], [place], [address], [place] tel:[phone] [facility] Gallstones Fe- 4 Esther Noel. [address]001 [facility], [address], [id number], [place]. tel:[phone] [facility], [address] [address], [place], [id number], [place] tel:[phone] [facility] No Information 4 Jairo Casiano. [address] [place] [address], [id number], [place]. tel:[phone] Offic/outpt E&m Estab Mod-hi 4 [facility], [address] [address], [place], [id number], [place] tel:[phone] [facility] GI Symptoms or Concerns (chief complaint) NauseaGastrop aresisIrritab le bowel syndrome with constipationC onstipation, unspecified constipation typeVitamin D deficiencyVit eric B12 deficiencySlo w transit constipationB loating 4 Jairo Casiano. [address] [place] [address], [id number], [place]. tel:[phone] Tameka Barrow NP. tel:[phone] erring Provider: Referral Self, USE FOR SELF REFERRALS. [facility], [address] [address], [place], [id number], [place] tel:[phone] [facility] Right upper quadrant pain 4 Esther Noel. [facility] [address], [id number], [place]. tel:[phone] [facility], [address] [address], [place], [id number], [place] tel:[phone] [place] [address] No Information 3 Esther Noel. [address] [place] [address], [id number], [place]. tel:[phone] Offic/outpt E&m Estab Mod-hi 4 [facility], [address] [address], [place], [id number], [place] tel:[phone] [facility] GI Symptoms or Concerns (chief complaint) Gastroesophag eal reflux disease, unspecified whether esophagitis presentBloati ngIrritable bowel syndrome with constipationE pigastric painGastropar esis 3 Esther Noel. [address] [place] [address], [id number], [place]. tel:[phone] Tameka Barrow NP. tel:[phone] erring Provider: Referral Self, USE FOR SELF REFERRALS. [facility], [address] [address], [place], [address], [place] tel:[phone] [facility] No Information 3 Esther Noel. [address] [place] [address], [id number], [place]. tel:[phone] Established Level 5 [facility], [address] [address], [place], [address], [place] tel:[phone] [facility] GI Symptoms or Concerns (chief complaint) Esophageal dysphagiaIrri table bowel syndrome with constipationG astroesophage al reflux disease, unspecified whether esophagitis presentGastro paresis 3 Esther Noel. [address] [place] [address], [id number], [place]. tel:[phone] Tameka Barrow NP. tel:[phone] erring Provider: Referral Self, USE FOR SELF REFERRALS. [facility], [address] [address], [place], [address], [place] tel:[phone] [facility] GI Symptoms or Concerns (chief complaint) Esophageal dysphagiaOthe r dysphagia 3 Franklyn Briceno. [address] [place] [address], [id number], [place]. tel:[phone] Tameka Barrwo NP. tel:[phone] sulting Provider: Alberto Quick MD, [address] [place] [address], [place], [address]. tel:[phone] erring Provider: Referral Self, USE FOR SELF REFERRALS. Offic/outpt E&m Estab Low-mod [facility], [address] [address], [place], [id number], [place] tel:[phone] [facility] GI Symptoms or Concerns (chief complaint) Elevated liver enzymes August-0 3 Fara Bernardo. [address], [id number], [place]. tel:[phone] Tameka Barrow NP. tel:[phone] erring Provider: Referral Self, USE FOR SELF REFERRALS. Offic/outpt E&m Estab Mod-hi 2 [facility], [address] [address], [place], [id number], [place] tel:[phone] [facility] GI Symptoms or Concerns (chief complaint) Esophageal dysmotilityGa stroesophagea l reflux disease, unspecified whether esophagitis present 3 Abdelrahman Dominguez. [address] [address], [place], [address], [place]. tel:[phone] Tameka Barrow NP. tel:[phone] erring Provider: Referral Self, USE FOR SELF REFERRALS. [facility], [address] [address], [place], [id number], [place] tel:[phone] [facility] No Information 3 Esther Noel. [address] [address], [place], [place], [address], [place]. tel:[phone] Offic/outpt E&m Estab Mod-hi 4 [facility], [address] [address], [place], [address], [place] tel:[phone] [facility] GI Symptoms or Concerns (chief complaint) Gastroesophag eal reflux disease, unspecified whether esophagitis presentEsopha geal dysmotilityAb normal liver function testIrritable bowel syndrome with constipationN ausea Apr- 3 Esther Noel. [address], [id number], [place]. tel:[phone] Tameka Barrow NP. tel:[phone] erring Provider: Referral Self, USE FOR SELF REFERRALS. [facility], [address] [address], [place], [address], [place] tel:[phone] [facility] No Information 3 Esther Noel. [address], [id number], [place]. tel:[phone] [facility], [address] [address], [place], [address], [place] tel:[phone] [facility] Constipation, unspecified constipation type 2 Esther Noel. [address] [place] [address], [id number], [place]. tel:[phone] Referring Provider: Referral Self, USE FOR SELF REFERRALS. Established Level 4 [facility], [address] [address], [place], [address], [place] tel:[phone] [facility] GI Symptoms or Concerns (chief complaint) Irritable bowel syndrome with constipationS low transit constipationN ausea 2 Esther Noel. [facility] [address], [id number], [place]. tel:[phone] Tameka Barrow NP. tel:[phone] erring Provider: Referral Self, USE FOR SELF REFERRALS. [facility], [address] [address], [place], [address], [place] tel:[phone] [facility] Fatty (change of) liver, not elsewhere classified 2 Fara Bernardo. [address], [id number], [place]. tel:[phone] Tameka Barrow NP. tel:[phone] erring Provider: Referral Self, USE FOR SELF REFERRALS. Offic/outpt E&m Estab Low-mod [facility], [address] [address], [place], [address], [place] tel:[phone] [facility] GI Symptoms or Concerns (chief complaint) TAPIA (nonalcoholic steatohepatit is) 2 Fara Bernardo. 3001 [facility], [address], [id number], [place]. tel:[phone] Tameka Barrow NP. tel:[phone] erring Provider: Referral Self, USE FOR SELF REFERRALS. [facility], [address] [address], [place], [address], [place] tel:[phone] [facility] No Information 2 Kendell Arodn. [address], [id number], [place]. tel:[phone] Established Level 3 [facility], [address] [address], [place], [address], [place] tel:[phone] [facility] GI Symptoms or Concerns (chief complaint) Elevated liver enzymesGastro esophageal reflux disease, unspecified whether esophagitis present 2 Maryellen Noel. [facility] [address], [id number], [place]. tel:[phone] Tameka Barrow NP. tel:[phone] erring Provider: Rafal Rodríguez MD L, [address], [place], [address]. tel:[phone] Established Level 4 [facility], [address] [address], [place] [facility], [address], [place] tel:[phone] [facility] GI Symptoms or Concerns (chief complaint) Irritable bowel syndrome with constipationN auseaBloating Weight loss 1 Esther Noel. [address], [id number], [place]. tel:[phone] Barrow NP. tel:[phone] erring Provider: Referral Self, USE FOR SELF REFERRALS. [facility], [address] [address], [place], [id number], [place] tel:[phone] [facility] No Information 1 Maryellen Noel. [address] [facility], [facility] [address], [place], [place], [address], [place]. tel:[phone] Offic/outpt E&m Estab Low-mod [facility], [address] [address], [place], [id number], [place] tel:[phone] [facility] Comment (chief complaint) Gastroesophag eal reflux disease, unspecified whether esophagitis presentFatty liverBloating Irritable bowel syndrome with constipation Jul- 1 Esther Noel. [address] [facility], [facility] [address], [place], [address], [place]. tel:[phone] Tameka Barrow NP. tel:[phone] erring Provider: Referral Self, USE FOR SELF REFERRALS. Established Level 3 [facility], [address] [address], [place], [id number], [place] tel:[phone] [facility] GI Symptoms or Concerns (chief complaint) Dysphagia, oropharyngeal phase Jun- 1 Maryellen Noel. [address] [facility], [address], [id number], [place]. tel:[phone] Tameka Barrow NP. tel:[phone] erring Provider: Referral Self, USE FOR SELF REFERRALS. [facility], [address] [address], [place], [id number], [place] tel:[phone] [facility] No Information 1 Maryellen Noel. [address] [facility], [facility] [address], [place], [address], [place]. tel:[phone] Telephone E&M II 11-20 Min MD ALYSE [facility], [address] [address], [place], [id number], [place] tel:[phone] [facility] GI Symptoms or Concerns (chief complaint) Dysphagia, oropharyngeal phase 1 Maryellen Noel. [address], [id number], [place]. tel:[phone] [facility] Tameka Barrow MANAGEMENT INFORMATION SYSTEMS DIRECTOR. tel:[phone] erring Provider: Rafal Darden, [address], [place], [address]. tel:[phone] Established Level 3 [facility], [address] [address], [place], [address], [place] tel:[phone] [facility] Comment (chief complaint) Irritable bowel syndrome with constipationN auseaBloating Fatty liverGastroes ophageal reflux disease, unspecified whether esophagitis present 1 Esther Noel. [address] [place] [address], [id number], [place]. tel:[phone] [facility] Tameka Barrow NP. tel:[phone] erring Provider: Referral Self, USE FOR SELF REFERRALS. Established Level 3 or 15-24 min [facility], [address] [address], [place], [address], [place] tel:[phone] [facility] Comment (chief complaint) Fatty liver 0 Tracie Fernando. [address], [id number], [place]. tel:[phone] [facility] Tameka Barrow MANAGEMENT INFORMATION SYSTEMS DIRECTOR. tel:[phone] erring Provider: Rafal Darden, [address], [place], [address]. tel:[phone] Established Level 4 or 25-39 min [facility], [address] [address], [place], [address], [place] tel:[phone] [facility] GI Symptoms or Concerns (chief complaint) Dysphagia, oropharyngeal phase 0 Maryellen Noel. [address] [facility], [place] [address], [place], [address], [place]. tel:[phone] Tameka Barrow NP. tel:[phone] erring Provider: Referral Self, USE FOR SELF REFERRALS. Established Level 4 or 25-39 min [facility], [address] [address], [place], [address], [place] tel:[phone] [facility] GI Symptoms or Concerns (chief complaint) Esophageal dysphagiaFatt y liver Oct-2 0 Maryellen Noel. [address] [facility], [place] [address], [place], [address], [place]. tel:[phone] Tameka Barrow NP. tel:[phone] erring Provider: Rafal Rodríguez MD L, [address], [place], [address]. tel:[phone] [facility], [address] [address], [place], [address], [place] tel:[phone] [facility] No Information Jan- 0 Esther Noel. [address] [facility], [facility] [address], [place], [address], [place]. tel:[phone] Established Level 4 or 25-39 min [facility], [address] [address], [place], [address], [place] tel:[phone] [facility] Comment (chief complaint) Constipation, unspecifiedNa useaIrritable bowel syndrome with constipationD ysphagia, unspecified typeNAFLD (nonalcoholic fatty liver disease) Jan-2 0 Esther Noel. [address] [facility], [facility] [address], [place], [address], [place]. tel:[phone] Tameka Barrow NP. tel:[phone] erring Provider: Referral Self, USE FOR SELF REFERRALS. [facility], [address] [address], [place], [address], [place] tel:[phone] [facility] Gastroparesis 0 Jean Longyn. [address] [facility], [address], [id number], [place]. tel:[phone] Tameka Barrow NP. tel:[phone] erring Provider: Rafal Rodríguez MD L, [address], [place], [address]. tel:[phone] Telephone E&M II 11-20 Min ALYSE [facility], [address] [address], [place] [facility], [address], [place] tel:[phone] [facility] Comment (chief complaint) Dysphagia, unspecified typeGastropar esisElevated liver enzymes Dec- 0 Maryellen Noel. [address], [id number], [place]. tel:[phone] Tameka Barrow MANAGEMENT INFORMATION SYSTEMS DIRECTOR. tel:[phone] erring Provider: Referral Self, USE FOR SELF REFERRALS. [facility], [address] [address], [place] [facility], [address], [place] tel:[phone] [facility] Colorectal polypsMelanos is coliUnspecifi ed abdominal painConstipat ion, unspecifiedUn specified abdominal painPolyp of colonConstipa tion, unspecified Dec- 0 Scot Silvestre. [address], [id number], [place]. tel:[phone] Tameka Barrow MANAGEMENT INFORMATION SYSTEMS DIRECTOR. tel:[phone] erring Provider: Referral Self, USE FOR SELF REFERRALS. Established Level 3 or 15-24 min [facility], [address] [address], [place], [address], [place] tel:[phone] [facility] GI Symptoms or Concerns (chief complaint) Abnormal liver chemistryNAFL D (nonalcoholic fatty liver disease) Dec- 0 Karl Swain. [address], [id number], [place]. tel:[phone] Barrow NP. tel:[phone] erring Provider: Referral Self, USE FOR SELF REFERRALS. [facility], [address] [address], [place], [address], [place] tel:[phone] [facility] No Information Dec- 0 Esther Noel. [address] [place] [address], [address], [id number], [place]. tel:[phone] [facility], [address] [address], [place], [id number], [place] tel:[phone] [facility] Abnormal LFTs Dec- 0 Esther Noel. [address] [place] [address], [id number], [place]. tel:[phone] Tameka Barrow NP. tel:[phone] [facility], [address] [address], [place], [address], [place] tel:[phone] [place] [address] Nausea Dec- 0 Esther Noel. [address] [place] [address], [address], [id number], [place]. tel:[phone] Tameka Barrow NP. tel:[phone] erring Provider: Referral Self, USE FOR SELF REFERRALS. Established Level 5 or 40 min [facility], [address] [address], [place], [id number], [place] tel:[phone] [facility] Additional Narrative (chief complaint) NauseaGastroe sophageal reflux disease, esophagitis presence not specifiedDysp hagia, unspecified typeSlow transit constipationS teatosisLeft upper quadrant painFamily history of colon cancer 0 Esther Noel. [address] [facility], [address], [id number], [place]. tel:[phone] Barrow NP. tel:[phone] erring Provider: Referral Self, USE FOR SELF REFERRALS. Telephone E&M II 11-20 Min ALYSE [facility], [address] [address], [place], [id number], [place] tel:[phone] [facility] GI Symptoms or Concerns (chief complaint) Gastroesophag eal reflux disease, esophagitis presence not specifiedEsop hageal dysmotilityGa stroparesis 0 Brayan Aguilar. [address] [facility], [facility] [address], [place], [address], [place]. tel:[phone] Tameka Barrow NP. tel:[phone] erring Provider: Rafal Rodríguez MD L, [address], [place], [address]. tel:[phone] Offic/outpt E&m Estab Mod-hi 2 [facility], [address] [address], [place], [id number], [place] tel:[phone] [facility] GI Symptoms or Concerns (chief complaint) GERD without esophagitisDi etary counseling and surveillanceE ssential (primary) hypertension 9 Brayan Aguilar. [address] [facility], [facility] [address], [place], [address], [place]. tel:[phone] Tameka Barrow NP. tel:[phone] erring Provider: Referral Self, USE FOR SELF REFERRALS. [facility], [address] [address], [place], [id number], [place] tel:[phone] [facility] No Information 9 Leda Chambers. [address] [facility], [facility] [address], [place], [address], [place]. tel:[phone] [facility], [address] [address], [place], [id number], [place] tel:[phone] [facility] Cough 9 Noe Art. [address] [facility], [facility] [address], [place], [address], [place]. tel:[phone] Tameka Barrow NP. tel:[phone] erring Provider: Referral Self, USE FOR SELF REFERRALS. [facility], [address] [address], [place], [address], [place] tel:[phone] [facility] Dysphagia, unspecifiedCo ugh 9 Cindy Ibarra. [address], [id number], [place]. tel:[phone] Tameka Barrow MANAGEMENT INFORMATION SYSTEMS DIRECTOR. tel:[phone] erring Provider: Referral Self, USE FOR SELF REFERRALS. Offic/outpt E&m Estab Mod-hi 2 [facility], [address] [address], [place], [address], [place] tel:[phone] [facility] GI Symptoms or Concerns (chief complaint) HeartburnEsop hageal dysphagiaDiet julianna counseling and surveillance 9 Shaheen Carvalho. [address] [place] [address], [id number], [place]. tel:[phone] Referring Provider: Referral Self, USE FOR SELF REFERRALS. [facility], [address] [address], [place], [address], [place] tel:[phone] [facility] GI Symptoms or Concerns (chief complaint) Dysphagia, oropharyngeal phase 9 Noe Art. [address] [facility], [address], [id number], [place]. tel:[phone] Referring Provider: Rafal Rodríguez MD L, [address], [place], [address]. tel:[phone] [facility], [address] [address], [place], [address], [place] tel:[phone] [facility] Oropharyngeal dysphagia Dec-0 9 Leda Chambers. [address] [facility], [address], [id number], [place]. tel:[phone] [facility], [address] [address], [place], [address], tel:[phone] [facility] CoughOrophary ngeal dysphagia Shaheen Carvalho. [address], [id number], [place]. tel:[phone] Offic/outpt E&m Estab Mod-hi 2 [facility], [address] [address], [place], [place], [address], tel:[phone] [facility] GI Symptoms or Concerns (chief complaint) CoughUnspecif ied constipationO ropharyngeal dysphagia Shaheen Carvalho. [address] [place] [address], [id number], [place]. tel:[phone] Referring Provider: Rafal Rodríguez MD L, [address], [place], [address]. tel:[phone] [facility], [address] [address], [place], [place], [id number], tel:[phone] [facility] Hiatal herniaGastrit is without bleeding, unspecified chronicity, unspecified gastritis typeDiarrhea, unspecifiedOt her specified congenital malformations of stomachGastri tis, unspecified, without bleedingOther specified congenital malformations of stomachDiarrh ea, unspecifiedDi aphragmatic hernia without obstruction or gangrene Shaheen Carvalho. [address] [place] [address], [id number], [place]. tel:[phone] Referring Provider: Referral Self, USE FOR SELF REFERRALS. Offic/outpt E&m Estab Mod-hi 2 [facility], [address] [address], [place], [place], [id number], [place] tel:[phone] [facility] GI Symptoms or Concerns (chief complaint) Dietary counseling and surveillanceE levated blood-pressur e reading, w/o diagnosis of htnHeartburnU nspecified constipationE levated liver enzymesCough 9 Shaheen Carvaloh. [address] [place] [address], [id number], [place]. tel:[phone] Referring Provider: Rafal Rodríguez MD L, [address], [place], [address]. tel:[phone] Offic/outpt E&m Estab Mod-hi 2 [facility], [address] [address], [place], [id number], [place] tel:[phone] [facility] GI Symptoms or Concerns (chief complaint) Abnormal laboratory testDietary counseling and surveillance Shaheen Carvalho. [address] [place] [address], [id number], [place]. tel:[phone] Rick Jerez MD. tel:[phone] erring Provider: Floridalma HILL, [address] [place] [address], [id number]. tel:[phone] [facility], [address] [address], [place], [id number], [place] tel:[phone] [facility] Abnormal LFTs Candelaria Haroahim. [address] [place] [address], [id number], [place]. tel:[phone] Rick Jerez MD. tel:[phone] Offic/outpt E&m Estab Mod-hi 2 [facility], [address] [address], [place], [id number], [place] tel:[phone] [facility] GI Symptoms or Concerns (chief complaint) HepatitisAbno rmal LFTsDietary counseling and surveillance Candelaria Lim. [address] [place] [address], [id number], [place]. tel:[phone] Rick Jerez MD. tel:[phone] erring Provider: Referral Self, USE FOR SELF REFERRALS. [facility], [address] [address], [place], [id number], [place] tel:[phone] [facility] Elevated liver enzymes 7 No Information Offic/outpt E&m Estab Low-mod [facility], [address] [address], [place], [id number], [place] tel:[phone] [facility] GI Symptoms or Concerns (chief complaint) Elevated liver enzymesFatigu e, unspecified typeDietary counseling and surveillanceV itamin D deficiencyVit eric B12 deficiency 6 No Information Rick Jerez MD. tel:[phone] erring Provider: Thai Camacho MD S, [address], [place], [address]. tel:[phone] Offic/outpt E&m Estab Mod-hi 2 [facility], [address] [address], [place], [id number], [place] tel:[phone] [facility] Liver Symptoms or Concerns (chief complaint) Abn Blood Chemistry Nec 4 No Information Rick Jerez MD. tel:[phone] erring Provider: Referral Self, USE FOR SELF REFERRALS. Offic/outpt E&m Estab Mod-hi 2 [facility], [address] [address], [place], [id number], [place] tel:[phone] [facility] Abnormal LFT's (chief complaint) Abn Blood Chemistry Nec 3 No Information Referring Provider: Thai Camacho MD S, [address], [place], [address]. tel:[phone] Offic/outpt E&m Estab Mod-hi 2 [facility], [address] [address], [facility] [place], [id number], [place] tel:[phone] [facility] Abnormal LFT's (chief complaint) Abn Blood Chemistry Nec 3-201 3 No Information Referring Provider: Thai Camacho MD S, [address], [place], [address]. tel:[phone] [facility], [address] [address], [place], [place], [id number], [place] tel:[phone] [facility] Colon Cancer ScreeningProc tosigmoiditis /melanosis ColiColon Cancer ScreeningProc tosigmoiditis /melanosis Coli Mar-2 0 3 Adolfo Stock. [address] [facility], [address], [place], [place], [id number], [place]. tel:[phone] Referring Provider: Thai Camacho MD S, [address], [place], [address]. tel:[phone] Family History Family Member Type Diagnosis Age [...] bi-directional interface ; Source: Other Registry Novel [id number], injectable administered Note: [facility] bi-direct ional interface ; Source: Other Registry tetanus toxoid, reduced diphtheria toxoid, and acellular pertussis vaccine, adsorbed administered Note: [facility] bi-direct ional interface ; Source: Other Registry Influenza, seasonal, injectable administe red Note: [facility] bi- directional interface ; Source: Other Registry Payers Payer name Insurance type Covered republican ID Authoriza tijohn(s) [employer] [facility] [id number] Social History Type Description Quantity Date Captured [...] 1 Month ordered Referral Ordered: referred to shot bagger gastroparesis ordered Referral Ordered: Ultrasound Abdomen Appointment date/timeframe: 01/13/2020 ordered Referral Ordered: Colonoscopy Appointment date/timeframe: 01/04/2020 ordered Referral Ordered: Gastric Emptying Study (4 Hours) Appointment date/timeframe: 04/06/2019 ordered Referral Ordered: referred to Rivka Willis, [facility] at [facility]PL[facility]ION WELDER for dysphagia ordered Referral Ordered: Esoph Motility [...] female who is present today in the [facility]. Forty minutes were spent on this [...] recently moving into her own place in [place]. She no longer has a car. She [...] today via a virtual visit in the [facility] 42 minutes were spent on this [...] own place with plans to relocate to [place]. She will no longer have a car. [...] headaches, Sjogren's, connective tissue disease presenting to [facility] for follow-up. She is also [...] present today via virtual visit in the [facility] for ongoing management of nausea, esophageal [...] present today via virtual visit in the [facility] for ongoing management of nausea, esophageal [...] CO MPLAINTFollowup abnormal liver enzymes and likely exdl-iw-gsbudswi fibrosis.HISTORY OF PRESENT ILLNESSI had the pleasure [...] point, she does follow up in the [facility] with my colleague, Sadie Santana NP, for management of her chronic constipation as well as gastroparesis, and is scheduled for a followup appointment coming up next month. She was actually last seen in GI Symptoms or Concerns Elizabeth fulotn is a 71-year-old female, who is present [...] noted in her history was heterozygosity for tnymq-0-blyaqjvenzd with MZ phenotype and a low level of taozv-1-anwpuxidlqj and the serum at 69. She has [...] inquires about seeing an esophageal provider at [facility] for further recommendations. She has been following [...] 2012. GI Symptoms or Concerns Violeta g Panjoisit for Ms. Darrell Johnson, consent was obtained [...] years, but he is no longer with [facility], so she is now establishing care [...]
[2023-10-06 16:22] LABS: Slide Review Reflex No
[2023-10-06 16:27] LABS: Creatinine, Point-of-Care* 1.2 mg/dl (0.6-1.3)
[2023-10-06 16:32] LABS: Albumin* 4.6 g/dL (3.3-5.0); Chloride* 105 mmol/L (96-114); Potassium* 3.7 mmol/L (3.6-5.1); Sodium* 137 mmol/L (135-149)
[2023-10-06 16:34] LABS: Anion Gap 11 mEq/L (7-15); Aspartate Amino Transferase* 35 U/L (12-35); Bilirubin Total* 0.4 mg/dL (0.1-1.5); Carbon Dioxide* 21 mmol/L (20-32); Est. Creatinine Clearance* 42.07; Estimated Glomerular Filt Rate 60 ml/min; Total Protein* 7.4 g/dL (6.0-8.3)
[2023-10-06 16:35] LABS: Alanine Aminotransferase* 22 U/L (4-35); Alkaline Phosphatase* 70 U/L (40-150); Blood Urea Nitrogen* 16 mg/dL (7-30); Calcium* 9.6 mg/dL (8.4-10.6); Glucose* 103 mg/dL (60-115); Magnesium* 1.9 mg/dL (1.5-2.6)
[2023-10-06] MEDS: LACTATED RINGERS 1000 ML 1,000 ML IV (16:42)
[2023-10-06] MEDS: diphenhydrAMINE 50 MG/ML inj 25 MG IVP (16:42)
[2023-10-06] MEDS: METOCLOPRAMIDE HCL 5 MG/ML INJ 10 MG IVP (16:42)
[2023-10-06 17:07] LABS: PCR FLU A Negative PCR FLU A (Negative); PCR FLU B Negative PCR FLU B (Negative); PCR RSV Negative PCR RSV (Negative); SARS PCR* Negative SARS-CoV-2 (Negative)
[2023-10-06 17:38] LABS: Appearance Urine Clear (Clear); Bilirubin Urine Negative (Negative); Blood Urine Negative (Negative); Color Urine Yellow (Yellow); Glucose Urine Negative (Negative); Ketones Urine Negative (Negative); Leukocyte Esterase Urine Negative (Negative); Nitrite Urine Negative (Negative); Protein Urine Negative (Negative); Specific Gravity Urine <= 1.005 (1.000-1.030); Urobilinogen Urine 0.2 (0.2-1.0); pH Urine 5.5 (5.0-8.5)
[2023-10-06 18:08] LABS: RBC Urine 0-2 (0-2); WBC Urine 0-2 (0-5)
--- NOTE | 2023-10-06 18:20 | ED.NURSE ---
Report to CHERYLE Soria. Pt to go to room 261.
--- NOTE | 2023-10-06 19:13 | PM.IMHP1 ---
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 She tells me that her symptoms started last night with a headache. She had no vision changes with this headache, no photophobia or phonophobia. As the headache got worse, but she thought it was a migraine and took some Excedrin migraine. She has not had a migraine headache for about a year and did not feel exactly like a migraine headache either. The medicine did not help and she developed nausea, left neck pain and throughout the day felt worse and worse. She did not even feel well enough to take a shower. She also noticed a racing heart. Eventually she called her friend, Gladys, also a retired med surge nurse, who came and picked her up and brought her to the emergency department. When Gladys picked her up, Socorro got in Gladys's car, and Gladys didn't really take a good look at her until they got to the triage room in the ER. They were both the triage nurse and Gladys saw that socorro is left lower face was drooping when she tried to smile. Socorro did not notice any left face, arm, or leg weakness, numbness, or tingling either last night or any time today. Even now she does not notice this unless she is trying to do something for the exam. She denies any recent illnesses. She has not had any fevers or chills with this. She has had no tick exposure or travel. 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 Review of Systems Status of ROS: Reports: 10 or more systems reviewed and unremarkable except as noted in History and below [facility] Medical History (Updated 10/06/23 @ 21:01 by Janessa Davis MD) Liver disease ?K76.9 - Liver disease, unspecified (ICD-10) Panic disorder without agoraphobia (05/08/16) ?F41.0 - Panic disorder [episodic paroxysmal anxiety] (ICD-10) Osteoporosis (06/02/13) ?M81.0 - Age-related osteoporosis without current pathological fracture (ICD-10) Osteoarthritis (09/20/11) ?M19.90 - Unspecified osteoarthritis, unspecified site (ICD-10) Migraine headache (05/22/12) ?G43.909 - Migraine, unspecified, not intractable, without status migrainosus (ICD-10) Hypokalemia (06/13/20) ?E87.6 - Hypokalemia (ICD-10) HSV-1 (herpes simplex virus 1) infection (08/24/10) ?B00.9 - Herpesviral infection, unspecified (ICD-10) Generalized anxiety disorder (06/18/06) ?F41.1 - Generalized anxiety disorder (ICD-10) Fibromyalgia ?M79.7 - Fibromyalgia (ICD-10) Esophageal dysmotility (04/27/19) ?K22.4 - Dyskinesia of esophagus (ICD-10) Depression, major, recurrent, mild (04/01/17) ?F33.0 - Major depressive disorder, recurrent, mild (ICD-10) Degeneration of cervical intervertebral disc (03/08/10) ?M50.30 - Other cervical disc degeneration, unspecified cervical region (ICD-10) Weakness (06/13/20) ?R53.1 - Weakness (ICD-10) TMJ (temporomandibular joint disorder) (07/21/17) ?M26.609 - Unspecified temporomandibular joint disorder, unspecified side (ICD-10) Steatosis (10/21/21) ?E88.89 - Other specified metabolic disorders (ICD-10) Sjogren's syndrome (04/26/08) ?M35.00 - Sjogren syndrome, unspecified (ICD-10) Sensorineural hearing loss, bilateral (08/30/14) ?H90.3 - Sensorineural hearing loss, bilateral (ICD-10) Selective IgA immunodeficiency ?D80.2 - Selective deficiency of immunoglobulin A [IgA] (ICD-10) Prolonged QT interval (06/13/20) ?R94.31 - Abnormal electrocardiogram [ECG] [EKG] (ICD-10) Prediabetes (12/30/19) ?R73.03 - Prediabetes (ICD-10) Persistent depressive disorder (05/16/22) ?F34.1 - Dysthymic disorder (ICD-10) Chronic pain syndrome (05/26/12) ?G89.4 - Chronic pain syndrome (ICD-10) Chronic GERD (02/01/19) ?K21.9 - Gastro-esophageal reflux disease without esophagitis (ICD-10) Chronic cholecystitis (07/23/23) ?K81.1 - Chronic cholecystitis (ICD-10) Adenomatous polyp of colon (01/11/20) ?D12.6 - Benign neoplasm of colon, unspecified (ICD-10) Actinic keratosis (02/02/18) ?L57.0 - Actinic keratosis (ICD-10) Surgical History (Updated 10/06/23 @ 18:53 by Janessa Davis MD) Hx of tonsillectomy ?Z90.89 - Acquired absence of other organs (ICD-10) H/O sinus surgery ?Z98.890 - Other specified postprocedural states (ICD-10) History of partial hysterectomy ?Z90.711 - Acquired absence of uterus with remaining cervical stump (ICD-10) History of liver biopsy ?Z98.890 - Other specified postprocedural states (ICD-10) Hx laparoscopic cholecystectomy ?Z90.49 - Acquired absence of other specified parts of digestive tract (ICD-10) H/O eye surgery ?Z98.890 - Other specified postprocedural states (ICD-10) Family History (Updated 10/06/23 @ 19:23 by Janessa Davis MD) Brother Alcohol dependence Diabetes Father Cardiovascular disease Myocardial infarction Mother Depression Anxiety Stroke Social History (Updated 10/06/23 @ 20:05 by Janessa Davis MD) Narrative: Lives independently. Lifelong nonsmoker, no alcohol, no recreational drugs. FULL CODE. Does not want [employer] continuous churn life support. What is your current living situation?: I presently have a place to live Problems where you live: no known problems Problems where you live details: N/A In the past 12 months, utilities in danger of being shut off: no In past 12 months, lack of transportation kept you from medical appts, meetings, work, or getting things needed for daily living: no In the past 12 mos, have been you worried that your food would run out before you had money to buy more?: never true In the past 12 mos, the food you bought just didn't last and you didn't have money to buy more?: never true Smoking Status: Never smoker Do you use any of these nicotine containing products: None Second hand tobacco smoke exposure: No How often do you have a drink containing alcohol: never AUDIT-C Alcohol total score: 0 Non-prescribed substance use: denies use Caffeine: Yes How often does anyone, including family, friends and others, physically hurt you: never How often does anyone, including family, friends and others, insult or talk down to you: never How often does anyone, including family, friends and others, threaten you with harm: never How often does anyone, including family, friends and others, scream or curse at you: never service: No Meds Home Medications and Allergies Home Medications ?Medication ?Instructions ?Recorded ?Confirmed ?Type bupropion HCl 300 mg 24 hr tablet, 300 mg PO DAILY 10/06/23 10/06/23 History extended release cetirizine 10 mg capsule (All Day 10 mg PO DAILY PRN 10/06/23 10/06/23 History Allergy (cetirizine)) cholecalciferol (vitamin D3) 25 2,000 unit PO DAILY 10/06/23 10/06/23 History mcg (1,000 unit) capsule clonazepam 1 mg tablet 1 mg PO 3XD PRN 10/06/23 10/06/23 History dextroamphetamine-amphetamine 10 10 mg PO BID 10/06/23 10/06/23 History mg tablet famotidine 40 mg tablet 40 mg PO QPM PRN 10/06/23 10/06/23 History lubiprostone 24 mcg capsule 24 mcg PO BID 10/06/23 10/06/23 History omeprazole 40 mg capsule,delayed 40 mg PO BID 10/06/23 10/06/23 History release potassium chloride 20 mEq oral 20 meq PO Q48H 10/06/23 10/06/23 History packet (Klor-Con) sennosides 8.6 mg-docusate sodium PO 10/06/23 History 50 mg tablet topiramate 100 mg tablet 100 mg PO HS 10/06/23 10/06/23 History topiramate 25 mg tablet 25 mg PO HS 10/06/23 10/06/23 History valacyclovir 500 mg tablet 500 mg PO HS 10/06/23 10/06/23 History Allergies Allergy/AdvReac Type Severity Reaction Status Date / Time amoxicillin [From Augmentin] Allergy Verified 10/06/23 16:18 clavulanic acid Allergy Verified 10/06/23 16:18 [From Augmentin] duloxetine [From Cymbalta] Allergy Verified 10/06/23 16:18 nitrofurantoin Allergy Verified 10/06/23 16:18 [From Macrobid] Exam Narrative: Exam Narrative: General: No acute distress. Sitting in bedside chair, holding her head in her hand. Affect is mostly flat, but does smile on rare occasion in response to a joke. Awake alert oriented x3. HEENT: Normocephalic atraumatic, pupils equally round and reactive to light and accommodation. Oropharynx clear. Mucous membranes are moist. No cervical lymphadenopathy, thyromegaly or carotid bruits. No JVD. Cardiovascular: Regular rate and rhythm. No murmurs, gallops, or rubs. Chest: No increased work of breathing. Clear to auscultation bilaterally. No crackles or wheezes. Abdomen: Bowel sounds present. Soft, nondistended, nontender. Extremities: No edema, no cyanosis or clubbing. Skin: No jaundice, no pallor, no rashes. Neuro: Mild left pronator drift noted. Left lower facial droop noted while she is trying to smile and on occasion when she is talking. She also had difficulty puffing out her cheeks, both of them. Cranial nerves 2-12 are otherwise intact. Extraocular movements are full. No nystagmus. No facial asymmetry. Tongue is midline. Peripheral vision and vision are grossly intact (she notes that she has very poor vision at baseline in her right eye, and this has not changed). Left military science teacher strength is 4/5, otherwise left upper extremities 5/5 strength. Right upper extremities 5/5 strength. Right lower extremity 5/5 strength. Left lower extremity 3/5 strength. Light touch sensation is intact in face body and extremities. [id number], turn over hand clap and heel to frank tests are sluggish on the left, unremarkable on the right. Const: Vital Signs, click to edit/add: Vital Signs - 24 hr 10/06/23 15:40 10/06/23 15:46 10/06/23 15:53 Temperature 97.7 F Pulse Rate 89 87 Pulse Rate [Pulse Oximeter] 94 Respiratory Rate 20 Blood Pressure 113/62 Blood Pressure [Le ft Upper Arm] 136/62 Blood Pressure [Ri ght Arm] Pulse Oximetry 95 98 97 Oxygen Delivery Me thod Room Air 10/06/23 16:00 10/06/23 16:02 10/06/23 16:15 Temperature Pulse Rate 84 83 84 Pulse Rate [Pulse Oximeter] Respiratory Rate Blood Pressure 113/62 Blood Pressure [Le ft Upper Arm] Blood Pressure [Ri ght Arm] Pulse Oximetry 97 97 98 Oxygen Delivery Me thod 10/06/23 16:32 10/06/23 16:40 10/06/23 16:45 Temperature Pulse Rate 84 83 Pulse Rate [Pulse Oximeter] Respiratory Rate Blood Pressure 118/52 L Blood Pressure [Le ft Upper Arm] Blood Pressure [Ri ght Arm] Pulse Oximetry 99 100 Oxygen Delivery Me thod 10/06/23 17:00 10/06/23 17:02 10/06/23 17:15 Temperature Pulse Rate 85 83 85 Pulse Rate [Pulse Oximeter] Respiratory Rate Blood Pressure 102/62 Blood Pressure [Le ft Upper Arm] Blood Pressure [Ri ght Arm] Pulse Oximetry 100 100 100 Oxygen Delivery Me thod 10/06/23 17:33 10/06/23 17:35 10/06/23 17:45 Temperature Pulse Rate 78 80 84 Pulse Rate [Pulse Oximeter] Respiratory Rate Blood Pressure 109/55 L Blood Pressure [Le ft Upper Arm] Blood Pressure [Ri ght Arm] Pulse Oximetry 100 100 100 Oxygen Delivery Me thod 10/06/23 18:00 10/06/23 18:02 10/06/23 18:32 Temperature 98.3 F Pulse Rate 82 82 Pulse Rate [Pulse Oximeter] 81 Respiratory Rate 16 Blood Pressure 106/66 Blood Pressure [Le ft Upper Arm] Blood Pressure [Ri ght Arm] 113/62 Pulse Oximetry 99 99 100 Oxygen Delivery Me thod Room Air Hospitalist - H&P: Result Labs Labs: Short CBC 10/06/23 Range/Units 15:45 WBC 7.37 (4.50-11.00) K/uL Hgb 12.1 (12.0-16.0) gm/dL Hct 37.0 (33.0-51.0) % Plt Count 270 (140-440) K/uL BMP 10/06/23 15:45 Sodium 137 Potassium 3.7 Chloride 105 Carbon Dioxide 21 BUN 16 Creatinine 1.0 Glucose 103 Calcium 9.6 Liver Function 10/06/23 Range/Units 15:45 Total Bilirubin 0.4 (0.1-1.5) mg/dL AST 35 (12-35) U/L ALT 22 (4-35) U/L Alkaline Phosphatase 70 (40-150) U/L Albumin 4.6 (3.3-5.0) g/dL Urine 10/06/23 Range/Units 17:32 Urine Color Yellow (Yellow) Urine Appearance Clear (Clear) Urine pH 5.5 (5.0-8.5) Ur Specific [place] <= 1.005 (1.000-1.030) Urine Protein Negative (Negative) Urine Glucose (UA) Negative (Negative) Ordering Physician: Chris Kaiser D.O. Date of Service: 10/06/23 Procedure(s): CT head/brain [facility] Accession Number(s): [id number] cc: Chris Kaiser D.O.; Maria Luisa Gant M.D.~ For Patients: As a result of the Century Cures Act, medical imaging exams and procedure reports are released immediately into your electronic medical record. You may view this report before your referring provider. If you have questions, please contact your health care provider. CLINICAL HISTORY: Left facial droop. TECHNIQUE: Standard helical CT image acquisition through the head was performed. COMPARISON: None available. FINDINGS: No acute intracranial hemorrhage, extra-axial collection, mass effect or midline shift. Leonard-white matter differentiation is preserved. Very mild generalized parenchymal volume loss with resulting mild prominence of cerebral sulci and the ventricular system. Mild patchy hypoattenuation in the white matter of both hemispheres likely reflect sequela of chronic small vessel ischemia. Intracranial atherosclerotic calcification. The calvarium is unremarkable. Thinning of the ocular lenses. The paranasal sinuses and mastoid air cells are well aerated. IMPRESSION: No CT evidence of acute intracranial abnormality. Please note that all CT scans at this facility use dose modulation, iterative reconstruction, and/or weight-based dosing when appropriate to reduce radiation dose to as low as reasonably achievable. Dictated by Osmany Hope MD @ 10/06/2023 4:55:55 PM (Electronically Signed) Ordering Physician: Chris Kaiser D.O. Date of Service: 10/06/23 Procedure(s): CT angio head Accession Number(s): [id number] cc: Chris Kaiser D.O.; Maria Luisa Gant M.D.~ For Patients: As a result of the Cures Act, medical imaging exams and procedure reports are released immediately into your electronic medical record. You may view this report before your referring provider. If you have questions, please contact your health care provider. CLINICAL HISTORY: Left facial droop. TECHNIQUE: Standard helical CT image acquisition through the head following the administration of intravenous contrast was performed. 3D and MIP reconstructions were performed at a separate workstation and permanently archived. COMPARISON: None available. FINDINGS: No intracranial proximal large vessel occlusion or flow-limiting luminal stenosis. No evidence of cerebral aneurysm. No findings to suggest an arterial-venous shunting lesion. IMPRESSION: No intracranial proximal large vessel occlusion, flow-limiting luminal stenosis, or cerebral aneurysm. Please note that all CT scans at this facility use dose modulation, iterative reconstruction, and/or weight-based dosing when appropriate to reduce radiation dose to as low as reasonably achievable. Dictated by Osmany Hope MD @ 10/06/2023 5:03:05 PM (Electronically Signed) Ordering Physician: Chris Kaiser D.O. Date of Service: 10/06/23 Procedure(s): CT angio neck Accession Number(s): [id number] cc: Chris Kaiser D.O.; Maria Luisa Gant M.D.~ For Patients: As a result of the Cures Act, medical imaging exams and procedure reports are released immediately into your electronic medical record. You may view this report before your referring provider. If you have questions, please contact your health care provider. CLINICAL HISTORY: Left facial droop. TECHNIQUE: Standard helical CT image acquisition through the neck was performed after intravenous contrast bolus enhancement. 3D and MIP reconstructions were performed at a separate workstation and permanently archived. COMPARISON: None available. FINDINGS: The origins of the great vessels from the aortic arch are patent. The common carotid arteries are patent. 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 No significant stenosis of the proximal right ICA. The more distal cervical segments of the ICAs are patent. The origins and cervical segments of the vertebral arteries are patent. Note is made of corrugated morphology of the mid to distal cervical ICAs which may reflect underlying fibromuscular dysplasia IMPRESSION: 1. 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 2. Findings in the cervical arterial vasculature are suggestive of fibromuscular dysplasia. Please note that all CT scans at this facility use dose modulation, iterative reconstruction, and/or weight-based dosing when appropriate to reduce radiation dose to as low as reasonably achievable. Dictated by Osmany Hope MD @ 10/06/2023 5:01:28 PM (Electronically Signed) Assessment and Plan Assessment and plan (1) Weakness of left side of body: Problem comment: - Left lower face, arm and leg weakness and decreased coordination. - CT head and CTA head/neck unremarkable for stroke. I spoke with Dr. Chew from [facility] who recommended an MRI in the morning, aspirin 324mg now and 81mg daily. I have also ordered an ECHO which can be cancelled if there is no evidence of stroke on the MRI. I will also have her on telemetry and serial neuro exams overnight. Status: Acute (2) Migraine headache: Problem comment: - Follows with [facility]. - Has not had one for a year. Status: Chronic H&P: Quality Stroke Contraindication Not Initiating IV-Tpa: Medical contraindication (symptoms started more than 12 hours ago) Onset of Symptoms Date: 10/05/23
[2023-10-06] MEDS: ENOXAPARIN 40 MG/0.4 ML INJ SUBCUT (21:49)
[2023-10-06] MEDS: SODIUM CHLORIDE 0.9 % (FLUSH) 10 ML SYRINGE 5 ML IVF (21:50)
[2023-10-06] MEDS: VALACYCLOVIR HCL 500 MG TABLET PO (21:50)
[2023-10-06] MEDS: ACETAMINOPHEN 325 MG TABLET PO (21:51)
[2023-10-06] MEDS: OMEPRAZOLE 20 MG CAPSULE DR 40 MG PO (21:51)
[2023-10-06] MEDS: TOPIRAMATE 50 MG TABLET 100 MG PO (21:52)
[2023-10-06] MEDS: TOPIRAMATE 25 MG TABLET PO (21:53)
[2023-10-06] MEDS: ASPIRIN 81 MG TAB.CHEW 324 MG PO (21:53)
[2023-10-06] MEDS: clonazePAM 0.5 MG TABLET 1 MG PO (22:02)
[2023-10-07 02:27] VITALS: PULSE 69
[2023-10-07 02:28] VITALS: BP 105/52; PULSE 69; RESP 16; TEMP 36.6; O2SAT 99
[2023-10-07 04:10] VITALS: TEMP 36.6
[2023-10-07] MEDS: ACETAMINOPHEN 325 MG TABLET PO ×2 (04:10→09:20)
--- NOTE | 2023-10-07 04:20 | PC.NURSE ---
Pt rested well this night. Has headache but has relief with Tylenol. Mild Left sided weakness present. Speech clear and Pt coherent. Pt Up IND and stable without any kind of dizziness or light headedness.
[2023-10-07 06:23] VITALS: PULSE 69
[2023-10-07 07:00] VITALS: BP 110/53; PULSE 73; RESP 16; O2SAT 99
--- NOTE | 2023-10-07 07:00 | CRLHL7_ITS ---
For Patients: As a result of the Century Cures Act, medical imaging exams and procedure reports are released immediately into your electronic medical record. You may view this report before your referring provider. If you have questions, please contact your health care provider. Indication: Left lower face, arm, and leg weakness Technique: Noncontrast sagittal T1, axial FLAIR, T2 turbo spine echo, and diffusion weighted images. Supplemental post contrast T1 weighted axial and coronal sequences are provided after administration of 13 mL Dotarem gadolinium-based IV contrast. Comparison: CT 10/06/2023 Findings: The ventricles, sulci and gyri are normal size, shape and contour for age. The midline structures are centrally located with no evidence of shift. There are no suspicious intra or extra-axial fluid collections. No evidence of restricted diffusion to suggest acute ischemia. Multiple scattered foci of T2 prolongation in the supratentorial white matter are nonspecific. The pituitary gland, optic chiasm, pineal gland, and cerebellar tonsils are unremarkable. Leftward deviation of the nasal septum. No pathologic susceptibility artifacts. Expected flow voids in the cavernous carotids and basilar artery. No abnormal contrast enhancement involving the brain parenchyma, meninges, calvarium or skull base. Mild membrane thickening in the paranasal sinuses. Impression: 1. No acute intracranial abnormality. 2. Normal parenchymal volume. Multiple small foci of T2 prolongation in the supratentorial white matter nonspecific. Differential considerations include sequela of migraine headaches and chronic small vessel disease. 3. No pathologic enhancement. Dictated by Yuval Pinto MD @ 10/07/2023 9:14:22 AM (Electronically Signed)
[2023-10-07 08:02] LABS: Ethanol* < 0.01 % (0.01-0.03)
[2023-10-07 08:21] LABS: Amphetamine Screen Urine POSITIVE (Negative); Barbiturate Screen Urine Negative (Negative); Benzodiazepines Screen Urine Negative (Negative); Cannabinoid Screen Urine Negative (Negative); Cocaine Screen Urine Negative (Negative); Methadone Screen Urine Negative (Negative); Methamphetamines Screen Urine Negative (Negative); Opiate Screen Urine Negative (Negative); Oxycodone Screen Urine Negative (Negative); Phencyclidine Screen Urine Negative (Negative); Tricyclic Antidepressant Urine Negative (Negative)
[2023-10-07] MEDS: OMEPRAZOLE 20 MG CAPSULE DR 40 MG PO (09:20)
[2023-10-07] MEDS: ASPIRIN 81 MG TAB.CHEW PO (09:20)
[2023-10-07] MEDS: POTASSIUM CHLORIDE 10 MEQ CAPSULE ER 20 MEQ PO (09:21)
[2023-10-07] MEDS: buPROPion XL 150 MG TABLET 300 MG PO (09:21)
[2023-10-07] MEDS: SODIUM CHLORIDE 0.9 % (FLUSH) 10 ML SYRINGE 5 ML IVF (09:22)
--- NOTE | 2023-10-07 09:47 | PM.DS1 ---
DS: Providers Provider Date Seen: 10/07/23 Date of admission: 10/06/23 18:30 Primary care physician: Maria Luisa Gant MD Admitting Clinician: Janessa Davis MD Consults: PT, OT, Stroke Neurology Attending Physician on discharge: Monet Archibald MD Date of Discharge: 10/07/23 DS: Diagnosis Discharge Diagnosis (1) Weakness of left side of body: Status: Acute Problem details: - Left lower face, arm and leg weakness, decreased coordination - CT head + CTA head/neck unremarkable. Dr. Chew from [place] Stroke Neurology consulted on admission, recommended ASA + MRI brain - MRI obtained 10/06 and normal, telemetry also reassuring during stay - seen by therapies on hospital day 1, no needs identified (2) Migraine headache: Status: Chronic Problem details: - Follows with [facility] for these, currently well controlled DS: Summary Hospital Course Hospital Course: Elizabeth is a 73-year-old female who presented to the hospital on 10/05 with the left facial droop, left-sided weakness, decreased coordination. There was concern for CVA; imaging obtained in the emergency room was reassuring. She was admitted for overnight monitoring and telemetry, which remained within normal limits. MRI obtained on hospital 1 exhibited no acute findings and patient requested discharge home. She was seen by PT and OT who did not identify any further workup or needs. Of note, Elizabeth is seeing the dentist tomorrow for an ill-fitting partial on the L side of her mouth, which may have contributed to the left-sided facial droop noted during stay. Status at Discharge Functional status at discharge: independent ambulation Overall status at discharge: patient is back to baseline Time Spent with Patient Time attestation: Total time spent providing and/or coordinating discharge services: Time spent: Greater than 30 minutes Specific discharge activities: Medication reconciliation, patient Education, review of testing done during stay, multidisciplinary team discussion Exam Narrative: Exam Narrative: GEN: Alert and oriented, sitting up in bed and speaking in full sentences HEENT: Very mild droop on L side of mouth noted. EOMIs bilaterally CV: RRR, No concerning murmurs, no carotid bruits R: LCTA bilaterally without concerning wheezing, air movement adequate Ext: wwp, no concerning edema Skin: No concerning skin lesions or rashes on exposed skin Neuro: No resting tremor. Normal and symmetric make up arranger strength BUE, normal and symmetric movement of all extremities, gait not formally observed Psych: Appropriate Const: Vital Signs, click to edit/add: Vital Signs - 24 hr 10/06/23 15:40 10/06/23 15:46 10/06/23 15:53 Temperature 97.7 F Pulse Rate 89 87 Pulse Rate [Pulse Oximeter] 94 Respiratory Rate 20 Blood Pressure 113/62 Blood Pressure [Le ft Upper Arm] 136/62 Blood Pressure [Ri ght Arm] Pulse Oximetry 95 98 97 Oxygen Delivery Me thod Room Air 10/06/23 16:00 10/06/23 16:02 10/06/23 16:15 Temperature Pulse Rate 84 83 84 Pulse Rate [Pulse Oximeter] Respiratory Rate Blood Pressure 113/62 Blood Pressure [Le ft Upper Arm] Blood Pressure [Ri ght Arm] Pulse Oximetry 97 97 98 Oxygen Delivery Me thod 10/06/23 16:32 10/06/23 16:40 10/06/23 16:45 Temperature Pulse Rate 84 83 Pulse Rate [Pulse Oximeter] Respiratory Rate Blood Pressure 118/52 L Blood Pressure [Le ft Upper Arm] Blood Pressure [Ri ght Arm] Pulse Oximetry 99 100 Oxygen Delivery Me thod 10/06/23 17:00 10/06/23 17:02 10/06/23 17:15 Temperature Pulse Rate 85 83 85 Pulse Rate [Pulse Oximeter] Respiratory Rate Blood Pressure 102/62 Blood Pressure [Le ft Upper Arm] Blood Pressure [Ri ght Arm] Pulse Oximetry 100 100 100 Oxygen Delivery Me thod 10/06/23 17:33 10/06/23 17:35 10/06/23 17:45 Temperature Pulse Rate 78 80 84 Pulse Rate [Pulse Oximeter] Respiratory Rate Blood Pressure 109/55 L Blood Pressure [Le ft Upper Arm] Blood Pressure [Ri ght Arm] Pulse Oximetry 100 100 100 Oxygen Delivery Me thod 10/06/23 18:00 10/06/23 18:02 10/06/23 18:32 Temperature 98.3 F Pulse Rate 82 82 Pulse Rate [Pulse Oximeter] 81 Respiratory Rate 16 Blood Pressure 106/66 Blood Pressure [Le ft Upper Arm] Blood Pressure [Ri ght Arm] 113/62 Pulse Oximetry 99 99 100 Oxygen Delivery Me thod Room Air 10/06/23 20:43 10/06/23 21:38 10/06/23 21:51 Temperature 98.3 F Pulse Rate 83 Pulse Rate [Pulse Oximeter] 81 Respiratory Rate Blood Pressure Blood Pressure [Le ft Upper Arm] Blood Pressure [Ri ght Arm] Pulse Oximetry Oxygen Delivery Me thod 10/06/23 22:10 10/06/23 22:15 10/07/23 02:27 Temperature 97.6 F Pulse Rate Pulse Rate [Pulse Oximeter] 75 75 69 Respiratory Rate 16 16 Blood Pressure Blood Pressure [Le ft Upper Arm] Blood Pressure [Ri ght Arm] 103/60 Pulse Oximetry 96 Oxygen Delivery Me thod Room Air 10/07/23 02:28 10/07/23 04:10 10/07/23 06:23 Temperature 97.8 F 97.8 F Pulse Rate Pulse Rate [Pulse Oximeter] 69 69 Respiratory Rate 16 Blood Pressure Blood Pressure [Le ft Upper Arm] Blood Pressure [Ri ght Arm] 105/52 L Pulse Oximetry 99 Oxygen Delivery Me thod Room Air DS: Data Data Completed and Pending Labs on day of discharge: Labs from last 24 hours 10/07/23 10/06/23 10/06/23 07:42 17:32 17:30 WBC RBC Hgb Hct MCV MCH MCHC RDW Coeff of Krystina Plt Count Neut % (Auto) Lymph % (Auto) Craig % (Auto) Eos % (Auto) Baso % (Auto) Neut # (Auto) Lymph # (Auto) Craig # (Auto) Eos # (Auto) Baso # (Auto) Abs Immat Gran (auto) Imm/Tot Granulo (auto) Sodium Potassium Chloride Carbon Dioxide Anion Gap BUN Creatinine Estimated Creat Clear Estimated GFR Glucose Calcium Magnesium Total Bilirubin AST ALT Alkaline Phosphatase Total Protein Albumin TSH Urine Color Yellow Urine Appearance Clear Urine pH 5.5 Ur Specific [place] <= 1.005 Urine Protein Negative Urine Glucose (UA) Negative Urine Ketones Negative Urine Blood Negative Urine Nitrite Negative Urine Bilirubin Negative Urine Urobilinogen 0.2 Ur Leukocyte Esterase Negative Urine RBC 0-2 Urine WBC 0-2 Ur Squamous Epith Cells None Urine Bacteria None Urine Opiates Screen Negative Ur Oxycodone Screen Negative Urine Methadone Screen Negative Ur Barbiturates Screen Negative U Tricyclic Antidepress Negative Ur Phencyclidine Scrn Negative Ur Amphetamines Screen POSITIVE A U Methamphetamines Scrn Negative U Benzodiazepines Scrn Negative Urine Cocaine Screen Negative U Marijuana (THC) Screen Negative Ur Drug Screen Comment See Note Ethyl Alcohol SARS-CoV-2 (PCR) Influenza Type A (PCR) Influenza Type B (PCR) RSV (PCR) Lab Acknowledgement Test Added POC Creatinine POC Troponin I 10/06/23 10/06/23 16:13 15:45 WBC 7.37 RBC 3.99 L Hgb 12.1 Hct 37.0 MCV 93 MCH 30 MCHC 33 RDW Coeff of Krystina 13.0 Plt Count 270 Neut % (Auto) 56.6 Lymph % (Auto) 33.4 Craig % (Auto) 8.8 Eos % (Auto) 0.8 Baso % (Auto) 0.3 Neut # (Auto) 4.17 Lymph # (Auto) 2.46 Craig # (Auto) 0.60 Eos # (Auto) 0.06 Baso # (Auto) 0.02 Abs Immat Gran (auto) 0.01 Imm/Tot Granulo (auto) 0.1 Sodium 137 Potassium 3.7 Chloride 105 Carbon Dioxide 21 Anion Gap 11 BUN 16 Creatinine 1.0 Estimated Creat Clear 42.07 Estimated GFR 60 Glucose 103 Calcium 9.6 Magnesium 1.9 Total Bilirubin 0.4 AST 35 ALT 22 Alkaline Phosphatase 70 Total Protein 7.4 Albumin 4.6 TSH 1.670 Urine Color Urine Appearance Urine pH Ur Specific [place] Urine Protein Urine Glucose (UA) Urine Ketones Urine Blood Urine Nitrite Urine Bilirubin Urine Urobilinogen Ur Leukocyte Esterase Urine RBC Urine WBC Ur Squamous Epith Cells Urine Bacteria Urine Opiates Screen Ur Oxycodone Screen Urine Methadone Screen Ur Barbiturates Screen U Tricyclic Antidepress Ur Phencyclidine Scrn Ur Amphetamines Screen U Methamphetamines Scrn U Benzodiazepines Scrn Urine Cocaine Screen U Marijuana (THC) Screen Ur Drug Screen Comment Ethyl Alcohol < 0.01 L SARS-CoV-2 (PCR) Negative SARS-CoV-2 Influenza Type A (PCR) Negative PCR FLU A Influenza Type B (PCR) Negative PCR FLU B RSV (PCR) Negative PCR RSV Lab Acknowledgement POC Creatinine 1.2 POC Troponin I 0.00 L Discharge Plan Discharge Disposition: Home, Self-Care Date of Admission: 10/06/23 18:30 Attending Provider on Discharge: Monet Archibald Primary Care Provider: Maria Luisa Gant I Condition: Improved Anticipated Discharge Date/Time: 10/07/23 09:39 Discharge Medications: Continued famotidine 40 mg tablet 40 mg PO HS PRN clonazepam 1 mg tablet 1 mg PO TID PRN Patient Comments: takes 3 times a day scheduled topiramate 25 mg tablet 25 mg PO HS omeprazole 40 mg capsule,delayed release(DR/EC) 40 mg PO BID potassium chloride [Klor-Con] 20 mEq packet 20 meq PO Q48H topiramate 100 mg tablet 100 mg PO HS bupropion HCl 300 mg tablet extended release 24 hr 300 mg PO DAILY lubiprostone 24 mcg capsule 24 mcg PO BID All Day Allergy (cetirizine) 10 mg capsule 10 mg PO DAILY PRN Hold Instructions: seasonal cholecalciferol (vitamin D3) 25 mcg (1,000 unit) capsule 2,000 unit PO DAILY Rx Instructions: Take 2 Capsules (2,000 units) by mouth once daily. dextroamphetamine-amphetamine 10 mg tablet 10 mg PO BID Rx Instructions: Take 1 Tablet (10 mg) by mouth 2 times daily at 7 AM and Noon. sennosides-docusate sodium 8.6-50 mg tablet 1 tab-cap PO BID PRN Rx Instructions: Take 1 Tablet by mouth 2 times daily if needed for Constipation. valacyclovir 500 mg tablet 500 mg PO HS Rx Instructions: take 1 tablet by oral route every day Discharge Orders: Discharge Order (Routine); Ordered 10/07/23 Ordered By: Monet Archibald Patient Education: Transient Ischemic Attack (DC) Additional Instructions: - no changes to home medications - see Dr. Gant as scheduled, discuss followup echocardiogram (heart ultrasound) at that time - if symptoms recur, you should be seen again Activity Level: Activity as Tolerated Discharge Diet: Regular Follow Up Appointments: Maria Luisa Gant MD [Primary Care Provider] - 10/10/23 8:45 am ([facility] for follow-up.) Forms: IPICO Info Instructions
--- NOTE | 2023-10-07 11:27 | REH.PT ---
Orders for PT eval and treat received. Pt echoo's ind transfers STS and supine<>sit. Scoring 54/56 on Stevens balance test. Ind gait without an AD 400' and completed stairs ind. No unilateral strength deficits elicited. Pt at baseline with functional mobility. DC PT.
--- NOTE | 2023-10-07 12:05 | PC.NURSE ---
Discharge - Pt alert, oriented, cooperative. Up independently in room. Tolerating RA, regular diet/fluids. Pt continent of bowel and bladder during shift. RN noted slight L sided facial droop, pt denied feeling physical change or restriction to L side of face or L sided extremities. Discharge education provided and pt questions answered by CHERYLE Henderson. IV removed with catheter intact, pt ambulated from unit to home at approximately 1120.
== END 2023-10-07 11:20 | disposition home or self-care (01) ==
LOC: ED 18:05 → MEDSURG 18:31
PROVIDERS: Family Medicine; Admitting Provider Family Medicine; Emergency Provider Student in an Organized Health Care Education/Training Program; PCP Family Medicine; Visit Provider Family Medicine
DX: I10 Essential (primary) hypertension (principal)
CPT/HCPCS: 36415; 70450; 70496; 70498; 70553; 80053; 80306; 81001; 82077; 82565; 83735; 84443; 84484; 85025; 87631; 93005; 96361; 96372; 96374; 96375; 97165; 99283; 99285; G0378; A9270; A9575; J1200; J1650; J2765; J7120; Q9967

== ENCOUNTER 2023-10-28 07:34 | Outpatient (CLI) | payer MEDICARE, SELFPAY ==
--- OUTSIDE RECORDS SUMMARY | 2023-10-28 07:38 | XMS_ITS | Clinical Summary ---
Author Organization [facility] Address [address] [place] [address]. 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 Height 160 cm (5' 3) 12/31/2022 3:04 [...] 2023 02/04/2023, 02/05/2022, 07/25/2021, Additional history exists INFLUENZA VACCINE (#1) 2023 , 02/05/2022, 12/28/2020, Additional history exists MEDICARE ANNUAL WELLNESS VISIT 01/15/2024 01/14/2023, 10/18/2021, 12/28/2019 MAMMO SCREENING 02/04/2025 02/04/2023, 01/14, 12/07/2021, Additional history exists ADVANCE CARE PLANNING 06/30/2025 06/30/2020 GLUCOSE 12/31/2025 12/31/2022, 03/0 05/2020, 06/13/2020, Additional history exists DTAP/TDAP/TD IMMUNIZATION (3 - Td or Tdap) 09/12/2027 09/11/2017, 06/03/2006 Pneumococcal Vaccine: 65+ Years Completed 12/24/2018, 02/19/2018, 01/13/2017, Additional history exists ZOSTER IMMUNIZATION Completed 01/21/2019, 9 HPV IMMUNIZATION Aged Out No longer e [...] FREE T4 REFLEX STAT 06/13/2020 2:39 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 Prolonged QT interval from Last 3 Months or Most Recently Relevant to Health Maintenance Results * (ABNORMAL) Comprehensive metabolic panel (12/31/2022 4:12 PM CDT) Sodium 145 136 - 145 mmol/L 12/31/2022 4:47 PM [facility] Potassium 3.8 3.4 - 5.3 mmol/L 12/31/2022 4:47 PM [facility] Chloride 111(H) 98 - 107 mmol/L 12/31/2022 4:47 PM [facility] Carbon Dioxide (CO2) 25 22 - 29 mmol/L 12/31/2022 4:47 PM CDT [facility] Anion Gap 9 7 - 15 mmol/L 12/31/2022 4:47 PM [facility] Urea Nitrogen 7.5(L) 8.0 - 23.0 mg/dL 12/31/2022 4:47 PM T [facility] Creatinine 1.09(H) 0.51 - 0.95 mg/dL 12/31/2022 4:47 PM [facility] Calcium 9.6 8.8 - 10.2 mg/dL 12/31/2022 4:47 PM [facility] Glucose 83 70 - 99 mg/dL 12/31/2022 4:47 PM [facility] Alkaline Phosphatase 70 35 - 104 U/L 12/31/2022 4:47 PM T [facility] AST 27 0 - 45 U/L 12/31/2022 4:47 PM [facility] Comment:Reference intervals for this test were updated on 09/24/2022 to more accurately reflect our healthy population. There may be differences in the flagging of prior results with similar values performed with this method. Interpretation of those prior results can be made in the context of the updated reference intervals. ALT 12 0 - 50 U/L 12/31/2022 4:47 PM T [facility] Comment:Reference intervals for this test were updated on 09/24/2022 to more accurately reflect our healthy population. There may be differences in the flagging of prior results with similar values performed with this method. Interpretation of those prior results can be made in the context of the updated reference intervals. Protein Total 7.1 6.4 - 8.3 g/dL 12/31/2022 4:47 PM CDT [facility] Albumin 4.6 3.5 - 5.2 g/dL 12/31/2022 4:47 PM [facility] Bilirubin Total 0.3 <=1.2 mg/dL 12/31/2022 4:47 PM CDT [facility] GFR Estimate 54(L) >60 mL/min/1. 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) TSH 0.46 0.40 - 4.00 mU/L 06/13/2020 3:52 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 [facility] Blood specimen (specimen) 06/13/2020 2:39 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 06/13/2020 3:06 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 Rivera Allen MD LAB - BLOOD ORDERABL ES Performing Organization Address City/[facility]/ZIP Co de Phone Number [facility] [address] [place] [address], [facility] [phone] from Last 3 Months or Most Recently Relevant to Health Maintenance Advance Directives For more information, please contact: [phone] Documents on File Type Date Recorded 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
--- OUTSIDE RECORDS SUMMARY | 2023-10-28 07:38 | XMS_ITS | Clinical Summary ---
Author Organization [facility] Address [place], [place] [address] Care Team Providers Care Sale Professional Digital Marketing Name Role Phone Dawsonkaran Tameka Coello ORACLE SECURITY CONSULTANT Unavailable Larry Cole MD Unavailable Marcy Escobar RN Unavailable Hola Michael MD Unavailable Sadie Santana ORACLE SECURITY CONSULTANT Unavailable Malika Cortes RICE MILLING SUPERVISOR Unavailable Medardo Escamilla DO Unavailable [phone] Maria Luisa Gant MD Primary Care Provider [phone] Allergies Active Allergy Reactions Criticality Noted Date [...] 05/18/2020 Active cholecalciferol (Vitamin D) 1,000 unit capsuleIndications:V itamin D deficiency Take 2 Capsules (2,000 units) [...] THAN 8 PILLS PER MONTH 05/31/2022 Active dextroamphetamine-am phetamine (AdderalL) 10 mg tabletIndications:De pression, unspecified depression type Take 1 Tablet (10 mg) by mouth 2 times daily at 7 AM and Noon. 180 Tablet 08/15/2023 Active buPROPion (WELLBUTRIN XL) 300 mg Extended-Release tabletIndications:De pression, unspecified depression type Take 1 Tablet (300 mg) by mouth once daily. 90 Tablet 3 08/15/2023 Active clonazePAM (KLONOPIN) 1 mg tabletIndications:Ge neralized anxiety disorder Take 1 Tablet (1 mg) by mouth 3 times daily if needed for Anxiety or Agitation (akathisia). 270 Tablet 1 08/15/2023 Active potassium chloride (K-RAO) 20 mEq packetIndications:Hy pokalemia Mix one packet with liquid and take by mouth every other day. 45 Packet 1 08/15/2023 Active cetirizine (ZYRTEC) 10 mg tabletIndications:Se asonal allergic rhinitis due to pollen Take 1 Tablet (10 mg) by mouth once daily if needed for Allergy Symptoms. 90 Tablet 08/15/2023 Active tiZANidine (ZANAFLEX) 2 mg tabletIndications:Ch ronic TMJ pain TAKE 1 TABLET BY MOUTH DAILY FOR MUSCLE TIGHTNESS IN JAW AND NECK. MAY TAKE 1 ADDITIONAL TABLET DAILY NEEDED FOR HEADACHE OR TMJ PAIN. 30 Tablet 1 08/15/2023 Active topiramate (TOPAMAX) 25 mg tabletIndications:Mi graine without status migrainosus, not intractable, unspecified migraine type 1 tablet daily with 100 mg tablet to make 125 mg daily 100 Tablet 3 08/15/2023 Active valACYclovir (VALTREX) 500 mg tabletIndications:HS V-1 (herpes simplex virus 1) infection Take 1 Tablet (500 mg) by mouth once daily. 90 Tablet 2 10/08/2023 Active brexpiprazole (Rexulti) 0.5 mg TabletIndications:De pression, unspecified depression type Take 1 Tablet (0.5 mg) by mouth once daily. 30 Tablet 2 10/21/2023 Active sennosides-docusate (SENOKOT S) (8.6-50 mg) tabletIndications:S/ P laparoscopic cholecystectomy Take 1 Tablet by mouth 2 times daily if needed for Constipation. 20 Tablet 08/15/2023 10/09/19 24 Discontinu ed(*Patien t states no longer taking) valACYclovir (VALTREX) 500 mg tabletIndications:HS V-1 (herpes simplex virus 1) infection Take 1 Tablet (500 mg) by mouth once daily. 90 Tablet 2 08/15/2023 10/08/19 24 Discontinu ed(*Availa bility/For mulary change/Cos t of medication ) Active Problems Problem Noted Date Diagnosed Date Chronic cholecystitis 07/23/2023 Persistent depressive disorder 05/16/2022 Steatosis 10/21/2021 Adenomatous polyp of colon 01/11/2020 Overview: Dec 2019- repeat 5 years. Prediabetes 12/30/2019 Overview: Dx Dec 2019. A1c 5.7 Esophageal dysmotility 04/27/2019 Overview: Nov 2018 swallow study: Esophageal dysmotility, Reflux Following with [facility] esophagus expert Dr. Sherman Chronic GERD 02/01/2019 Overview: Confirmed on endoscopy by GI. Ok to continue BID PPI> Actinic keratosis 02/02/2018 Overview: Derm exam with biopsies JAN 2018 and September 2018 TMJ (temporomandibular joint disorder) 8 Overview: Evaluated by ENT as well as TMJ specialist at [facility] 07/18/17. Depression, [...] 05/26/2012 Migraine headache 05/22/2012 Overview: Follows with [facility]. Liver disease 11/26/2011 Overview: Moderated steatohepatitis based on 2017 biopsies Autoimmune hepatitis mananged through [facility] (Dr Valero) Osteoarthritis 09/20/2011 Overview: Knees, feet, hands, neck. Not rheumatoid. HSV-1 (herpes simplex virus 1) infection 011 Overview: Takes Valtrex daily to prevent outbreak Degeneration of cervical intervertebral disc Overview: Has seen [facility] Sjogren's syndrome 04/26/2008 Overview: Follows with [facility] Dr Camacho every 6 months. Generalized anxiety disorder 2006 Selective IgA immunodeficiency Overview: Follows with [facility] Dr Camacho every 6 months. Fibromyalgia [...] Encounters Date Type Department Care Team Description 10/27/2023 Travel 10/22/2023 Nurse Triage [facility] [address] [place] [address] Hola Michael MD Headache 10/16/2023 Telephone [facility] [address] [place] [address] Radha Montgomery, ECHO TRANSESOPHAGEAL 10/09/2023 8:55 AM CDT Office Visit [facility] [address] [place] [address] Radha Montgomery, Hospital F/U (10/07/23 - headache - rule out stroke - continues to have mild headaches) 10/09/2023 8:00 AM CDT Office Visit [facility] [address] [place] [address] Jyotsna Rapp AuD Hearing Aid (MENEZES check) 10/09/2023 Travel 10/07/2023 Orders Only [facility] Scanner 1 scan: (1-Ord) [facility] MR HEAD/BRAIN WO/W CON, 10/07/2023 10/07/2023 Travel 10/06/2023 Orders Only [facility] Scanner 1 scan: (1-Ord) [facility], CT ANGIO HEAD, 10/06/2023 10/06/2023 Orders Only [facility] Scanner 1 scan: (1-Ord) NEFTALI, ANGIO NECK, 10/06/2023 10/06/2023 Orders Only [facility] Scanner 1 scan: (1-Ord) NEFTALI, HEAD, 10/06/2023 09/25/2023 1:30 PM CDT Telemedicine [facility] [address] [place] [address] Hola Michael MD Telehealth; Medication Management (Follow up) 09/23/2023 Telephone [facility] [address] [place] [address] Hola Michael MD ETTA (Release for [facility] for ANITRA Letter/) 09/21/2023 Travel 09/19/2023 11:30 AM CDT Ancillary Procedure [facility] [address] [place] [address] 09/19/2023 Telephone [facility] [address] [place] [address] Maria Luisa Gant MD Referral (stomach x-ray) 09/18/2023 1:00 PM CDT Telemedicine [facility] [address] [place] [address] Deepti Roberts PsyD, LP [facility] 09/18/2023 Travel 09/05/2023 2:30 PM CDT Telemedicine [facility] [address] [place] [address] Hola Michael MD Telehealth; Medication List Update (Not using Senokot) 09/03/2023 Travel 08/30/2023 2:05 PM CDT Office Visit [facility] [address] [place] [address] Lisa Mclean PA URI 08/30/2023 Travel 08/19/2023 Telephone [facility] [address] [place] [address] Oswald Pastor AuD Hearing Aid (Batteries) 08/07/2023 10:45 AM CDT Office Visit [facility] [address] [place] [address] Keyla Bryan PA Surgical Followup (GS S/P Lap Julieta) 08/06/2023 Travel 08/01/2023 2:30 PM CDT Telemedicine [facility] [address] [facility] [place] [address] Hola Michael MD Telehealth; Medication List Update 07/31/2023 Travel 07/29/2023 1:05 PM CDT Office Visit [facility] [address] [place] [address] Maria Luisa Gant MD Establish Care 07/29/2023 10:10 AM CDT Nurse/Clinic Staff Only [facility] [address] [place] [phone] Nurse, Yo Surgical Followup (07/23/23 ROBOTIC ASSISTED LAPAROSCOPIC CHOLECYSTECTOMY AND LYSIS OF ADHESIONS//) 07/29/2023 Travel 07/29/[address] [facility] [address] [place] [phone] Moises Bryant MD Surgical Followup from Last 3 Months Immunizations Name Administration [...] Sign Reading Time Taken Comments Blood Pressure 103/65 10/09/2023 9:00 AM CDT Pulse 71 10/09/2023 9:00 AM CDT Temperature 37.2 ??C (99 ??F) 08/30/2023 2:02 PM CDT Respiratory Rate 14 08/07/2023 11:03 AM CDT Oxygen Saturation 99% 10/09/2023 9:00 AM CDT Inhaled Oxygen Concentration - - Weight 64.5 kg (142 lb 4.8 oz) 10/09/2023 9:00 A M CDT Height 160 cm (5' 3) 08/07/2023 11:03 AM CDT Body Mass Index 25.21 08/07/2023 11:03 AM CDT Plan of Treatment Upcoming Encounters Date Type Department Care Team (Late st Contact Info) Description 10/28/2023 8:00 AM CDT Ancillary Procedure [facility] [address] [place] [address] 10/28/2023 12:10 PM CDT Phone Office Visit [facility] [address] [address] Medardo Escamilla DO [address] [facility] [address] [place] [address] Arrived 10/30/2023 1:00 PM CDT Office Visit [facility] [address] [place] [phone] Ashli Hernandez PA [address] [place] [address] 11/01/2023 11:00 AM CDT Telemedicine [address] [address] Hola Michael MD [address] [place] [address] 11/27/2023 2:00 PM CDT Telemedicine [facility] [address] [place] [address] Deepti Roberts PsyD, PÉREZ [address] [place], [place] [address] [address] 12/05/2023 10:30 AM CDT Telemedicine [address] [address] Hola Michael MD [address] [place] [address] 01/02/2024 10:30 AM CDT Telemedicine [address] [address] Hola Michael MD [address] [place] [address] 01/30/2024 2:00 PM CDT Telemedicine [address] [place] [address] Deepti Roberts PsyD, LP [address] [place] [address] 05/19/2024 11:00 AM CREEL CLEANER Office Visit [facility] [address] [facility] [address] [place] [address] Health Maintenance Due Date Last Done Comments Influenza for age 65+ 12/15/2023 01/14/2023 , 02/05/2022, 12/28/2020, Additional history exists Medicare Wellness for age 65+ 01/15/2024 01/14/2023, 10/18/2021, 12/28/2019, Additional history exists Mammogram for age 45-75 02/05/2024 02/05/20, 12/07/2021, 11/29/2020, Additional history exists BMI (ht and wt on same day) for age 18+ 08/06/2024 08/07/2023, 07/29/2023, 07/08/2023, Additional history exists Depression screening for age 12+ 09/24/2024 09/25/2023, 09/19/2023, 09/18/2023, Additional history exists Colonoscopy through age 75 01/03/202501/03, 07/07/2012 (Completed outside of [facility]) COVID-19 vaccine series (2022- season) 2025 02/04/2023, 02/05/2022, 07/25/2021, Additional history exists Postponed from 04/01/2023 (Other) Lipids for age 45-75 10/18/2026 10/18/2021, 10/19/2020, 01/05/2016, Additional history exists Tetanus booster 09/12/2027 09/11/2017, 05/16, 06/03/2006 (Completed outside of [facility]) Tdap Completed 06/03/2006 Hepatitis C screening for age 18-79 Completed 05/13/2013 Pneumococcal series for age 65+ Completed 12/24/2018, 02/19/2018, 01/13/2017, Additional history exists Zoster (shingles) series for age 50+ Completed 01/21/2019, 11/19/2018 DEXA/DXA scan for age 65+ Completed 2022, 02/16/2020, 01/20/2018, Additional history exists Procedures Procedure Name Priority Date/Time Associated Diagnosis Comments SCAN-MRI INTERPRETATION 10/07/2023 12:00 AM CDT SCAN-CT INTERPRETATION 4 12:00 AM CDT SCAN-CT INTERPRETATION 4 12:00 AM CDT SCAN-CT INTERPRETATION 4 12:00 AM CDT XR ABDOMEN 1 VIEW PAPITO 09/19/2023 11: 34 AM CDT Bloating Diarrhea, unspecified type XR DXA BONE DENSITY 2 SITES AXIAL Routine 02/04/2023 1:48 PM CDT Osteoporosis, unspecified osteoporosis type, unspecified pathological fracture presence XR MAMMO PHILLY BILAT SCREEN Routine 02/04/2023 1:18 PM CDT Visit for screening mammogram LIPID PANEL Routine 10/18/2021 2:30 PM CDT Medicare annual wellness visit, subsequent SCAN-COLONOSCOPY 01/04/2020 1:00 PM CDT ANTI HCV Routine 05/13/2013 10:35 AM CREEL CLEANER Need for hepatitis C screening test from Last 3 Months or Most Recently Relevant to Health Maintenance Results * SCAN-MRI INTERPRETATION (10/07/2023 12:00 AM CDT) Anatomical Region Laterality Modality Other Scanner OTHER * SCAN-CT INTERPRETATION (10/06/2023 12:00 AM CDT) Only the most recent of3 resultswithin the time period is included. Anatomical Region Laterality Modality Other Scanner OTHER * XR ABDOMEN 1 VIEW (09/19/2023 11:34 AM CDT) Anatomical Region Laterality Modality Abdomen Computed Radiogr aphy 09/19/2023 3:25 PM CDT Narrative 09/19/2023 3:25 PM CDT For Patients: ??As a result of the Century Cures Act, medical imaging exams and [...] Signed) Procedure Note Osmany Mccoy MD - 09/19/2023 For Patients: As a result of the [...] Signed) Sadie Santana NP GENERAL IMAGING * XR DXA BONE DENSITY 2 SITES [...] DXA BONE DENSITY 2 SITES AXIAL LOCATION: [facility] DATE: 02/04/2023 INDICATION: D. osteoporosis (must be [...] of the 21st Century Cures Act, medical imagingexams and procedure reports are released immediately into your electronicmedical record. You may view this report before your referring provider.If you have questions, please contact your health care provider. EXAM: XR DXA BONE DENSITY 2 SITES AXIAL LOCATION: [facility] DATE: 02/04/2023 INDICATION: D. osteoporosis (must be [...] For Patients: As a result of the Century Cures Act, medical imaging exams and procedure reports are released immediately into your electronic medical record. You may view this report before your referring provider. If you have questions, please contact your health care provider. XR MAMMO PHILLY BILAT SCREEN [[id number]] CLINICAL HISTORY: ??This is an asymptomatic 72 y.o. patient. INDICATION FOR EXAM: Mammogram Screening. TECHNIQUE: CC & MLO views were obtained. ??This study was evaluated with the assistance of Computer-Aided Detection. Breast Tomosynthesis was used in interpretation. COMPARISON FILM: [facility] FINDINGS: ??The breasts have scattered areas of fibroglandular density. There are no dominant masses, suspicious micro calcifications or areas of architectural distortion. Rafal Rodríguez MD MAMMO * (ABNORMAL) LIPID PANEL (10/18/2021 2:30 PM CDT) CHOLESTEROL,TOTAL 203(H) 100 - 199 mg/dL 10/18/2021 9:02 PM CDT [facility] TRIGLYCERIDES 73 <150 mg/dL 10/18/2021 9:[address] [facility] HDL CHOLESTEROL 75 >40 mg/dL 9:02 PM CDT [facility] NON-HDL CHOLESTEROL 128 <145 mg/dl 10/18/2021 9:[address] [facility] CHOL/HDL RATIO 2.71 <4.50 10/18/2021 9:02 PM CDT [facility] LDL CHOLESTEROL 113 <=130 mg/dL 10/18/2021 9:02 PM CDT [facility] VLDL CHOLESTEROL 15 <=30 mg/dL 10/18/2021 9:02 PM CDT [facility] PROVIDER ORDERED STATUS RANDOM 10/18/2021 9:02 PM CDT [facility] Blood BLOOD SPECIMEN / Unknown Venipuncture / Unknown 10/18/2021 2:30 PM CDT 10/18/2021 2:31 PM CDT Rafal Rodríguez MD CHEMISTRY [facility] [address] [place] [address], [place] * SCAN-COLONOSCOPY (01/04/2020 1:00 PM CDT) Narrative Procedure Note Nirmala Ellison MD - 01/04/2020 12:10 PM CDT [facility] [address], [address], [place] [address] Patient Name: Elizabeth Peñaloza Gender: Female Exam Date: 01/04/2020 Visit Number: [id number] Age: 69 Years Date of : 1950 Attending MD: Nirmala Ellison MD Medical Record#: [id number] Procedure: Colonoscopy Indications: Constipation Abdominal pain Family history of polyps in patient's mother. Age diagnosed: 50-59. Referring MD: Referral Self Primary MD: Rafal Rodríguez MD Medications: Admitting Medications: 0.9% Normal Saline at [facility] Intra Procedure Medications: Patient received monitored anesthesia [...] signed by: Osmani [place] [address] Orders Instruction(s)/Education: Instruction/Education Timeframe Assessment Colon Cancer [...] Nirmala Ellison MD OTHER * ANTI HCV [65160.2] (05/13/2013 10:35 AM CREEL CLEANER) ANTI HCV Non-reacti ve [facility] Blood specimen (specimen) BLOOD SPECIMEN / Unknown 05/13/2013 10:35 AM CREEL CLEANER 05/13/2013 10:32 AM CREEL CLEANER Drea Carrizales DO SEND OUTS [facility] INTERNAL ZIP [address] [place] [address] from Last 3 Months or Most Recently Relevant to Health Maintenance Advance Directives Documents on File Type Date Recorded Patient Joint Machine Operator Expl anation Healthcare Directive 07/23/2023 12:25 PM Healthcare Directive 05/05/2019 11:29 AM * Full Code (Latest Code Status on File) Date Activated Date Inactivated Comments 07/23/2023 12:39 PM 07/23/2023 8:20 PM Question Answer Comments Code Status Discussion: Reviewed Preferences Care Teams Sale Professional Digital Marketing Relationship Specialty Start Date End Date Maria Luisa Gant MD [address] [place] [address] PCP - General Family Practice 07/29/23 Tameka Barrow NP Rheumatology Nurse Practitioner 09/11/17 Larry Cole MD Neurology Neurology 09/11/17 Marcy Escobar RN [address] [place] [address] Registered Nurse 07/30/19 Hola Michael MD [address] [place] [address] Psychiatry Psychiatry 12/28/19 Sadie Santana NP [address] [place], [place] [id number] Gastroenterology Gastroenterology 12/28/19 Malika Cortes [facility] [address] [place] [id number] Production Gear Cutter 06/01/20 Medardo Escamilla DO [address] [facility] [address] [place] [address] Endocrinology 04/16/23
--- OUTSIDE RECORDS SUMMARY | 2023-10-28 07:39 | XMS_ITS | Referral Summary ---
Author Organization [facility] Address [address] [place] [address]. [place] [address] Care Team Providers Care Post Secondary Professional Name Role Phone Rafal Rodríguez MD Primary Care Provider [phone] Allergies Active Allergy Reactions Criticality Noted Date [...] 61.7 kg (136 lb) 05/22/2023 12:54 PM RETURNED TELEPHONE EQUIPMENT APPRAISER Height 160 cm (5' 3) 12/31/2022 3:04 PM CDT Body Mass Index 24.09 12/31/2022 3:04 PM CDT Plan of Treatment Not on file Procedures Procedure Name Priority Date/Time Associated Diagnosis Comments MA SCREENING BILATERAL W/ PHILLY Routine 02/04/2023 1:18 PM CDT COMPREHENSIVE METABOLIC PANEL STAT 12/31/2022 4:12 PM CDT TSH WITH FREE T4 REFLEX STAT 06/13/2020 2:39 PM RETURNED TELEPHONE EQUIPMENT APPRAISER Prolonged QT interval from Last 3 Months or Most Recently Relevant to Health Maintenance Results * (ABNORMAL) Comprehensive metabolic panel (12/31/2022 4:12 PM CDT) Sodium 145 136 - 145 mmol/L 12/31/2022 4:47 PM [facility] Potassium 3.8 3.4 - 5.3 mmol/L 12/31/2022 4:47 PM [facility] Chloride 111(H) 98 - 107 mmol/L 12/31/2022 4:47 PM [facility] Carbon Dioxide (CO2) 25 22 - 29 mmol/L 12/31/2022 4:47 PM [facility] Anion Gap 9 7 - 15 mmol/L 12/31/2022 4:47 PM [facility] Urea Nitrogen 7.5(L) 8.0 - 23.0 mg/dL 12/31/2022 4:47 PM [facility] Creatinine 1.09(H) 0.51 - 0.95 mg/dL 12/31/2022 4:47 PM [facility] Calcium 9.6 8.8 - 10.2 mg/dL 12/31/2022 4:47 PM [facility] Glucose 83 70 - 99 mg/dL 12/31/2022 4:47 PM [facility] Alkaline Phosphatase 70 35 - 104 U/L 12/31/2022 4:47 PM [facility] AST 27 0 - 45 U/L 12/31/2022 4:47 PM [facility] Comment:Reference intervals for this test were updated on 09/24/2022 to more accurately reflect our healthy population. There may be differences in the flagging of prior results with similar values performed with this method. Interpretation of those prior results can be made in the context of the updated reference intervals. ALT 12 0 - 50 U/L 12/31/2022 4:47 PM [facility] Comment:Reference intervals for this test were updated on 09/24/2022 to more accurately reflect our healthy population. There may be differences in the flagging of prior results with similar values performed with this method. Interpretation of those prior results can be made in the context of the updated reference intervals. Protein Total 7.1 6.4 - 8.3 g/dL 12/31/2022 4:47 PM CDT [facility] Albumin 4.6 3.5 - 5.2 g/dL 12/31/2022 4:47 PM T [facility] Bilirubin Total 0.3 <=1.2 mg/dL 12/31/2022 4:47 PM T [facility] GFR Estimate 54(L) >60 mL/min/1. 73m2 12/31/2022 4:47 PM CDT [facility] Blood VENOUS LINE / Unknown Venipuncture / Unknown 12/31/2022 4:12 PM CDT 12/31/2022 4:15 PM CDT Natacha De Oliveira MD LAB - BLOOD ORDERABL ES Performing Organization Address City/[facility]/ZIP Co de Phone Number [facility] [address] [phone] * TSH with free T4 reflex (06/13/2020 2:39 PM RETURNED TELEPHONE EQUIPMENT APPRAISER) TSH 0.46 0.40 - 4.00 mU/L 06/13/2020 3:52 PM RETURNED TELEPHONE EQUIPMENT APPRAISER [facility] Blood specimen (specimen) 06/13/2020 2:39 PM RETURNED TELEPHONE EQUIPMENT APPRAISER 06/13/2020 3:06 PM RETURNED TELEPHONE EQUIPMENT APPRAISER Rivera Allen MD LAB - BLOOD ORDERABL ES Performing Organization Address City/[facility]/ZIP Co de Phone Number [facility] [address] [facility] [place] [address], [facility] [phone] from Last 3 Months or Most Recently Relevant to Health Maintenance Advance Directives For more information, please contact: [phone] Documents on File Type Date Recorded Patient Carpenter Mate Expl anation Advance Directives and Living Will [...] sen nt/ legal decision maker Care Teams Post Secondary Professional Relationship Specialty Start Date End Date Rafal Rodríguez MD PCP - General 10/26/18
== END 2023-10-28 07:35 | disposition home or self-care (01) ==
LOC: RAD 07:36
PROVIDERS: PCP Family Medicine; Visit Provider Family Medicine
DX: G45.9 Transient cerebral ischemic attack, unspecified (principal); I34.0 Nonrheumatic mitral (valve) insufficiency
CPT/HCPCS: 93306

== ENCOUNTER 2024-02-18 07:43 | Outpatient (CLI) | payer MEDICARE, SELFPAY ==
--- OUTSIDE RECORDS SUMMARY | 2024-02-18 07:47 | XMS_ITS | Clinical Summary ---
Author Organization [facility] Address [place], [place] [address] Care Team Providers Care Sales Development Coordinator Name Role Phone Tameka Barrow [employer] Unavailable [phone] Larry Cole MD Unavailable Hola Michael MD Unavailable Sadie Santana [employer] Unavailable [phone] Malika Cortes ANATOMY TEACHER Unavailable Medardo Escamilla DO Unavailable [phone] Maria Luisa Gant MD Primary Care Provider [...] capsule twice a day. 0 02/16/2019 Active AMITIZA 24 mcg capsule 12/17/2019 Active metoclopramide HCl (REGLAN) 10 mg tablet Take 10 mg by mouth. 05/18/2020 Active cholecalciferol (Vitamin D) 1,000 unit capsuleIndications: Vitamin D deficiency Take 2 Capsules (2,000 units) by mouth once daily. 180 Capsule 3 03/02/2021 Active acetaminophen (TYLENOL EXTRA STRGTH) 500 mg tablet MAY TAKE 1-2 TABLETS BY MOUTH EVERY 4-6 HOURS NEEDED FOR PAIN 03/14/2021 Active topiramate (TOPAMAX) 100 mg tablet Take 100 mg by mouth at bedtime. 06/06/2022 Active buPROPion (WELLBUTRIN XL) 300 mg Extended-Release tabletIndications:D epression, unspecified depression type Take 1 Tablet (300 mg) by mouth once daily. 90 Tablet 3 08/15/2023 Active cetirizine (ZYRTEC) 10 mg tabletIndications:S easonal allergic rhinitis due to pollen Take 1 Tablet (10 mg) by mouth once daily if needed for Allergy Symptoms. 90 Tablet 08/15/2023 Active topiramate (TOPAMAX) 25 mg tabletIndications:M igraine without status migrainosus, not intractable, unspecified migraine type 1 tablet daily with 100 mg tablet to make 125 mg daily 100 Tablet 3 08/15/2023 Active fluvoxaMINE 25 mg tabletIndications:A nxiety Take 2 Tablets (50 mg) by mouth at bedtime. 60 Tablet 5 01/02/2024 Active clonazePAM (KLONOPIN) 1 mg tabletIndications:G eneralized anxiety disorder Take 1 Tablet (1 mg) by mouth 3 times daily if needed for Anxiety or Agitation (akathisia). 270 Tablet 1 01/02/2024 Active dextroamphetamine-a mphetamine (AdderalL) 10 mg tabletIndications:D epression, unspecified depression type Take 1 Tablet (10 mg) by mouth 2 times daily at 7 AM and Noon. 180 Tablet 01/02/2024 Active tiZANidine (ZANAFLEX) 2 mg tabletIndications:C hronic TMJ pain TAKE 1 TABLET BY MOUTH DAILY FOR MUSCLE TIGHTNESS IN JAW AND NECK. MAY TAKE 1 ADDITIONAL TABLET DAILY NEEDED FOR HEADACHE OR TMJ PAIN. 30 Tablet 1 01/16/2024 Active valACYclovir (VALTREX) 500 mg tabletIndications:H SV-1 (herpes simplex virus 1) infection Take 1 Tablet (500 mg) by mouth once daily. 100 Tablet 3 01/16/2024 Active potassium chloride (K-RAO) 20 mEq packetIndications:H ypokalemia Mix one packet with liquid and take by mouth every other day. 45 Packet 3 01/17/2024 Active Active Problems Problem Noted Date Diagnosed Date Chronic cholecystitis 07/23/2023 Persistent depressive disorder 05/16/2022 Steatosis 10/21/2021 Adenomatous polyp of colon 01/11/2020 Overview (01/11/2020): Dec 2019- repeat 5 years. Prediabetes 12/30/2019 Overview (12/30/2019): Dx Dec 2019. A1c 5.7 Esophageal dysmotility 04/27/2019 Overview (04/27/2019): Nov 2018 swallow study: Esophageal dysmotility, Reflux Following with [facility] esophagus expert Dr. Sherman Chronic GERD 02/01/2019 Overview (02/01/2019): Confirmed on endoscopy by GI. Ok to continue BID PPI> Actinic keratosis 02/02/2018 Overview (09/23/2018): Derm exam with biopsies JAN 2018 and September 2018 TMJ (temporomandibular joint disorder) 8 Overview (07/21/2017): Evaluated by ENT as well as TMJ specialist at [facility] 07/18/17. Depression, major, recurrent, mild 04/01/2017 Panic disorder without agoraphobia 05/08/2016 Sensorineural hearing loss, bilateral 08/30/2014 Overview (10/18/2021): Has hearing aids Osteoporosis 06/02/2013 Overview (02/13/2023): Dx 2013: started Reclast sometime after that. [...] review given hx. Chronic Pain Syndrome: effec ts mental health and is exacerbated by M.H. 05/26/2012 Migraine headache 05/22/2012 Overview (11/05/2017): Follows with [facility]. Liver disease 11/26/2011 Overview (11/19/2018): Moderated steatohepatitis based on 2017 biopsies Autoimmune hepatitis mananged through [facility] (Dr Valero) Osteoarthritis 09/20/2011 Overview (11/19/2018): Knees, feet, hands, neck. Not rheumatoid. HSV-1 (herpes simplex virus 1) infection 011 Overview (11/19/2018): Takes Valtrex daily to prevent outbreak Degeneration of cervical intervertebral disc Overview (11/17/2018): Has seen [facility] Spine Sjogren's syndrome 04/26/2008 Overview (11/19/2018): Follows with [facility] Dr Camacho every 6 months. Generalized anxiety disorder 2006 Selective IgA immunodeficiency Overview (11/19/2018): Follows with [facility] Dr Camacho every 6 months. Fibromyalgia Resolved Problems Problem Noted Date Diagnosed Date Resolved Date Protein-calorie malnutrition , unspecified severity 10/21/2021 06/24/2023 Dysthymic disorder 10/15/2014 6 CRPS (complex regional pain syndrome), lower limb 03/02/2014 04/30/2014 Overview (03/31/2014): EMG Right lower extremity Nov 2013: Normal. Anemia 06/25/2013 11/20/2013 Generalized anxiety disorder 11/19/2012 11/19/2012 Rule out Panic disorder without agoraphobia 05/26/2012 07/09/2014 Major depressive disorder in partial remission 09/20/2011 04/01/2017 Shoulder impingement syndrome 09/17/2011 04/27/2019 Mild right patellofemoral osteoarthritis 09/17/2011 09/20/2011 Headache(784.0) 09/17/2011 05/22/2012 Adjustment disorder with depressed mood 2006 09/20/2011 Encounters Date Type Department Care Team Description 02/14/2024 2:00 PM CDT Telemedicine [facility] [address] [place] [address] Rafal Guerrero, [facility] Mental Health Consultants Visit; Telehealth 02/13/2024 1:00 PM CDT Telemedicine [facility] [address] [place] [address] Hola Michael MD Medication Management; Telehealth 02/13/2024 Telephone [facility] [address] [place] [address] Hola Michael MD Appointment 02/10/2024 Travel 02/07/2024 12:00 PM CDT - 02/07/2024 11:59 PM CDT Hospital Encounter [facility] [address] [place] [address] 02/07/2024 Telephone [facility] [address] [place] [address] Marycruz Rodas, [facility] 02/06/2024 1:00 PM CDT Ancillary Procedure [facility] [address] [place] [address] 02/06/2024 Travel 02/05/2024 Telephone [facility] [address] [place] [address] Marycruz Rodas [facility] 02/02/2024 Travel 01/31/2024 Telephone [facility] [address] [place] [address] Leola Be [facility] Appointment 01/29/2024 8:58 AM CDT - 01/29/2024 11:59 PM CDT Hospital Encounter [facility] [address] [place] [address] Marycruz Rodas [facility] Persistent depressive disorder; Generalized anxiety disorder 01/27/[address] [place] [address] Marycruz Rodas LICSW 01/24/2024 9:00 AM CDT - 01/24/2024 11:59 PM CDT Hospital Encounter [address] [place] [address] Marycruz Rodas LICSW Persistent depressive disorder; Generalized anxiety disorder 01/23/2024 2:00 PM CDT Telemedicine [facility] [address] [place] [address] Rafal Guerrero [facility] Mental [facility] Consultants Visit; Telehealth 01/22/2024 9:00 AM CDT - 01/22/2024 11:59 PM CDT Hospital Encounter [address] [place] [address] Marycruz Rodas [facility] Persistent depressive disorder; Generalized anxiety disorder 01/20/2024 9:00 AM CDT - 01/20/2024 11:59 PM CDT Hospital Encounter [address] [place] [address] Marycruz Rodas LICSW Persistent depressive disorder; Generalized anxiety disorder 01/18/2024 Travel 01/17/2024 8:59 AM CDT - 01/17/2024 11:59 PM CDT Hospital Encounter [address] [place] [address] Marycruz Rodas [employer]AT[employer]Y TEACHER Persistent depressive disorder; Generalized anxiety disorder 01/17/2024 Telephone [facility] [address] [place] [address] Maria Luisa Gant MD Medication Management (potassium chloride (K-RAO) 20 mEq packet) 01/16/2024 8:20 AM CDT Office Visit [facility] [address] [place] [address] Maria Luisa Gant MD Medicare ANNUAL (subsequent) Visit (73 Year Old female); Lab (Wanting regular testing Liver, glucose); Immunization/Inject ion 01/16/2024 Telephone [facility] [address] [place], [place] [id number] Maria Luisa Gant MD Infusion Therapy 01/16/2024 Travel 01/15/2024 11:54 AM CDT - 01/15/2024 11:59 PM CDT Hospital Encounter [facility] [address] [place] [address] 01/15/2024 9:00 AM CDT - 01/15/2024 11:53 AM CDT Hospital Encounter [facility] [address] [facility] [address] [facility] [place] [address] Marycruz Rodas LICSW Persistent depressive disorder; Generalized anxiety disorder 01/12/2024 Travel 01/10/2024 9:00 AM CDT - 01/10/2024 11:59 PM CDT Hospital Encounter [facility] [address] [facility] [address] [place] [address] Marycruz Rodas LICSW Persistent depressive disorder; Generalized anxiety disorder 01/09/2024 Telephone [facility] [address] [facility] [address] [place] [address] Marycruz Rodas LICSW 01/08/2024 Telephone [facility] [address] [place] [address] Hola Michael MD Medication Management (medication ) 01/08/2024 Telephone [facility] [address] [place] [address] Marycruz Rodas LICSW 01/03/2024 Telephone [facility] [address] [place] [address] Marycruz Rodas LICSW 01/03/2024 Telephone [facility] [address] [facility] [address] [place] [address] Marsha Fisher 01/02/2024 10:00 AM CDT Telemedicine [facility] [address] [place] [address] Hola Michael MD Telehealth; Medication Management; Follow Up 01/01/2024 Telephone [facility] [address] [place] [address] Neo Aguilar 12/30/2023 9:00 AM CDT - 12/30/2023 11:59 PM CDT Hospital Encounter [facility] [address] [facility] [address] [place] [address] Marycruz Rodas LICSW Persistent depressive disorder; Generalized anxiety disorder 12/29/2023 Travel 12/27/2023 9:00 AM CDT - 12/27/2023 11:59 PM CDT Hospital Encounter [address] [place] [address] Marycruz Rodas LICSW Persistent depressive disorder; Generalized anxiety disorder 12/26/2023 8:30 AM CDT Telemedicine [facility] [address] [place] [address] Rafal Guerrero [facility] Mental Health Consultants Visit; Telehealth 12/25/2023 8:57 AM CDT - 12/25/2023 11:59 PM CDT Hospital Encounter [address] [place] [address] Marycruz Rodas LICSW Persistent depressive disorder; Generalized anxiety disorder 12/24/2023 11:30 AM CDT Office Visit [facility] [address] [place] [address] Jyotsna Rapp AuD Hearing Aid (MENEZES check) 12/24/2023 Travel 12/23/2023 12:00 PM CDT Telemedicine [facility] [address] [place] [address] Hola Michael MD Telehealth; Medication Management 12/23/2023 9:00 AM CDT - 12/23/2023 11:59 PM CDT Hospital Encounter [facility] [address] [facility] [place] [address] Marycruz Rodas LICSW Persistent depressive disorder; Generalized anxiety disorder 12/23/2023 Telephone [facility] [address] [place] [address] Hola Michael MD Medication Problem (fluvoxaMINE 25 mg tablet ) 12/21/2023 Travel 12/20/2023 9:00 AM CDT - 12/20/2023 11:59 PM CDT Hospital Encounter [facility] [address] [facility] [address] [place] [address] Marycruz Rodas LICSW Persistent depressive disorder; Generalized anxiety disorder 12/19/2023 Telephone [facility] [address] [place] [address] Maria Luisa Gant MD Referral (INTEGRATIVE MEDICINE ) 12/18/2023 9:00 AM CDT - 12/18/2023 11:59 PM CDT Hospital Encounter [address] [place] [address] Marycruz Rodas LICSW Persistent depressive disorder; Generalized anxiety disorder 12/17/2023 Telephone [facility] [address] [place] [address] Deepti Roberts PsyD, LP Questions (Group Therapy ) 12/13/2023 Telephone [facility] [address] [facility] [address] [place] [address] Neo Aguilar 12/13/2023 Telephone [facility] [address] [place] [address] Hola Michael MD Questions (group meetings/therapist) 12/12/2023 Telephone [facility] [address] [place] [address] Jyotsna Rapp AuD Questions (HEARING AIDS) 12/11/2023 8:58 AM CDT - 12/11/2023 11:59 PM CDT Hospital Encounter [facility] [address] [facility] [address] [place] [address] Marycruz Rodas LICSW Persistent depressive disorder; Generalized anxiety disorder 12/11/2023 Telephone [facility] [address] [place] [address] Jyotsna aRpp AuD Appointment 12/11/[address] [place] [address] Marycruz Rodas LICSW 12/09/2023 9:00 AM CDT - 12/09/2023 11:59 PM CDT Hospital Encounter [facility] [address] [facility] [address] [place] [address] Marycruz Rodas LICSW Persistent depressive disorder; Generalized anxiety disorder 12/05/2023 1:00 PM CDT - 12/05/2023 11:59 PM CDT Hospital Encounter [facility] [address] [facility] [address] [place] [address] Deepti Roberts PsyD, LP Persistent depressive disorder; Generalized anxiety disorder 12/05/2023 10:30 AM CDT Telemedicine [facility] [address] [place] [address] Hola Michael MD Medication Management; Follow Up; Telehealth 12/05/2023 Orders Only [facility] [address] [facility] [address] [place] [address] Marycruz Rodas LICSW <No scans attached> 12/04/2023 Travel 12/04/2023 Telephone [facility] [address] [place] [address] Jyotsna Rapp, Mylene Questions (BATTERY FOR EARING AID ) 12/03/2023 Telephone [facility] [address] [facility] [address] [place] [address] Marycruz Rodas LICSW 12/02/2023 Telephone [facility] [address] [facility] [address] [place] [address] Neo Aguilar 11/28/2023 Telephone [facility] [address] [place] [address] Danie Pena, LEDY Referral 11/27/2023 2:00 PM CDT Telemedicine [facility] [address] [place] [address] Deepti Roberts PsyD, LP Telehealth 11/26/2023 Travel 11/21/2023 Patient Outreach [facility] [address] [place] [address] Marcy Escobar, RN Focused Care Management from Last 3 Months Immunizations Name Administration Dates Next Due AMB Influenza, IIV3 (Age >=3 years)(Flu Clinic Only) 12/29/2012 AMB Influenza, IIV4 PF (=>6 mos Flulaval,Fluzone Fluarix)(Flu Clinic Only) 01/05/2014 COVID-19 VACCINE SPIKEVAX (M ODERNA 50MCG/0.5ML) 12YO+ PFS 01/16/2024 COVID-19 vaccine (Pfizer-Bio NTech 30mcg/0.3mL) 12YO+ BIVALENT [...] Inactivated IIV3 (Age 65+ Years) Preserv Free 01/16/2024,12/24/2018,01/01/2018,2016 Pneumococcal Poly,23-Valent (Pneumovax) 02/19/2018 Pneumococcal conj 13-Valent [...] Answer Date Recorded PHQ-2 TOTAL SCORE 6 02/12/2024 Social Connections Answer Date Recorded Do you often feel lonely or isolated from those around you? 4 04/10/2023 Financial Resource Strain Answer Date R ecorded Difficulty of Paying Living Expenses 3 04/10/2023 Difficulty of Paying Living Expenses Not on file 04/10/2023 Food Insecurity Answer Date Recorded Do you worry your food will run out before you are able to buy more? 1 04/10/2023 Transportation Needs Answer Date Record ed Does lack of transportation keep you from medica l appointments? 1 04/10/2023 Does lack of transportation keep you from work, meetings or getting things that you need? 2 04/10/2023 Housing Stability Answer Date Recorded What is your housing situation today? 2 04/10/2023 Sex and Gender Information Value [...] Sign Reading Time Taken Comments Blood Pressure 100/60 01/16/2024 8:18 AM CDT Pulse 72 01/16/2024 8:18 AM CDT Temperature 37.2 ??C (99 ??F) 08/30/2023 2:02 PM CDT Respiratory Rate 14 08/07/2023 11:03 AM CDT Oxygen Saturation 99% 01/16/2024 8:18 AM CDT Inhaled Oxygen Concentration - - Weight 65.3 kg (144 lb) 01/16/2024 8:18 AM CDT Height 161.5 cm (5' 3.58) 01/16/2024 8:18 AM CD T Body Mass Index 25.04 01/16/2024 8:18 AM CDT Plan of Treatment Upcoming Encounters Date Type Department Care Team (Late st Contact Info) Description 02/27/2024 11:15 AM [facility] Telemedicine [facility] [address] [place] [address] Maria Luisa Castañeda, PhD, LP [address] [place] [address] 02/27/2024 1:30 PM [facility] Telemedicine [address] [address] Hola Michael MD [address] [place] [address] 03/26/2024 1:30 PM [facility] Telemedicine [address] [address] Hola Michael MD [address] [place] [address] 05/06/2024 1:30 PM [facility] Telemedicine [address] [address] Hola Michael MD [address] [place] [address] 06/03/2024 1:30 PM [facility] Telemedicine [address] [address] Hola Michael MD [address] [place] [address] 07/13/2024 11:00 AM CDT Office Visit [facility] [address] [place] [address] Savanna Shabazz PA [address] [place] [address] Health Maintenance Due Date Last Done Comments COVID-19 vaccine series (2023- season) 2024 01/16/2024, 02/04/2023, 02/05/2022, Additional history exists Colonoscopy through age 75 01/03/202501/03, 07/07/2012 (Completed outside of [facility]) BMI (ht and wt on same day) for age 18+ 01/15/2025 01/16/2024, 08/07/2023, 07/29/2023, Additional history exists Medicare Wellness for age 65+ 01/16/2025, 01/14/2023, 10/18/2021, Additional history exists Mammogram for age 45-75 02/05/2025 02/06/20, 02/04/2023, 12/07/2021, Additional history exists Depression screening for age 12+ 02/13/2025 02/14/2024, 02/13/2024, 02/13/2024, Additional history exists Tetanus booster 09/12/2027 09/11/2017, 05/16, 06/03/2006 (Completed outside of [facility]) Lipids for age 45-75 01/15/2029 01/16/2024, 10/18/2021, 10/19/2020, Additional history exists Tdap Completed 06/03/2006 Hepatitis C screening for ag e 18-79 Completed 05/13/2013 Pneumococcal series for age 65+ Completed 12/24/2018, 02/19/2018, 01/13/2017, Additional history exists Zoster (shingles) series for age 50+ Completed 01/21/2019, 11/19/2018 DEXA/DXA scan for age 65+ Completed 2022, 02/16/2020, 01/20/2018, Additional history exists Influenza for age 65+ Completed 01/16/2024 , 01/14/2023, 02/05/2022, Additional history exists Procedures Procedure Name Priority Date/Time Associated Diagnosis Comments XR MAMMO PHILLY BILAT SCREEN Routine 02/06/2024 1:15 PM CDT Visit for screening mammogram COMP METABOLIC PANEL Routine 01/16/2024 9:27 AM CDT Steatosis (HC) HEMOGLOBIN A1C Routine 01/16/2024 9:27 AM CDT Screening for diabetes mellitus (DM) LIPID PANEL W REFLEX MEASURED LDL Routine 01/16/2024 9:27 AM CDT Lipid screening XR DXA BONE DENSITY 2 SITES AXIAL Routine 02/04/2023 1:48 PM CDT Osteoporosis, unspecified osteoporosis type, unspecified pathological fracture presence SCAN-COLONOSCOPY 01/04/2020 1:00 PM CDT ANTI HCV Routine 05/13/2013 10:35 AM [facility] Need for hepatitis C screening test from Last 3 Months or Most Recently Relevant to Health Maintenance Results * XR MAMMO PHILLY BILAT SCREEN (02/06/2024 1:15 PM CDT) Anatomical Region Laterality Modality BREASTS, Breast Left, Breast Right Bilateral Mammography Impressions 02/10/2024 2:02 PM CDT ??There is no radiographic evidence for malignancy. ??Recommend annual mammograms. MAMMOGRAM ASSESSMENT: ??ACR 1 Negative PATIENTS: You will also receive a letter with your examination results in an easy to read format. ??If you have questions about your results, please contact your referring provider. Narrative 02/10/2024 2:02 PM CDT For Patients: As a result of the 21st Century Cures Act, medical imaging exams and procedure reports are released immediately into your electronic medical record. You may view this report before your referring provider. If you have questions, please contact your health care provider. XR MAMMO PHILLY BILAT SCREEN [[id number]] CLINICAL HISTORY: ??This is an asymptomatic 73 y.o. patient. INDICATION FOR EXAM: Mammogram Screening. TECHNIQUE: CC & MLO views were obtained. ??This study was evaluated with the assistance of Computer-Aided Detection. Breast Tomosynthesis was used in interpretation. COMPARISON FILM: Yes 02/04/23 [facility] 12/07/21 [facility] FINDINGS: ??There are scattered areas of fibroglandular density. There are no dominant masses, suspicious micro calcifications or areas of architectural distortion. Maria Luisa Gant MD MAMMO * (ABNORMAL) HEMOGLOBIN A1C (01/16/2024 9:27 AM CDT) HEMOGLOBIN A1C 6.0(H) <5.7 % of total Hgb [facility] Comment: For someone without known diabetes, a hemoglobin A1c value between 5.7% and 6.4% is consistent with prediabetes and should be confirmed with a follow-up test. For someone with known diabetes, a value <7% indicates that their diabetes is well controlled. A1c targets should be individualized based on duration of diabetes, age, comorbid conditions, and other considerations. This assay result is consistent with an increased risk of diabetes. Currently, no consensus exists regarding use of hemoglobin A1c for diagnosis of diabetes for children. Blood BLOOD SPECIMEN / Unknown 01/16/2024 9:27 AM CDT 01/16/2024 9:28 AM CDT Narrative [facility] - 01/17/2024 4:08 AM CDT PATIENT DOES HAVE INS COULDN'T GET IT TO ENTER SO I SCANNED FASTING:UNKNOWN FASTING: UNKNOWN Maria Luisa Gant MD CHEMISTRY [facility] [address] [place] [address], [facility] [address] [place] [address] * (ABNORMAL) LIPID PANEL W REFLEX MEASURED LDL (01/16/2024 9:27 AM CDT) CHOLESTEROL, TOTAL 202(H) <200 mg/dL [facility] HDL CHOLESTEROL 66 > OR = 50 mg/dL [facility] TRIGLYCERIDES 114 <150 mg/dL [facility] LDL-CHOLESTEROL 114(H) mg/dL (calc) [facility] Comment: Reference range: <100 Desirable range <100 mg/dL for primary prevention; ?? <70 mg/dL for patients with CHD or diabetic patients with > or = 2 CHD risk factors. LDL-C is now calculated using the Sofy calculation, which is a validated novel method providing better accuracy than the Friedewald equation in the estimation of LDL-C. Jaime HERNADEZ et al. ZAID. 2013;310(19): 3210-7493 (http://education.[employer]faq/LKS621) CHOL/HDLC RATIO 3.1 <5.0 (calc) [facility] NON HDL CHOLESTEROL 136(H) <130 mg/dL (calc) [facility] Comment: For patients with diabetes plus 1 major ASCVD risk factor, treating to a non-HDL-C goal of <100 mg/dL (LDL-C of <70 mg/dL) is considered a therapeutic option. Blood BLOOD SPECIMEN / Unknown 01/16/2024 9:27 AM CDT 01/16/2024 9:28 AM CDT Narrative [facility] - 01/17/2024 4:39 AM CDT PATIENT DOES HAVE INS COULDN'T GET IT TO ENTER SO I SCANNED FASTING:UNKNOWN FASTING: UNKNOWN Maria Luisa Gant MD CHEMISTRY [facility] [address] [place] [address], [facility] [address] [place] [address] * (ABNORMAL) COMP METABOLIC PANEL (01/16/2024 9:27 AM CDT) [facility] GLUCOSE 108(H) 65 - 99 mg/dL [facility] Comment: ? Fasting reference interval For someone without known diabetes, a glucose value between 100 and 125 mg/dL is consistent with prediabetes and should be confirmed with a follow-up test. UREA NITROGEN (BUN) 12 7 - 25 mg/dL [facility] [facility] CREATININE 1.15(H) 0.60 - 1.00 mg/dL [facility] EGFR 51(L) > OR = 60 mL/min/1.7 3m2 [facility] BUN/CREATININE RATIO 10 6 - 22 (calc) [facility] SODIUM 140 135 - 146 mmol/L [facility] POTASSIUM 4.0 3.5 - 5.3 mmol/L [facility] CHLORIDE 107 98 - 110 mmol/L [facility] CARBON DIOXIDE 27 20 - 32 mmol/L [facility] CALCIUM 9.3 8.6 - 10.4 mg/dL [facility] PROTEIN, TOTAL 6.6 6.1 - 8.1 g/dL [facility] ALBUMIN 4.2 3.6 - 5.1 g/dL [facility] GLOBULIN 2.4 1.9 - 3.7 g/dL (calc) [facility] ALBUMIN/GLOBULIN RATIO 1.8 1.0 - 2.5 (calc) [facility] BILIRUBIN, TOTAL 0.3 0.2 - 1.2 mg/dL [facility] ALKALINE PHOSPHATASE 60 37 - 153 U/L [facility] AST 19 10 - 35 U/L [facility] ALT 12 6 - 29 U/L [facility] Blood BLOOD SPECIMEN / Unknown 01/16/2024 9:27 AM CDT 01/16/2024 9:28 AM CDT Narrative [facility] - 01/17/2024 4:39 AM CDT PATIENT DOES HAVE INS COULDN'T GET IT TO ENTER SO I SCANNED FASTING:UNKNOWN FASTING: UNKNOWN Maria Luisa Gant MD CHEMISTRY [facility] [address] [place] [address], [facility] [facility] [address] [place] [address] * XR DXA BONE DENSITY 2 SITES [...] DXA BONE DENSITY 2 SITES AXIAL LOCATION: [facility] DATE: 02/04/2023 INDICATION: D. osteoporosis (must be [...] DXA BONE DENSITY 2 SITES AXIAL LOCATION: [facility] DATE: 02/04/2023 INDICATION: D. osteoporosis (must be [...] in T-score. Rafal Rodríguez MD DEXA * SCAN-COLONOSCOPY (01/04/2020 1:00 PM CDT) Narrative Procedure Note Nirmala Ellison MD - 01/04/2020 12:10 PM CDT [facility] [address] [place] [address], [address], [place] [address] Patient Name: Elizabeth Peñaloza Gender: Female Exam Date: 01/04/2020 Visit Number: [id number] Age: 69 Years Date of : 1950 Attending MD: Nirmala Ellison MD Medical Record#: [id number] Procedure: Colonoscopy Indications: Constipation Abdominal pain Family history of polyps in patient's mother. Age diagnosed: 50-59. Referring MD: Referral Self Primary MD: Rafal Rodríguez MD Medications: Admitting Medications: 0.9% Normal Saline at TKO Intra Procedure Medications: Patient received monitored anesthesia [...] signed by: Osmani [place] [address] Orders Instruction(s)/Education: Instruction/Education Timeframe Assessment Colon Cancer [...] Nirmala Ellison MD OTHER * ANTI HCV [55143.2] (05/13/2013 10:35 AM [facility]) ANTI HCV Non-reacti ve [facility] Blood specimen (specimen) BLOOD SPECIMEN / Unknown 05/13/2013 10:35 AM [facility] HAND 05/13/2013 10:32 AM [facility] Drea Carrizales DO SEND OUTS [facility] INTERNAL ZIP [address] [place] [phone] from Last 3 Months or Most Recently Relevant to Health Maintenance Advance Directives Documents on File Type Date Recorded Patient Homeowner Association Manager Expl anation Healthcare Directive 07/23/2023 12:25 PM Healthcare Directive 05/05/2019 11:29 AM * Full Code (Latest Code Status on File) Date Activated Date Inactivated Comments 07/23/2023 12:39 PM 07/23/2023 8:20 PM Question Answer Comments Code Status Discussion: Reviewed Preferences Care Teams Sales Development Coordinator Relationship Specialty Start Date End Date Maria Luisa Gant MD [address] [place] [address] PCP - General Family Practice 07/29/23 Tameka Barrow, RAHEL Rheumatology Nurse Practitioner 09/11/17 Larry Cole MD Neurology Neurology 09/11/17 Hola Michael MD [address] [place], [place] [id number] Psychiatry Psychiatry 12/28/19 Sadie Santana, RAHEL [address] [place], [place] [id number] Gastroenterology Gastroenterology 12/28/19 Malika Cortes LICSW [address] [place] [address] Second Officer 06/01/20 Medardo Escamilla DO [address] [facility] [address] [place] [address] Endocrinology 04/16/23
--- OUTSIDE RECORDS SUMMARY | 2024-02-18 07:48 | XMS_ITS | Referral Summary ---
Author Organization [place] Address [address] [place] [address]. [place] [address] Care Team Providers Care Auto Radiator Mechanic Name Role Phone Rafal Rodríguez MD Primary Care Provider [phone] Allergies Active Allergy Reactions Criticality Noted Date Comments Amitriptyline 09/20/2014 Amoxicillin-Pot Clavulanate GI Disturbance 11/2014 Codeine 09/20/2014 Duloxetine Hcl 09/20/2014 Fentanyl 09/20/2014 Nitrofurantoin 09/20/2014 Ondansetron 09/20/2014 Medications Cholecalciferol (VITAMIN D3 PO) Take 4,000 Units by mouth every evening Active clonazePAM (KLONOPIN) 0.5 MG tablet Take 0.5 mg by mouth 3 times daily as needed for anxiety Active Multiple Vitamins-Minera ls (MULTIVITAMIN PO) Take by mouth daily Active polyethylene glycol (MIRALAX/GLYCOL AX) powder Take 17 g by mouth daily as needed Active valACYclovir (VALTREX) 500 MG tablet Take 500 mg by mouth At Bedtime Active cycloSPORINE (RESTASIS) 0.05 % ophthalmic emulsion Place 1 drop into both eyes At Bedtime Active levothyroxine (SYNTHROID/LEVO THROID) 25 MCG tablet Take 25 mcg by mouth daily Active tiZANidine (ZANAFLEX) 2 MG tablet Take 2 mg by mouth 3 times daily as needed for muscle spasms Active LATUDA 20 MG TABS tablet Take 60 mg by mouth At Bedtime 01/28/20 Active NURTEC 75 MG TBDP Take 75 mg by mouth as needed for migraine 05/23/19 21 Active methylphenidate (METADATE ER) 20 MG CR tablet Take 20 mg by mouth daily AT 1000 DAILY 05/19/19 21 Active methylphenidate (RITALIN) 10 MG tablet Take 10 mg by mouth 2 times daily as needed AT 0700 & 1200 03/28/20 20 Active topiramate (TOPAMAX) 100 MG tablet Take 100 mg by mouth At Bedtime Active buPROPion (WELLBUTRIN XL) 300 MG 24 hr tablet Take 300 mg by mouth every morning Active LINZESS 290 MCG capsule Take 290 mcg by mouth every morning 06/03/19 21 Active AMITIZA 24 MCG capsule Take 24 mcg by mouth every morning 04/19/19 21 Active metoclopramide (REGLAN) 10 MG tablet Take 10 mg by mouth as needed for nausea 06/08/19 21 Active pyridostigmine (MESTINON) 60 MG tablet Take 120 mg by mouth 2 times daily 05/11/19 21 Active omeprazole (PRILOSEC) [address] capsule Take 1 capsule (20 mg) by mouth daily 31 capsule 01/01/20 23 Active promethazine (PHENERGAN) [address] 1 suppository (25 mg) rectally every 6 hours as needed for nausea (ab pain, vomiting) 5 suppository 01/01/20 23 Active Active Problems Problem Noted Date Diagnosed Date Dehydration 06/13/2020 Hypokalemia 06/13/2020 Dizziness 06/13/2020 Weakness 06/13/2020 Prolonged QT interval 06/13/2020 Social History Tobacco Use Types Packs/Day Years Used Date Smoking Tobacco: Never Adolescent Education Answer Date Record ed Getting School Help Needed Not on file 01/04 Comments No Sex and Gender Information Value Date Recorded Sex Assigned at Not on file Legal Sex Female 10:16 AM CDT Gender Identity Not on file Sexual Orientation [...] 61.7 kg (136 lb) 05/22/2023 12:54 PM PHOTO PRINT SPECIALIST Height 160 cm (5' 3) 12/31/2022 3:04 PM CDT Body Mass Index 24.09 12/31/2022 3:04 PM CDT Plan of Treatment Not on file Procedures Procedure Name Priority Date/Time Associated Diagnosis Comments COMPREHENSIVE METABOLIC PANEL STAT 12/31/2022 4:12 PM CDT TSH WITH FREE T4 REFLEX STAT 06/13/2020 2:39 PM PHOTO PRINT SPECIALIST Prolonged QT interval from Last 3 Months or Most Recently Relevant to Health Maintenance Results * (ABNORMAL) Comprehensive metabolic panel (12/31/2022 4:12 PM CDT) Sodium 145 136 - 145 mmol/L 12/31/2022 4:47 PM [facility] Potassium 3.8 3.4 - 5.3 mmol/L 12/31/2022 4:47 PM [facility] Chloride 111(H) 98 - 107 mmol/L 12/31/2022 4:47 PM [facility] Carbon Dioxide (CO2) 25 22 - 29 mmol/L 12/31/2022 4:47 PM [facility] Anion Gap 9 7 - 15 mmol/L 12/31/2022 4:47 PM [facility] Urea Nitrogen 7.5(L) 8.0 - 23.0 mg/dL 12/31/2022 4:47 PM [facility] Creatinine 1.09(H) 0.51 - 0.95 mg/dL 12/31/2022 4:47 PM [facility] Calcium 9.6 8.8 - 10.2 mg/dL 12/31/2022 4:47 PM [facility] Glucose 83 70 - 99 mg/dL 12/31/2022 4:47 PM [facility] Alkaline Phosphatase 70 35 - 104 U/L 12/31/2022 4:47 PM [facility] AST 27 0 - 45 U/L 12/31/2022 4:47 PM [facility] Comment:Reference intervals for this test were updated on 09/24/2022 to more accurately reflect our healthy population. There may be differences in the flagging of prior results with similar values performed with this method. Interpretation of those prior results can be made in the context of the updated reference intervals. ALT 12 0 - 50 U/L 12/31/2022 4:47 PM [facility] Comment:Reference intervals for this test were updated on 09/24/2022 to more accurately reflect our healthy population. There may be differences in the flagging of prior results with similar values performed with this method. Interpretation of those prior results can be made in the context of the updated reference intervals. Protein Total 7.1 6.4 - 8.3 g/dL 12/31/2022 4:47 PM CDT [facility] Albumin 4.6 3.5 - 5.2 g/dL 12/31/2022 4:47 PM T [facility] Bilirubin Total 0.3 <=1.2 mg/dL 12/31/2022 4:47 PM T [facility] GFR Estimate 54(L) >60 mL/min/1. 73m2 12/31/2022 4:47 PM CDT [facility] Blood VENOUS LINE / Unknown Venipuncture / Unknown 12/31/2022 4:12 PM CDT 12/31/2022 4:15 PM CDT Natacha De Oliveira MD LAB - BLOOD ORDERABLES Final Re sult Performing Organization Address City/[facility]/ZIP Co de Phone Number [facility] [address] [place], [place] [id number] [place] [address] * TSH with free T4 reflex (06/13/2020 2:39 PM PHOTO PRINT SPECIALIST) TSH 0.46 0.40 - 4.00 mU/L 06/13/2020 3:52 PM PHOTO PRINT SPECIALIST [facility] Blood specimen (specimen) 06/13/2020 2:39 PM PHOTO PRINT SPECIALIST 06/13/2020 3:06 PM PHOTO PRINT SPECIALIST Rivera Allen MD LAB - BLOOD ORDERABLES Final Res ult [facility] [place] [address], [facility] [phone] from Last 3 Months or Most Recently Relevant to Health Maintenance Insurance MEDICA DUAL [employer] [facility] [place] PARTNERS [employer] [facility] NON/FV PARTNERS [place] [id number] Advance Directives For more information, please contact: [phone] Documents on File Type Date Recorded Patient Sap Bi Developer Expl anation Advance Directives and Living Will [...] Discussion with kennethe nt/ legal decision maker Care Teams Auto Radiator Mechanic Relationship Specialty Start Date End Date Rafal Rodríguez MD PCP - General 10/26/18
--- OUTSIDE RECORDS SUMMARY | 2024-02-18 07:48 | XMS_ITS | Clinical Summary ---
Author Organization [place] Address [address] [place] [address]. [place] [address] Care Team Providers Care Spooling Machine Operator Name Role Phone Rafal Rodríguez MD Primary Care Provider [phone] Allergies Active Allergy Reactions Criticality Noted Date [...] 61.7 kg (136 lb) 05/22/2023 12:54 PM CLINICAL ASSESSMENT MANAGER Height 160 cm (5' 3) 12/31/2022 3:04 PM CDT Body Mass Index 24.09 12/31/2022 3:04 PM CDT Plan of Treatment Health Maintenance Due Date Last Done Comments ANNUAL REVIEW OF HM ORDERS 1950 CT COLONOGRAPHY 1950 DEXA 1950 FIT 1950 FLEX SIG 1950 sDNA (Cologuard) 1950 COLONOSCOPY 06/17/1961 COLORECTAL CANCER SCREENING 06/17/1961 HEPATITIS C SCREENING 06/17/1969 LIPID 1991 FALL RISK ASSESSMENT 06/17/2016 TSH W/FREE T4 [...] 12/31/2022, 03/0 05/2020, 06/13/2020, Additional history exists RSV VACCINE (1 - 1-dose 75+ series) 06/17/2026 DTAP/TDAP/TD IMMUNIZATION (3 - Td or Tdap) [...] FREE T4 REFLEX STAT 06/13/2020 2:39 PM CLINICAL ASSESSMENT MANAGER Prolonged QT interval from Last 3 Months or Most Recently Relevant to Health Maintenance Results * (ABNORMAL) Comprehensive metabolic panel (12/31/2022 4:12 PM CDT) Sodium 145 136 - 145 mmol/L 12/31/2022 4:47 PM [facility] Potassium 3.8 3.4 - 5.3 mmol/L 12/31/2022 4:47 PM [facility] Chloride 111(H) 98 - 107 mmol/L 12/31/2022 4:47 PM [facility] Carbon Dioxide (CO2) 25 22 - 29 mmol/L 12/31/2022 4:47 PM T [facility] Anion Gap 9 7 - 15 mmol/L 12/31/2022 4:47 PM [facility] Urea Nitrogen 7.5(L) 8.0 - 23.0 mg/dL 12/31/2022 4:47 PM [facility] Creatinine 1.09(H) 0.51 - 0.95 mg/dL 12/31/2022 4:47 PM [facility] Calcium 9.6 8.8 - 10.2 mg/dL 12/31/2022 4:47 PM [facility] Glucose 83 70 - 99 mg/dL 12/31/2022 4:47 PM [facility] Alkaline Phosphatase 70 35 - 104 U/L 12/31/2022 4:47 PM [facility] AST 27 0 - 45 U/L 12/31/2022 4:47 PM [facility] Comment:Reference intervals for this test were updated on 09/24/2022 to more accurately reflect our healthy population. There may be differences in the flagging of prior results with similar values performed with this method. Interpretation of those prior results can be made in the context of the updated reference intervals. ALT 12 0 - 50 U/L 12/31/2022 4:47 PM T [facility] Comment:Reference intervals for this test were updated on 09/24/2022 to more accurately reflect our healthy population. There may be differences in the flagging of prior results with similar values performed with this method. Interpretation of those prior results can be made in the context of the updated reference intervals. Protein Total 7.1 6.4 - 8.3 g/dL 12/31/2022 4:47 PM CDT [facility] Albumin 4.6 3.5 - 5.2 g/dL 12/31/2022 4:47 PM T [facility] Bilirubin Total 0.3 <=1.2 mg/dL 12/31/2022 4:47 PM T [facility] GFR Estimate 54(L) >60 mL/min/1. 73m2 12/31/2022 4:47 PM CDT [facility] Blood VENOUS LINE / Unknown Venipuncture / Unknown 12/31/2022 4:12 PM CDT 12/31/2022 4:15 PM CDT Natacha De Oliveira MD LAB - BLOOD ORDERABLES Final Re sult [facility] [address] [place] [address], [facility] [phone] * TSH with free T4 reflex (06/13/2020 2:39 PM CLINICAL ASSESSMENT MANAGER) TSH 0.46 0.40 - 4.00 mU/L 06/13/2020 3:52 PM CLINICAL ASSESSMENT MANAGER [facility] Blood specimen (specimen) 06/13/2020 2:39 PM CLINICAL ASSESSMENT MANAGER 06/13/2020 3:06 PM CLINICAL ASSESSMENT MANAGER Rivera Allen MD LAB - BLOOD ORDERABLES Final Res ult [facility] [address] [place] [address], [facility] [phone] from Last 3 Months or Most Recently Relevant to Health Maintenance Insurance [address] [place] [address] [email or web address] [facility] [place] PART[place] [email or web address] [facility] [place] Advance Directives For more information, please contact: [phone] Documents on File Type Date Recorded Patient Arboriculture Instructor Expl anation Advance Directives and Living Will 06/30/2020 11:38 AM Invalid Directive datred 04-27-19 received * Full Code (Latest Code Status on File) Date Activated Date Inactivated Comments 06/14/2020 12:02 PM 12/31/2022 2:58 PM Question Answer Comments Code status determined by: Discussion with patie nt/ legal decision maker * Full Code Date Activated Date Inactivated Comments 06/13/2020 7:35 PM 06/14/2020 12:02 PM All basic and advanced life-sustaining interventions are performed as appropriate Question Answer Comments Code status determined by: Discussion with sen nt/ legal decision maker Care Teams Spooling Machine Operator Relationship Specialty Start Date End Date Rafal Rodríguez MD PCP - General 10/26/18
--- NOTE | 2024-02-18 08:00 | CRLHL7_ITS ---
For Patients: As a result of the 21st Century Cures Act, medical imaging exams and procedure reports are released immediately into your electronic medical record. You may view this report before your referring provider. If you have questions, please contact your health care provider. EXAM: NM GASTRIC EMPTYING SCAN Indication : 73 year-old woman with bloating. TECHNIQUE: Radiopharmaceutical: 1.0 Millicurie 99m Tc sulfur colloid, combined with a standard egg meal, administered orally. Patient consumed the majority of the solid portion of standard meal and water. Image acquisition: Static anterior/posterior images were obtained immediately after administration, and at 30, 60, 90, 120, and 240 minutes post radiotracer administration. At each time point, the geometric mean was calculated based on ROIs placed over the stomach. Comparison: None Findings: Radiotracer is seen to progress from the gastric fundus to the antrum and into the small bowel. Summary of gastric activity*: 1 hour: 26% empty, 74% retained (normal is <30 and <90% retention). 2 hours: 54% empty, 46% retained (normal is <60% retention). 4 hours: 62% empty, 38%retained (normal is <10% retention). Impression: Normal early gastric emptying rate at the 1 and 2 hour timepoints of the study, with delayed solid gastric emptying at 4 hours post ingestion with 38% retained radiolabeled gastric contents, above normal limits. * Data are from Am J Gastroenterol. 2008; 103:753-763 Dictated by Larry Mcguire MD @ 02/19/2024 9:19:18 PM (Electronically Signed)
== END 2024-02-18 07:44 | disposition home or self-care (01) ==
PROVIDERS: PCP Family Medicine; Visit Provider Nurse Practitioner Adult Health
DX: R14.0 Abdominal distension (gaseous) (principal)
CPT/HCPCS: 78264; A9541

== ENCOUNTER 2024-06-12 13:58 | Outpatient (RCR) | payer MEDICARE, SELFPAY ==
--- NOTE | 2024-04-21 13:44 | ONC.NURNOTE ---
Diagnosis: Osteoporosis
--- NOTE | 2024-04-22 11:45 | URNOTE ---
Request received for authorization for Reclast ([id number]). Prior authorization is not required, Rep. Pati Campbell Ref#name, 04/17/2024 1430pm.
--- NOTE | 2024-06-02 11:11 | ONC.NURNOTE ---
Elizabeth called in to reschedule her Reclast, she decided to find a ride before rescheduling, she will call back to reschedule.
[2024-06-12 14:23] VITALS: BP 106/67; PULSE 78; RESP 16; TEMP 35.9; O2SAT 97
== END 2024-12-09 23:59 | disposition home or self-care (01) ==
LOC: CCIC 13:58
PROVIDERS: PCP Family Medicine; Referring Provider Family Medicine; Visit Provider Clinical Nurse Specialist
DX: M81.0 Age-related osteoporosis without current pathological fracture (principal)
CPT/HCPCS: 96365; J3489